=== PATIENT | female | born 1975 ===

== ENCOUNTER → 2022-09-29 08:43 | Outpatient (BNVA) | payer BC, SELFPAY | PROVIDERS: PCP Family Medicine; Visit Provider Physician Assistant ==

== ENCOUNTER 2022-10-23 08:01 | Outpatient (AMB) | payer BC, SELFPAY ==
--- NOTE | 2022-10-23 08:48 | MHC.OFFVISWM ---
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 HPI Details Start time: 9.00am, End time: 9.45am I spent 40 minutes speaking with the patient on the phone plus an additional 5 minutes reviewing and updating records for a total of 45 minutes HPI Comments History of Present Illness Details Previous weight loss efforts: self diets, exercise Wakes up: 4.30am, Sleeps: 9pm Breakfast: brunch on weekends Lunch: usually skips, 1pm if she has one Dinner: 7.30pm (pasta, rice, vegetables, meat) Snacks: one snack on weekends Exercise: walking, has a home [employer] membership Fluids: Coffee: 20oz/day with milk, tea: none, soda: none, juice: none, ETOH: beer x6 bottles or wine x2 glasses x1-2/week PFSH Medical History (Updated 10/23/22 @ 08:52 by Alireza Hyde MD) Hypersomnolence Hyperlipidemia Diverticulitis DJD (degenerative joint disease) Morbid obesity Surgical History (Updated 09/29/22 @ 09:06 by Veronique Arboleda CMA) Hx of tubal ligation Hx of cholecystectomy Social History (Updated 09/29/22 @ 09:06 by Veronique Arboleda CMA) Alcohol intake: current Alcohol intake frequency: a few times a week Patient Tobacco Use Status: Never used Tobacco Assessment & Plan Assessment & Plan (1) Morbid obesity: Code(s): E66.01 - Morbid (severe) obesity due to excess calories Plan: 1. Plan for lap sleeve gastrectomy. If diaphragmatic or ventral hernias are present at time of surgery, these will be repaired laparoscopically as well. Risks and complications were discussed in detail including possible conversion to an open procedure, anastomotic leak, bleeding requiring transfusion, small bowel obstruction, , DVT and pulmonary embolism, cardiac, or pulmonary complications, as long term care phlebotomist complications such as anastomotic ulcer, insufficient weight loss and vitamin deficiencies. I emphasized the importance of close follow-up, adherence to instructions and good communication. 2. Nutritional counseling. Start with 2 BSN Catherine-6 (1 scoop = 22gr protein) protein shakes (HALF scoop EACH in 8oz water each) at 6am-8am and 9am-11am, 2 protein bars (Zone Perfect protein bars, buy at [employer], [employer], [employer], or [employer]) at 12pm-2pm and 3pm-5pm and dinner at 6pm-7pm (10 forks of protein and 10 forks of salad/vegetables). Meal to include lean meat (beef, fish, pork, turkey, chicken), or swedish yogurt, or egg whites, or beans with a salad with olive oil and fruits (berries, pears, apples, kiwi). Avoid salt, breads, potatoes, rice, pasta, desserts. 3. Each shake would be drunk slowly, like coffee in a period of 2 hours. May add your coffee into your shakes, if flavors match. 4. Cut each bar in 4 pieces and eat each piece in 30min to make each bar last 2 hours. 5. I emphasized the importance of measuring accurately the food portion and measure it when serving the food in plate 6. The meal portions include 10 full-size forks of meat and 10 full-size forks of salad. You always eat the meat portion but you can replace up to 5 forks for salad/vegetables with rice, potatoes or pasta, or a fruit if you like. The less you do it the better weight loss will be. 7. One full-size fork is what it can be scooped on the fork without falling aside and not what can be bit with the fork. Use regular forks like those you find in a typical restaurant. 8. Please send me weight measurements as soon as possible and then once a week. Always include your diet and exercise plan. 9. Start Elliptical with an incline of 2.0 and resistance of 4.0. Increase resistance by 1 every 3 min to a max resistance of 10.0, and repeat cycles for the goal calorie of the day. Goal is to burn 2000 calories per week on exercise, which means either 300 calories daily, or 400 calories 5 days per week, or 500 calories 4 days per week, or 650 calories 3 days per week. 10. Although it is unlikely, it is important, if you are not on menopause, of avoiding and for at least 18 months postoperatively and has been discussed at the infosession. 11. Goal is to lose at least 1.5-2lbs per week 12. Goal to lose 10% of your weight before surgery, which is about 2lbs. Ultimate weight goal: 259lbs before surgery 13. Please follow the diet plan exactly without any change. If you don't like something about the plan or you feel hungry you need to communicate with me so I can help you revise the plan. You should not change the plan yourself. (2) Hyperlipidemia: Code(s): E78.5 - Hyperlipidemia, unspecified (3) Hypersomnolence: Code(s): G47.10 - Hypersomnia, unspecified Orders: Orders Lipid Panel Today E66.01 - Morbid (severe) obesity due to excess calories, E78.5 - Hyperlipidemia, unspecified, G47.10 - Hypersomnia, unspecified IRON PROFILE Today E66.01 - Morbid (severe) obesity due to excess calories, E78.5 - Hyperlipidemia, unspecified, G47.10 - Hypersomnia, unspecified Vitamin B12 and Folate Today E66.01 - Morbid (severe) obesity due to excess calories, E78.5 - Hyperlipidemia, unspecified, G47.10 - Hypersomnia, unspecified Zinc Today E66.01 - Morbid (severe) obesity due to excess calories, E78.5 - Hyperlipidemia, unspecified, G47.10 - Hypersomnia, unspecified Vitamin B1 Today E66.01 - Morbid (severe) obesity due to excess calories, E78.5 - Hyperlipidemia, unspecified, G47.10 - Hypersomnia, unspecified Vitamin A Today E66.01 - Morbid (severe) obesity due to excess calories, E78.5 - Hyperlipidemia, unspecified, G47.10 - Hypersomnia, unspecified C Reactive Protein Today E66.01 - Morbid (severe) obesity due to excess calories, E78.5 - Hyperlipidemia, unspecified, G47.10 - Hypersomnia, unspecified TSH reflex Free T4 Today E66.01 - Morbid (severe) obesity due to excess calories, E78.5 - Hyperlipidemia, unspecified, G47.10 - Hypersomnia, unspecified H Pylori Breath Test Today E66.01 - Morbid (severe) obesity due to excess calories, E78.5 - Hyperlipidemia, unspecified, G47.10 - Hypersomnia, unspecified Vitamin D 25-OH Total Today E66.01 - Morbid (severe) obesity due to excess calories, E78.5 - Hyperlipidemia, unspecified, G47.10 - Hypersomnia, unspecified Hemoglobin A1c Today E66.01 - Morbid (severe) obesity due to excess calories, E78.5 - Hyperlipidemia, unspecified, G47.10 - Hypersomnia, unspecified US abdomen comp w elastography Today E66.01 - Morbid (severe) obesity due to excess calories, E78.5 - Hyperlipidemia, unspecified, G47.10 - Hypersomnia, unspecified FL upper GI w air Today E66.01 - Morbid (severe) obesity due to excess calories, E78.5 - Hyperlipidemia, unspecified, G47.10 - Hypersomnia, unspecified Insulin Today E66.01 - Morbid (severe) obesity due to excess calories, E78.5 - Hyperlipidemia, unspecified, G47.10 - Hypersomnia, unspecified Complete Blood Count Auto Diff Today E66.01 - Morbid (severe) obesity due to excess calories, E78.5 - Hyperlipidemia, unspecified, G47.10 - Hypersomnia, unspecified Comprehensive Met. Panel Today E66.01 - Morbid (severe) obesity due to excess calories, E78.5 - Hyperlipidemia, unspecified, G47.10 - Hypersomnia, unspecified Ferritin Today E66.01 - Morbid (severe) obesity due to excess calories, E78.5 - Hyperlipidemia, unspecified, G47.10 - Hypersomnia, unspecified PTHI Today E66.01 - Morbid (severe) obesity due to excess calories, E78.5 - Hyperlipidemia, unspecified, G47.10 - Hypersomnia, unspecified XR chest 2V Today E66.01 - Morbid (severe) obesity due to excess calories, E78.5 - Hyperlipidemia, unspecified, G47.10 - Hypersomnia, unspecified ECG 12 lead EKG Today E66.01 - Morbid (severe) obesity due to excess calories, E78.5 - Hyperlipidemia, unspecified, G47.10 - Hypersomnia, unspecified RT home sleep study Today E66.01 - Morbid (severe) obesity due to excess calories, E78.5 - Hyperlipidemia, unspecified, G47.10 - Hypersomnia, unspecified Referrals Behavioral Health Referral E66.01 - Morbid (severe) obesity due to excess calories, E78.5 - Hyperlipidemia, unspecified, G47.10 - Hypersomnia, unspecified Nutrition/Dietitian Referral E66.01 - Morbid (severe) obesity due to excess calories, E78.5 - Hyperlipidemia, unspecified, G47.10 - Hypersomnia, unspecified Telehealth Telehealth Location of provider rendering services: practice address Location of patient: address on file Patient Identification confirmed using: Name, : Yes Telehealth method: voice only Patient verbally consented to treatment: Yes Patient verbally consented to billing insurance company: Yes Patient informed of any privacy concerns related to visit: Yes Minutes spent on Phone/Video with Pt.: 45 Coding Level of Care Code Tele [facility] Pt Level 4 (39513) Diagnoses Morbid obesity E66.01 Hyperlipidemia E78.5 Hypersomnolence G47.10 Time Spent (min) 45
[2022-10-23 09:36] VITALS: BMI 40.0
== END 2022-10-23 09:37 | disposition home or self-care (01) ==
LOC: HO.HBS 08:01
PROVIDERS: PCP Family Medicine; Visit Provider Surgery
DX: E66.01 Morbid (severe) obesity due to excess calories (principal); Z68.41 Body mass index [BMI] 40.0-44.9, adult; E78.5 Hyperlipidemia, unspecified; G47.10 Hypersomnia, unspecified
CPT/HCPCS: 99443

== ENCOUNTER → 2022-10-23 08:01 | Outpatient (BNVA) | payer BC, SELFPAY | PROVIDERS: PCP Family Medicine; Visit Provider Surgery ==

== ENCOUNTER → 2022-10-26 15:26 | Outpatient (REF) | payer BC, SELFPAY ==
--- NOTE | ~2022-10-26 | XR_ITS ---
EXAMINATION: XR CHEST 2 VIEWS CLINICAL INFORMATION: Morbid obesity. COMPARISON: None. TECHNIQUE: Frontal and lateral views of the chest were obtained. FINDINGS: The heart, great vessels, pulmonary vasculature and mediastinum are normal. The lungs show no focal infiltrate, effusion or pneumothorax. There is no acute osseous abnormality. XR/XR chest 2V IMPRESSION: No active cardiopulmonary disease.
--- NOTE | 2022-10-26 15:32 | ECG_ITS ---
Test Reason : morbid obesity Blood Pressure : / mmHG Vent. Rate : 067 BPM Atrial Rate : 067 BPM P-R Int : 120 ms QRS Dur : 100 ms QT Int : 414 ms P-R-T Axes : 020 -36 035 degrees QTc Int : 437 ms Normal sinus rhythm Left axis deviation Moderate voltage criteria for LVH, may be normal variant ( R in aVL , Marcelino product ) Abnormal ECG No previous ECGs available Referred By: Alireza Hyde Electronically Signed By:HEIDY WALLACE
== END ==
LOC: HO.CARD 15:26
PROVIDERS: PCP Family Medicine; Visit Provider Surgery
DX: E66.01 Morbid (severe) obesity due to excess calories (principal); E78.5 Hyperlipidemia, unspecified; G47.10 Hypersomnia, unspecified
CPT/HCPCS: 71046; 93005

== ENCOUNTER 2022-10-30 06:16 | Outpatient (REF) | payer BC, SELFPAY ==
[2022-10-30 06:37] LABS: MANUAL DIFF FLAG NO
[2022-10-30 08:12] LABS: Basophils Absolute Auto 0.1 X10*3/uL (0.0-0.2); Basophils Percent Auto 0.8 % (0-2); Eosinophils Absolute Auto 0.2 X10*3/uL (0.0-0.4); Eosinophils Percent Auto 2.4 % (0-4); Hemoglobin 12.1 g/dl (12.0-16.0); Imm Gran Abs Auto 0.01 X10*3/uL (0.00-0.03); Imm Gran Pct Auto 0.2 % (0.0-0.4); Lymphocytes Absolute Auto 1.2 X10*3/uL (1.2-4.9); Lymphocytes Percent Auto 18.8 % (20-40); Mean Corpuscular Hemoglobin 23.8 pg (27.0-33.0); Mean Corpuscular Volume 76.8 fL (80.0-98.0); Mean Platelet Volume 9.8 fL (9.4-12.3); Monocytes Absolute Auto 0.5 X10*3/uL (0.1-1.2); Monocytes Percent Auto 7.4 % (2-11); Neutrophils Absolute Auto 4.7 x10*3/uL (2.0-8.3); Neutrophils Percent Auto 70.4 % (45-73); Platelet Count 378 X10*3/uL (160-400); Red Blood Count 5.08 X10*6/uL (4.20-5.50); Red Cell Distribution Width 15.4 % (11.0-16.0); White Blood Count 6.6 X10*3/uL (4.8-10.8)
[2022-10-30 08:20] LABS: Estimated Average Glucose 108 mg/dL; Hemoglobin A1c % 5.4 % (<6.0)
[2022-10-30 08:56] LABS: Alanine Aminotransferase 19 U/L (0-31); Albumin Level 4.2 g/dL (3.5-5.0); Alkaline Phosphatase 68 U/L (39-117); Anion Gap 13 (12-20); Aspartate Amino Transferase 17 U/L (5-31); Bilirubin Total 0.6 mg/dL (0.0-1.0); Blood Urea Nitrogen 20 mg/dL (9-16); C Reactive Protein 1.07 mg/dL (< or = 0.50); Calcium 9.4 mg/dL (8.4-10.2); Carbon Dioxide 23 mmol/L (22-29); Chloride 106 mmol/L (96-108); Cholesterol 233 mg/dL (<200); Estimated Glomerular Filt Rate > 60; Glucose Random 99 mg/dL (60-115); HDL Cholesterol 57 mg/dL (>40); Iron 52 mcg/dL (30-160); LDL Cholesterol Calculated 159 mg/dL (<100); Percent Iron Saturation 13 % (15-50); Potassium 4.3 mmol/L (3.3-5.1); Sodium 138 mmol/L (135-145); Total Iron Binding Capacity 407 mcg/dL (228-428); Total Protein 7.5 g/dL (6.5-8.0); Triglycerides 85 mg/dL (<150); Unsaturated Iron Binding 355 ug/dL
[2022-10-30 09:03] LABS: Ferritin 13 ng/mL (10-250); Insulin 25 uU/mL (2-29); TSH reflex Free T4 0.95 uIU/mL (0.32-4.0); Vitamin D 25-OH Total 28.9 ng/mL (>30)
[2022-10-30 09:07] LABS: Folate 11.7 ng/mL (> or = 4.0); Vitamin B12 517 pg/mL (200-900)
[2022-11-02 13:59] LABS: Calcium (PTHI) 9.6 mg/dL (8.6-10.2); PTHI 81 pg/mL (16-77)
[2022-11-03 14:09] LABS: Zinc 78 mcg/dL (60-130)
[2022-11-04 21:13] LABS: Vitamin A 43 mcg/dL (38-98)
[2022-11-07 15:18] LABS: Vitamin B1 9 nmol/L (8-30)
== END 2022-10-30 06:17 | disposition home or self-care (01) ==
LOC: HO.LAB 06:16
PROVIDERS: PCP Family Medicine; Visit Provider Surgery
DX: E66.01 Morbid (severe) obesity due to excess calories (principal); E78.5 Hyperlipidemia, unspecified; G47.10 Hypersomnia, unspecified
CPT/HCPCS: 36415; 80053; 80061; 82306; 82607; 82728; 82746; 83036; 83525; 83540; 83970; 84425; 84443; 84590; 84630; 85025; 86140

== ENCOUNTER 2022-11-04 13:23 | Outpatient (AMB) | payer BC, SELFPAY ==
--- NOTE | 2022-11-04 12:52 | A.OFFWM_ITS ---
Intake Intake Visit Reasons: VIDEO BH Intake Allergies No Known Allergies [No Known Allergies*] Allergy (Verified 10/23/22 08:49) PFSH Medical History (Updated 11/04/22 @ 13:28 by Debbie Hernandez) Hypersomnolence Hyperlipidemia Diverticulitis DJD (degenerative joint disease) Morbid obesity Surgical History (Updated 09/29/22 @ 09:06 by Veronique Arboleda CMA) Hx of tubal ligation Hx of cholecystectomy Social History (Updated 09/29/22 @ 09:06 by Veronique Arboleda CMA) Alcohol intake: current Alcohol intake frequency: a few times a week Patient Tobacco Use Status: Never used Tobacco Behavioral Health Assessment Weight Management Therapy Therapy Notes Details Patient stated that she is looking to have weight loss surgery to help improve her health and quality of life. She has no history of inpatient psychiatric admissions, history of problems with drugs or alcohol and no eating disorder diagnosis. Pt reported that she has struggles with anxiety struggles (insecurity and self esteem as well) and was seeing a therapist more than 7 years ago. She does not take medication for anxiety but has in the past as needed (Lorazepam). Also stress due to toxic relationship. Presenting Concerns Referral Source provider Reason for referral weight loss surgery evaluation Precipitating Event obesity Living Situation Current Living Situation Own At risk of losing current housing? No Satisfied with current living situation? Yes Comments Pt lives with her two dogs and her fiance. Food/Weight/Diet Expectations of change weight loss and maintenance History/Relationship with weight . She reported being 220lbs when she met her partner 7 years ago. Also quit smoking 4 years ago which caused weight gain. She reported being very thin until age 18 and then reached her heaviest after being out on control implant. She had her daughter at 15 years old. History/Relationship with dieting exercise, eating healthy Social History Family history and relationship Pt has two adult children ages 31 and 26 and two grandchildren. She has been with partner for 7 years. Pt stated that she was born in [place] and raised in this area by her mother and stepfather and two younger brothers. Her mother at age 59 years from drug addiction and HIV. Her biological father came into her life at age 15 and passed a few years ago. 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 none known Education Highest grade completed college Preferred learning style Auditory, Verbal, Written, Learn by doing and Visual Currently enrolled in educational program? No Interested in further educational program? 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 No Meaningful activities walking her dogs Financial Situation Describe current financial situation Comfortable Financial assistance? None Service Service? No Mental Health and Addiction Treatment Current/Past substance abuse? No Current/Past addictive behavior concerns? No Medical and Physical Health Summary Physical exam in the last year? Yes Pain Screening Current pain? No Pain in the last few months? No Medications Is the patient compliant with medications? Yes Does the patient have Calix Guardian in place? Not applicable Does the patient use complimentary health approaches? No Trauma/Abuse History History of trauma? Yes Questionnaires PHQ-9 Over the last 2 weeks, how often have you been bothered by any of the following problems? 1. Little interest or pleasure in doing things: more than half the days 2. Feeling down, depressed, or hopeless: several days 3. Trouble falling or staying asleep, or sleeping too much: several days 4. Feeling tired or having little energy: several days 5. Poor appetite or overeating: several days 6. Feeling bad about yourself - or that you are a failure or have let yourself or your family down: more than half the days 7. Trouble concentrating on things, such as reading the newspaper or watching television: several days 8. Moving or speaking so slowly that other people could have noticed. Or the opposite - being so fidgety or restless that you have been moving around a lot more than usual: not at all 9. Thoughts that you would be better off or of hurting yourself in some way: not at all Total score: 9 Depression Screening Interpretation: Positive Source: Developed by Drs. Siva Hays, Shanna Colindres, Khurram Cole and colleagues, with an educational camilo from [employer]. Binge Eating Scale Group 1 A. I don't feel self-conscious about my wt. or body size when I'm with others. B. I feel concerned about how I look to others, but it normally does not make me fell disappointed with myself C. I do get self-conscious about my appearance and wt. which makes me feel disappointed in myself. D. I feel very self-conscious about my wt. and frequently I feel intense shame and disgust for myself. I try to avoid social contacts because of my self- consciousness. Response Group 1: C Group 2 A. I don't have any difficulty eating slowly in the proper manner. B. Although I seem to gobble down foods, I don't end up feeling stuffed because of eating to much. C. At times, I tend to eat quickly and then, I feel uncomfortably full afterwards. D. I have the habit of bolting down my food, without really chewing it. When this happens I usually feel uncomfortably stuffed because I've eaten to much. Response Group 2: C Group 3 A. I feel capable to control my eating urges when I want to. B. I feel like I have failed to control my eating more than the average person. C. I feel utterly helpless when it comes to feeling in control of my eating urges. D. Because I feel so helpless about controlling my eating I have become very desperate about trying to get control. Response Group 3: A Group 4 A. I don't have the habit of eating when I'm bored. B. I sometimes eat when I'm bored, but often I'm able to get busy and get my mind off food. C. I have a regular habit of eating when I'm bored, but occasionally, I can use some other activity to get my mind off eating. D. I have a strong habit of eating when I'm bored. Nothing seems to help me breath the habit. Response Group 4: C Group 5 A. I'm usually physically hungry when I eat something. B. Occasionally, I eat something on impulse even though I really am not hungry. C. I have the regular habit of eating foods, that I might not really enjoy, to satisfy a hungry feeling even though physically, I don't need the food. D. Although I'm not physically hungry, I get a hungry feeling in my mouth that only seems to be satisfied when I eat a food, like sandwich, that fills my mouth. Sometimes, when I eat the food to satisfy my mouth hunger, I then spit the food out so I won't gain weight. Response Group 5: A Group 6 A. I don't feel any guilt or self-hate after I overeat. B. After I overeat, occasionally I feel guilt or self-hate. C. Almost all the time I experience strong guilt or self-hate after I overeat. Response Group 6: C Group 7 A. I don't lose total control of my eating when dieting even after periods when I overeat. B. Sometimes when I eat a forbidden food on a diet, I feel like I blew it and eat even more. C. Frequently, I have the habit of saying to myself, I've blown it now, why not go all the way, when I overeat on a diet. When that happens I eat more. D. I have a regular habit of starting a strict diets for myself but I break the diets by going on an eating binge. My life seems to be either a feast or famine. Response Group 7: B Group 8 A. I rarely eat so much food that I feel uncomfortably stuffed afterwards. B. Usually about once a month, I each such a quantity of food, I end up feeling very stuffed. C. I have regular periods during the month when I eat large amounts of food, either at mealtime or at snacks. D. I eat so much food that I regularly feel quite uncomfortable after eating and sometimes a bit nauseous. Response Group 8: B Group 9 A. My level of calorie intake does not go up very high or go down very low on a regular basis. B. Sometimes after I overeat, I will try to reduce my caloric intake to almost nothing to compensate for the excess calories I've eaten. C. I have a regular habit of overeating during the night. It seems that my routine is not to be hungry in the morning but overeat in the evening. D. In my adult years, I have had week-long periods where I practically starve myself. This follows periods when I overeat. It seems I live a life of either feast or famine. Response Group 9: D Group 10 A. I usually am able to stop eating when I want to. I know when enough is enough. B. Every so often, I experience a compulsion to eat which I can't seem to control. C. Frequently, I experience strong urges to eat which I seem unable to control, but at other times I can control my eating urges. D. I feel incapable of controlling urges to eat. I have a fear of not being able to stop eating voluntarily. Response Group 10: B Group 11 A. I don't have any problem stopping eating when I feel full. B. I usually can stop eating when I feel full but occasionally overeat leaving me feeling uncomfortably stuffed. C. I have a problem stopping eating once I start and usually I feel uncomfortably stuffed after I eat a meal. D. Because I have a problem not being able to stop eating when I want, I sometimes have to induce vomiting to relieve my stuffed feeling. Response Group 11: B Group 12 A. I seem to eat just as much when I'm with others, Family social gatherings as when I'm by myself. B. Sometimes, when I'm with other persons, I don't eat as much as I want to eat because I'm self-conscious about my eating. C. Frequently, I eat only a small amount of food when others are present, because I'm very embarrassed about my eating. D. I feel so ashamed about overeating that I pick times to overeat when I know no one will see me. I feel like a closet eater. Response Group 12: A Group 13 A. I eat three meals a day with only an occasional between meal snack. B. I eat 3 meals a day, but I also normally snack between meals. C. When I am snacking heavily, I get in the habit of skipping regular meals. D. There are regular periods when I seem to be continually eating, with no planned meals. Response Group 13: C Group 14 A. I don't think much about trying to control unwanted eating urges. B. At least some of the time, I feel my thoughts are pre-occupied with trying to control my eating urges. C. I feel that frequently I spend much time thinking about how much I ate or about trying not to eat anymore. D. It seems to me that most of my waking hours are pre-occupied by thoughts about eating or not eating. I feel like I'm constantly struggling not to eat. Response Group 14: B Group 15 A. I don't think about food a great deal. B. I have strong craving for food but they last only for brief periods of time. C. I have days when I can't seem to think about anything else but food. D. Most of my days seem to be pre-occupied with thoughts about food. I feel like I live to eat. Response Group 15: B Group 16 A. I usually know whether or not I'm physically hungry. I take the right portion of food to satisfy me. B. Occasionally, I feel uncertain about knowing whether or not I'm physically hungry. A these times it's hard to know how much food I should take to satisfy me. C. Even though I might know how many calories I should eat, I don't have any idea what is a normal amount of food for me. Response Group 16: C Binge Eating Score: 21 Score less than 17 Minimal Risk Score between 18-26 Moderate Risk Score between 27-46 High Risk Assessment & Plan Assessment & Plan (1) Complex posttraumatic stress disorder: Code(s): F43.10 - Post-traumatic stress disorder, unspecified (2) Morbid obesity: Code(s): E66.01 - Morbid (severe) obesity due to excess calories Plan Patient was tearful when talking about her history and often struggles with any triggers that remind her. She can cry often and very easily that it embarrasses her. She is doing well in the program and is interested in additional therapeutic support. Patient is cleared for surgery when ready. Telehealth Telehealth Location of provider rendering services: practice address Location of patient: other Patient Identification confirmed using: Name, : Yes Telehealth method: video Patient verbally consented to treatment: Yes Patient verbally consented to billing insurance company: Yes Patient informed of any privacy concerns related to visit: Yes Minutes spent on Phone/Video with Pt.: 40 Coding Level of Care Code Tele Psy Diag Eval (20347) Diagnoses Complex posttraumatic stress disorder F43.10 Morbid obesity E66.01 Time Spent (min) 40
== END 2022-11-04 13:30 | disposition home or self-care (01) ==
LOC: HO.HBST 13:23
PROVIDERS: PCP Family Medicine; Visit Provider Counselor Mental Health
DX: F43.12 Post-traumatic stress disorder, chronic (principal); E66.01 Morbid (severe) obesity due to excess calories; Z68.41 Body mass index [BMI] 40.0-44.9, adult
CPT/HCPCS: 90791

== ENCOUNTER → 2022-11-04 13:23 | Outpatient (BNVA) | payer BC, SELFPAY | PROVIDERS: PCP Family Medicine; Visit Provider Counselor Mental Health ==

== ENCOUNTER → 2022-11-05 08:39 | Outpatient (REF) | payer BC, SELFPAY ==
--- NOTE | 2022-11-05 08:42 | CA_ITS ---
Transthoracic Echocardiogram Patient (Last, First, Middle): Jolynn Coyne, Gender: Female Date of : 1975 Age: 47 Procedure Date: 11/05/2022 Procedure Type: Transthoracic Echocardiogram Location: OP Height: 180.34 cm Weight: 124.74 kg BSA: 2.41 m2 Heart Rate: bpm BP: 126 / 84 mmHg It Security Manager: BIJAL Referring MD: Alireza Hyde MD Symptoms: I51.7 - Cardiomegaly Study Quality: Adequate w contrast ECG Rhythm: Sinus Conclusions: - The left ventricular systolic function is normal. The visually estimated ejection fraction is between 55-60%. - No obvious valvular pathology seen on this study. Findings Procedure Information Contrast agent, definity, is being given per protocol without apparent complications. Left Ventricle Normal left ventricular cavity size. There is normal left ventricular wall thickness. The left ventricular systolic function is normal. The visually estimated ejection fraction is between 55-60%. There is no evidence of regional wall motion abnormalities. Diastolic function is normal for age. Right Ventricle Normal right ventricular cavity size and systolic function. Atria Both atria are normal in size. Aortic Valve The aortic valve structure and function is likely normal. There is no aortic valve stenosis. There is no aortic valve regurgitation. Mitral Valve The mitral valve appears normal. There is trace mitral valve regurgitation. There is no mitral valve stenosis. Pulmonic Valve The pulmonic valve is likely normal. Tricuspid Valve There is no tricuspid valve regurgitation. Tricuspid regurgitation envelope is inadequate for calculation of right ventricular systolic pressure. Great Vessels The asc aorta is normal in size. Venous The inferior vena cava is mildly dilated and collapses greater than 50% with inspiration. Pericardium/Pleural There is no evidence of pericardial effusion. Prior Study Comparison No prior study available for comparison. Recommendations, Care & Conclusions No obvious valvular pathology seen on this study. Measurements 2D Linear Measurements IVSd: 1.07 0.6-0.9/0.6-1.0 cm LVIDd: 5.29 3.9-5.3/4.2-5.9 cm LVIDd Index: 2.20 2.4-3.2/2.2-3.1 cm/m2 LVIDs: 3.28 2.0-3.6 cm LVPWd: 1.05 0.7-1.1 cm LA Diam: 4.40 2.7-3.8/3.0-4.0 cm LAIDs Index: 1.83 1.5-2.3 cm/m2 LV Mass: 269.19 67-162/88-224 g LV Mass Index: 111.70 43-95/49-115 g/m2 LVOT Diam: 2.20 3.0+(-)1.3 cm 2D Systolic Function EF 4C: 54.60 >55% EF 2C: 67.10 >55% EF BiP: 61.80 >55% Mitral Valve MV Pk E: 0.80 MV PK A: 0.60 MV Decel Time: 243.00 E/A: 1.30 E'Lateral: 12.00 E'Medial: 8.59 E/E' Med: 9.30 E/E' Lat: 6.60 PHT: 71.00 MVA PHT: 3.10 Decel Foster: 3.27 Aortic Valve AoV Pk Bill: 1.56 AoV Mn Bill: 1.06 AoV VTI: 0.36 AoV Pk Grad: 10.00 Aov Mn Grad: 5.00 GUERO Cont.VTI: 3.23 LVOT LVOT Pk Bill: 1.41 LVOT Mn Bill: 0.89 LVOT VTI: 0.31 LVOT Pk Grad: 8.00 LVOT Mn Grad: 4.00 LVOT Diam: 2.20 LVOT Area: 3.80 Diastolic Function MV Pk E: 0.80 MV Pk A: 0.60 E/A: 1.30 E'Medial: 8.59 E/E' Med: 9.30 E' Laterial: 12.00 E/E' Lat: 6.60 Right Ventricle TAPSE (mm): 26.30 TVS' Bill: 14.00 Tricuspid Valve RA Press: 8.00 Great Vessels Aorta Sinus of Valsalva: 3.13 2.0-3.[address] Ridge: 2.60 1.7-3.4 cm Ao Asc: 3.30 2.1-3.4 cm Ao Arch: 2.80 Updated in Other Vendor System with Status of Final Biju Louis MD electronically signed on 11/05/2022 3:00:55 PM with status of Final
== END ==
LOC: HO.CARD 08:39
PROVIDERS: PCP Family Medicine; Visit Provider Surgery
DX: I51.7 Cardiomegaly (principal); R94.31 Abnormal electrocardiogram [ECG] [EKG]
CPT/HCPCS: 93306; Q9957

== ENCOUNTER → 2022-11-05 08:42 | Outpatient (BNV) | payer BC, SELFPAY | PROVIDERS: PCP Family Medicine; Visit Provider Internal Medicine | DX: I51.7 Cardiomegaly (principal); R94.31 Abnormal electrocardiogram [ECG] [EKG] | CPT/HCPCS: 93306 ==

== ENCOUNTER → 2022-11-13 07:53 | Outpatient (REF) | payer BC, SELFPAY ==
--- NOTE | 2022-11-13 07:55 | CA_ITS ---
Acquisition Time: 2022-11-13 08:12:50 Total Exercise Time: 00:06:32 Test Indications: ABN EKG Medications: SEE H Protocol: EUGENIO Max HR: 169 BPM 97% of Pred: 173 BPM Max BP: 204/050 mmHG Max Work Load: 7.8 METS Exercise stress test exercise 6 min 32 sec of Eugenio protocol achieving 97% MPHR and 7.8 METs, with mild to moderate SOB, no chest discomfort, without arrhythmias, with nresting BP 128/70 max BP 204/50, with downsloping in aVL and scooping in lead 1. Test reviewed with Dr. Ha ( on vacation and hence signed by me - report was requested by ordering physician) Referred By: Alireza Hyde Overread By: CARMEN PUCKETT
[2022-11-13 15:44] LABS: H Pylori Breath Test Negative (Negative)
== END ==
LOC: HO.CARD 07:53
PROVIDERS: PCP Family Medicine; Visit Provider Surgery
DX: I51.7 Cardiomegaly (principal); R94.31 Abnormal electrocardiogram [ECG] [EKG]; E66.01 Morbid (severe) obesity due to excess calories; E78.5 Hyperlipidemia, unspecified; G47.10 Hypersomnia, unspecified
CPT/HCPCS: 83013; 93017; 99211

== ENCOUNTER → 2022-11-13 07:55 | Outpatient (BNV) | payer BC, SELFPAY | PROVIDERS: PCP Family Medicine; Visit Provider Internal Medicine | DX: R06.02 Shortness of breath (principal) | CPT/HCPCS: 93016; 93018 ==

== ENCOUNTER 2022-11-16 07:58 | Outpatient (AMB) | payer BC, SELFPAY ==
--- NOTE | 2022-11-16 07:59 | MHC.OFFVISWM ---
Intake VS Expanded 11/16/22 08:11 Height 5 ft 11 in Weight 273 lb 7 oz BMI 38.1 Body Fat % 50 Body Fat Mass 136.8 Fat Free Mass 136.8 Visceral Fat Rating 19 Body Water % 34.2 Body Water Mass 93.6 Basal Metabolic Rate/Score 1,946 Intake Visit Reasons: TV Follow Up SWL - 1ST Allergies No Known Allergies [No Known Allergies*] Allergy (Verified 10/23/22 08:49) HPI TV Follow Up SWL - 1ST HPI Details Start time: 7.56am, End time: 8.19am ?I spent 18 minutes speaking with the patient on the phone plus an additional 5 minutes reviewing and updating records for a total of 23 minutes HPI Comments History of Present Illness Details Overall weight loss: 13.3lbs, or 4.63% TBWL Is doing 2 BSN Essie Fix protein shakes (1/2 scoop in water), 2 Zone Perfect protein bars and one meal (10 forks of protein and 10 forks of broccoli) Exercise: walking x4/week for unknown calories PFSH Medical History (Updated 11/16/22 @ 08:12 by Alireza Hyde MD) Hypersomnolence Hyperlipidemia Diverticulitis DJD (degenerative joint disease) Morbid obesity Surgical History (Updated 09/29/22 @ 09:06 by Veronique Arboleda CMA) Hx of tubal ligation Hx of cholecystectomy Social History (Updated 09/29/22 @ 09:06 by Veronique Arboleda CMA) Alcohol intake: current Alcohol intake frequency: a few times a week Patient Tobacco Use Status: Never used Tobacco Assessment & Plan Assessment & Plan (1) Obesity: Code(s): E66.9 - Obesity, unspecified Plan: 1. Continue same nutritional plan of 2 BSN Essie Fix protein shakes (1/2 scoop in water), 2 Zone Perfect protein bars and one meal (10 forks of protein and 10 forks of broccoli). 2. Start Elliptical with an incline of 2.0 and resistance of 4.0. Increase resistance by 1 every 3 min to a max resistance of 10.0, and repeat cycles for 300 calories. Goal is to burn 2000 calories per week on exercise, which means either 300 calories daily, or 400 calories 5 days per week, or 500 calories 4 days per week, or 650 calories 3 days per week. 3. Walking outside should be only in addition to the Elliptical and not in replacement of it 4. Continue to send me weight measurements weekly on Saturdays (2) BMI 38.0-38.9,adult: Code(s): Z68.38 - Body mass index [BMI] 38.0-38.9, adult Telehealth Telehealth Location of provider rendering services: practice address Location of patient: address on file Patient Identification confirmed using: Name, : Yes Telehealth method: voice only Patient verbally consented to treatment: Yes Patient verbally consented to billing insurance company: Yes Patient informed of any privacy concerns related to visit: Yes Minutes spent on Phone/Video with Pt.: 23 Coding Level of Care Code Tele Est Pt Level 3 (73187) Diagnoses Obesity E66.9 BMI 38.0-38.9,adult Z68.38 Time Spent (min) 23
--- OUTSIDE RECORDS SUMMARY | 2022-11-16 08:00 | XMS_ITS | Continuity of Care Document ---
Author Name Unknown Organization [facility] Address [address] [place] [address]- Care Team Providers Care Meat Sales And Storage Manager Name Role Phone Lulu Latif MD [id number] Date(s): 09/02/22 - 10/02/22 [facility] [address] [place] [address]- Attending Physician: Adriano Gomez Admitting Physician: Adriano Gomez Referring Physician: AdmtrAdriano Allergies, Adverse Reactions, Alerts No Known Medication Allergies Problem List Condition Confirmation Course Effective Dates Status Health St atus Informant Female stress incontinence Confirmed Active Obese class II Confirmed Active Vitamin D deficiency Confirmed Active Social History Social History Type Response Smoking Status Former smoker, quit more than 30 days ago entered on: 01/01/22 Sex Patient Care team information Care Team Personnel Name: Lulu Latif MD Position: [facility] Physician - Primary Care Member Role: PCP Address: Address: [address] [place], [place] [address] [place] [address]- Care Team Related Persons Name: MARILY BARNETT Address: home [address] [place] [id number] Name: BELKYS HARRIS Address: home [facility]
--- OUTSIDE RECORDS SUMMARY | 2022-11-16 08:00 | XMS_ITS | Continuity of Care Document ---
Author Name Unknown [facility] Address [address] [place] [address]- Care Team Providers Care Film Casting Operator Name Role Phone Lulu Latif MD Primary Care Physician ([facility])[phone] Encounter [facility] NBR [id number] Date(s): 02/26/22 - 03/28/22 [facility] [address] [place] [address]- Attending Physician: Adriano Gomez Admitting Physician: Adriano Gomez Referring Physician: AdmtrAdriano Allergies, Adverse Reactions, Alerts No Known Medication Allergies Medications NuLYTELY with Flavor Packs oral powder for reconstitution See Instructions, split prep method. drink one half the night before procedure at 5pm. drink secondhalf six hours prior to procedure., # 4,000 mL, 0 Refills, Maintenance, 06/22/22 17:00:00 EDT, [id number], test date, split prep metho... Start Date: 06/22/22 Status: Ordered Problem List Condition Confirmation Course Effective Dates Status Health St atus Informant Female stress incontinence Confirmed Active Obese class II Confirmed Active Vitamin D deficiency Confirmed Active Social History Social History Type Response Smoking Status Former smoker, quit more than 30 days ago entered on: 01/01/22 Sex Patient Care team information Care Team Personnel Name: Lulu Latif MD Position: [facility] Primary Care Physician Member Role: PCP Address: Address: [address] [place], [place] [address] [place] [address]- Care Team Related Persons Name: MARILY BARNETT Address: home [address] [place] [id number] Name: BELKYS HARRIS
--- OUTSIDE RECORDS SUMMARY | 2022-11-16 08:00 | XMS_ITS | Continuity of Care Document ---
Author Name Unknown Organization [facility] Address [address] [place] [address]- Care Team Providers Care Audit Tech Name Role Phone Lulu Latif MD Primary Care Physician ([facility])[phone] Encounter [facility] Date(s): 10/16/22 - 11/15/22 [facility] [address] [place] [address]- Attending Physician: Adriano Gomez Admitting Physician: Adriano Goemz Referring Physician: AdmtrAdriano Allergies, Adverse Reactions, Alerts No Known Medication Allergies Medications Diflucan 150 mg oral tablet 1 tablet = 150 mg, By Mouth, Once, # 1 tablet, 0 Refills, Soft Stop, 10/16/22 11:47:00 EDT, [facility] #[id number], Partial fill upon patient request if the prescription is for a schedule II opioid drug., 180, cm, 10/16/22 11:36:00 EDT, Height, 1... Start Date: 10/16/22 Status: Ordered Problem List Condition Confirmation Course Effective Dates Status Health St atus Informant Female stress incontinence Confirmed Active Severe obesity Confirmed Active Vitamin D deficiency Confirmed Active Social History Social History Type Response Smoking Status Former smoker, quit more than 30 days ago entered on: 01/01/22 Sex Radiology * Event Display: X-Ray Chest, Non- Authored Date: [id number] Patient Care team information Care Team Personnel Name: Lulu Latif MD Position: S Physician - Primary Care Member Role: PCP Address: Address: [address] [place] [address]- Care Team Related Persons Name: MARILY BARNETT Address: home [address] [place] [address] Name: BELKYS HARRIS Address: [facility]
--- OUTSIDE RECORDS SUMMARY | 2022-11-16 08:00 | XMS_ITS | Continuity of Care Document ---
Author Name Unknown Organization [facility] Address [address] [place], [place] [id number]- Care Team Providers Care Grinder Chipper Name Role Phone Lulu Latif MD Primary Care Physician [facility])[phone] [id number] Date(s): 02/19/22 - 03/21/22 [facility] [address] [place] [address]- Allergies, Adverse Reactions, Alerts No Known Medication Allergies Medications NuLYTELY with Flavor Packs oral powder for reconstitution See Instructions, split prep method. drink one half the night before procedure at 5pm. drink secondhalf six hours prior to procedure., # 4,000 mL, 0 Refills, Maintenance, 06/22/22 17:00:00 EDT, [id number], test date, split prep metho... Start Date: [...] Team Personnel Name: Lulu Latif MD Position: [facility] Primary Care Physician Member Role: PCP Address: Address: [address] [place] [address] [place] [address]- Care Team Related Persons Name: MARILY BARNETT Address: home [address] [place] [address] Name: BELKYS HARRIS
--- OUTSIDE RECORDS SUMMARY | 2022-11-16 08:00 | XMS_ITS | Continuity of Care Document ---
Author Name Unknown Organization [facility] Address [address] [place] [address]- Care Team Providers Care Can Filling Room Sweeper Name Role Phone Salomon HITCHCOCK, Lulu Tsang Primary Care Physician Encounter [facility] NBR [id number] Date(s): 08/11/22 - 08/18/22 [facility] [address] [place] [address]- Encounter Diagnosis Frequent headaches(Discharge Diagnosis) - 08/12/22 Attending Physician: Not on Staff, Attending MD Allergies, Adverse Reactions, Alerts No Known Medication Allergies Medications No Known Medications Problem List Condition Confirmation Course Effective Dates Status Health St atus Informant Female stress incontinence Confirmed Active Obese class II Confirmed Active Vitamin D deficiency Confirmed Active Diagnosis Diagnosis Type Effective Dates Health Status Cl inical Service Informant Frequent headaches Discharge Diagnosis 08/12/22 Vital Signs Most recent to oldest [Reference Range]: 1 Height 180 cm (08/11/22 1:57 PM) Weight 128 kg (08/11/22 1:57 PM) Oxygen Saturation [94-100 %] 95 % (08/11/22 1:57 PM) Pulse Rate [55-90 bpm] 66 bpm (08/11/22 1:57 PM) Body Mass Index [18.5-24.99 kg/m2] 39.51 kg/m2 *>HHI* (08/11/22 1:57 PM) Blood Pressure [90-138/55-84 mm Hg] 133/ 83mm Hg (08/11/22 1:57 PM) Temperature [96.8-100.4 DegF] 97.5 DegF (08/11/22 1:57 PM) Blood pressure sites Arm, right (08/11/22 1:57 PM) Temperature Route Temporal (08/11/22 1:57 PM) Weight Obtained Via Standing scale (08/11/22 1:57 PM) Social History Social History Type Response Smoking Status Former smoker, quit more than 30 days ago entered on: 01/01/22 Sex Note * Sri Barros: PERFORM, SIGN, VERIFY Event Display: Patient Education/Instruction Authored Date: [id number] [facility] *[facility] Clinical Summary Name NERY KING Age 46 Years 1975 PCP Lulu Latif [id number] Visit Date 08/11/2022 13:52:00 Additional Instructions: Scheduled Appointments?? Future Appointments ?*BMP??[facility]??Bltn [address],??[place],??[address] ?Phone:??--?Fax:??-- ?Appt. Date:??09/02/2022?10:45 AM ?Scheduled Provider:??Lulu Latif MD Follow-Up Instructions ?? Diagnosis Medications: Please continue your medications until treatment is completed or stopped by your provider. Discuss any questions related to medications with your provider. No Longer Take the Following Medications PEG Electrolyte Solution (NuLYTELY with Flavor Packs oral powder for reconstitution) split prep method. drink one half the night before procedure at 5pm. drink second half six hours prior to procedure.. Refills: 0. Allergy Info:?? No Known Medication Allergies Medications Given This Visit Future Orders ?No future orders Vital Signs Height 180 cm Weight 128 kg BMI 39.51 kg/m2 Blood Pressure 133 mm Hg/83 mm Hg Temperature 97.5 DegF Pulse Rate 66 bpm Respiratory Rate 02 Sat Mode of Delivery 95 %/ You can now view a summary of your hospital visit from the comfort of your home through a free online portal called [employer] [facility]. [employer] [facility] is a website that allows you to securely view your medical information including discharge summary, medications and follow-up visits. ??You can alsosend a secure electronic message to your doctor???s office to request appointments, renew medications or just ask a question. You can enroll at [email or web address] or register during your next office visit. Disclaimer:?? The information provided is of a general nature and is intended to be used in conjunction with the recommendations and advice of your health care practitioner. ??Every effort has been made to ensure that the information provided is accurate and complete at the time it is provided to you however, as your needs change, or, as new ??information becomes available, different or additional instructions may be required. If you have questions, please consult with your primary care provider or pharmacist, as appropriate. ??This information is not intended to serve as substitution for assessment and evaluation by a qualified health care provider. If you do not have a primary care provider, you may find a [facility] provider by calling [facility] [employer] Link at [phone]. For information about the plan of care including goals and instructions for your diagnosis, please see the patient education orders section of this document. Patient Education Materials?? The content of this educational material or handout may have been modified, supplemented, or adapted from its original content and format to support your individualized medical care. Patient Care team information Care Team Personnel Name: Lulu Latif MD Position: [facility] Physician - Primary Care Member Role: PCP Address: Address: [address] [place] [address] [place] [address]- Care Team Related Persons Name: MARLIY BARNETT Address: home [address] [place] [address] Name: BELKYS HARRIS Address: home [facility]
--- OUTSIDE RECORDS SUMMARY | 2022-11-16 08:00 | XMS_ITS | Continuity of Care Document ---
Author Name Unknown [facility] Address [address] [place] [address]- Care Team Providers Care Ice Bag Assembler Name Role Phone Lulu Latif MD Primary Care Physician ([facility])[phone] [facility] Date(s): 10/13/22 - 11/12/22 [facility] [address] [place] [address]- Allergies, Adverse Reactions, Alerts No Known Medication Allergies Medications Diflucan 150 mg oral tablet 1 tablet = 150 mg, By Mouth, Once, # 1 tablet, 0 Refills, Soft Stop, 10/16/22 11:47:00 EDT, [facility][id number], Partial fill upon patient request if the [...] Team Personnel Name: Lulu Latif MD Position: [facility] Physician - Primary Care Member Role: PCP Address: Address: [address] [place], [place] [address] [place] [address]- Care Team Related Persons Name: MARILY BARNETT Address: home [address] [place] [address] Name: BELKYS HARRIS Address: home [facility]
--- OUTSIDE RECORDS SUMMARY | 2022-11-16 08:01 | XMS_ITS | Continuity of Care Document ---
Author Name Unknown Organization [facility] Address [address] [place] [address]- Care Team Providers Care Dyeing Machine Feeder Name Role Phone Lulu Latif MD Primary Care Physician Encounter [facility] Date(s): 10/16/22 - 10/23/22 [facility] [address] [place] [address]- Attending Physician: Lulu Latif MD Allergies, Adverse Reactions, Alerts No Known Medication Allergies Medications Diflucan 150 mg oral tablet 1 tablet = 150 mg, By Mouth, Once, # 1 tablet, 0 Refills, Soft Stop, 10/16/22 11:47:00 EDT, [id number], Partial fill upon patient request if the prescription is for a schedule II opioid drug., 180, cm, 10/16/22 11:36:00 EDT, Height, 1... Start Date: 10/16/22 Status: Ordered Problem List Condition Confirmation Course Effective Dates Status Health St atus Informant Female stress incontinence Confirmed Active Severe obesity Confirmed Active Vitamin D deficiency Confirmed Active Vital Signs Most recent to oldest [Reference Range]: 1 Height 180 cm (10/16/22 11:36 AM) Weight 129.7 kg (10/16/22 11:36 AM) Pulse Rate [55-90 bpm] 78 bpm (10/16/22 11:36 AM) Body Mass Index [18.5-24.99 kg/m2] 40.03 kg/m2 *>HHI* (10/16/22 11:36 AM) Blood Pressure [90-138/55-84 mm Hg] 114/ 64mm Hg (10/16/22 11:36 AM) Temperature [96.8-100.4 DegF] 97.2 DegF (10/16/22 11:36 AM) Liters per Minute 0 L/min (10/16/22 11:36 AM) Mode of Delivery (Oxygen) Room air (10/16/22 11:36 AM) Blood pressure sites Arm, left (10/16/22 11:36 AM) Temperature Route Temporal (10/16/22 11:36 AM) Weight Obtained Via Standing scale (10/16/22 11:36 AM) Social History Social History Type Response Smoking Status Former smoker, quit more than 30 days ago entered on: 01/01/22 Sex Note * Lori Burk: PERFORM, SIGN, VERIFY Event Display: Patient Education/Instruction Authored Date: [id number] [facility] *BMP Quab Adlt Med Bltn Clinical Summary Name NERY KING Age 47 Years 1975 PCP Salomon HITCHCOCK, Lulu Tsang PCP Visit Date 10/16/2022 11:30:00 Additional Instructions: Scheduled Appointments?? Future Appointments ?*BMP??Quab??Adlt??Med??Bltn ?[address],??[place],??[address] ?Phone:??--?Fax:??-- ?Appt. Date:??01/06/2023?9:00 AM ?Scheduled Provider:??Lulu Latif MD Follow-Up Instructions ?? Diagnosis Medications: Please continue your medications until treatment is completed or stopped by your provider. Discuss any questions related to medications with your provider. New Medications [facility][id number], [address] [place], [place] [id number], [phone] Fluconazole (Diflucan 150 mg oral tablet) 1 tab(s) Oral once. Refills: 0. Next Dose: Allergy Info:?? No Known Medication Allergies Medications Given This Visit Future Orders ?Vaginosis Vaginitis Panel (BV, CV/TV)? Order Date:10/16/22?- Complete on or after?10/16/22 ?Vaginal Culture w/ Gram Smear? Order Date:10/16/22?- Complete on or after?10/16/22 Vital Signs Height 180 cm Weight 129.7 kg BMI 40.03 kg/m2 Blood Pressure 114 mm Hg/64 mm Hg Temperature 97.2 DegF Pulse Rate 78 bpm Respiratory Rate 02 Sat Mode of Delivery /Room air You can now view a summary of your hospital visit from the comfort of your home through a free online portal called [employer]. [employer] is a website that allows you to securely view your medical information including discharge summary, medications and follow-up visits. ??You can alsosend a secure electronic message to your doctor???s office to request appointments, renew medications or just ask a question. You can enroll at [email or web address] or register during your next office [...] primary care provider, you may find a [facility] provider by calling [facility] [employer] Link at [phone]. [facility], in keeping with [facility] guidance, no longer requires face masks for staff, patientsor visitors in most situations. Similar to time spent indoors at other locations, there is the chance that you were exposed to respiratory viruses during your time with us (such as flu or COVID-19).? If you develop symptoms concerning for a viral respiratory infection, please seek testing (and treatment if indicated) from your medical provider or home test kit. For information about the plan of care including goals and instructions for your diagnosis, please see the patient education orders section of this document. Patient Education Materials?? The content of this educational material or handout may have been modified, supplemented, or adapted from its original content and format to support your individualized medical care. Patient Care team information Care Team Personnel Name: Salomon HITCHCOCK, Lulu Tsang Position: S Physician - Primary Care Member Role: PCP Address: Address: [address] [place] [address] [place] [address]- Care Team Related Persons Name: MARILY BARNETT Address: [address] [address] Name: BELKYS HARRIS Address: home [facility]
--- OUTSIDE RECORDS SUMMARY | 2022-11-16 08:01 | XMS_ITS | Continuity of Care Document ---
Author Name Unknown Organization [facility] Address [address] [place] [address], [address] [place] [address]- Care Team Providers Care Older Worker Specialist Name Role Phone Lulu Latif MD Primary Care Physician [id number] Date[facility] 04/22/22 - 07/08/22 [facility] Toni Bass's [facility] [address] [facility], [address] [place] [address]- us Attending Physician: Drea Harrell MD Admitting Physician: Drea Harrell MD Referring Physician: Lulu Latif MD Allergies, Adverse Reactions, Alerts No Known Medication Allergies Medications NuLYTELY with Flavor Packs oral powder for reconstitution See Instructions, split prep method. drink one half the night before procedure at 5pm. drink secondhalf six hours prior to procedure., # 4,000 mL, 0 Refills, Maintenance, 06/22/22 17:00:00 EDT, [facility] #[id number], test date, split prep metho... Start Date: [...] Latif MD Position: [facility] Physician - Primary Care Member Role: PCP Address: Address: [address] [place] [address] [place] [address]- Care Team Related Persons Name: MARILY BARNETT Address: home [address] [place] [id number] Name: BELKYS HARRIS
--- OUTSIDE RECORDS SUMMARY | 2022-11-16 08:01 | XMS_ITS | Continuity of Care Document ---
Author Name Unknown Organization [facility] Address [address] [place] [address]- Care Team Providers Care Inspector Rag Sorting Name Role Phone Lulu Latif MD Primary Care Phys[id number] Date[facility] 08/11/22 - 10/02/22 [facility] [address] [place] [address]- Attending Physician: Lulu Latif MD Allergies, Adverse [...] Team Personnel Name: Lulu Latif MD Position: [facility] Physician - Primary Care Member Role: PCP Address: Address: [address] [place] [address] [place] [address]- Care Team Related Persons Name: MARILY BARNETT Address: home [address] [place] [id number] Name: BELKYS HARRIS Address: [facility]
--- OUTSIDE RECORDS SUMMARY | 2022-11-16 08:01 | XMS_ITS | Continuity of Care Document ---
Author Name Unknown Organization [facility] Address [address] [place] [address]- Care Team Providers Care Powder Nipper Name Role Phone Lulu Latif MD Primary Care Physician Encounter [facility] Date(s): 01/01/22 - 01/08/22 [facility] [address] [place] [address]- Attending Physician: Lulu Latif MD Allergies, Adverse Reactions, Alerts No Known Medication Allergies Problem List Condition Confirmation Course Effective Dates Status Health St atus Informant Female stress incontinence Confirmed Active Obese class II Confirmed Active Vitamin D deficiency Confirmed Active Procedures Procedure Date Related Diagnosis Body Site Status Cholecystectomy Completed Vital Signs Most recent to oldest [Reference Range]: 1 Height 179.6 cm (01/01/22 9:13 AM) Weight 125.7 kg (01/01/22 9:13 AM) Pulse Rate [55-90 bpm] 76 bpm (01/01/22 9:13 AM) Body Mass Index [18.5-24.99 kg/m2] 38.97 kg/m2 *>HHI* (01/01/22 9:13 AM) Blood Pressure [90-138/55-84 mm Hg] 122/ 82mm Hg (01/01/22 9:13 AM) Temperature [96.8-100.4 DegF] 97.3 DegF (01/01/22 9:13 AM) Liters per Minute 0 L/min (01/01/22 9:13 AM) Mode of Delivery (Oxygen) Room air (01/01/22 9:13 AM) Blood pressure sites Arm, right (01/01/22 9:13 AM) Temperature Route Temporal (01/01/22 9:13 AM) Weight Obtained Via Standing scale (01/01/22 9:13 AM) Social History Social History Type Response Smoking Status Former smoker, quit more than 30 days ago entered on: 01/01/22 Sex Note * Lori Burk: PERFORM, SIGN, VERIFY Event Display: Patient Education/Instruction Authored Date: [id number] [facility] *FARAZ Qu Adlt Med Bltn Clinical Summary Name NERY KING Age 46 Years 1975 PCP Salomon HITCHCOCK, Lulu Tsang PCP Visit Date 01/01/2022 09:02:00 Additional Instructions: Scheduled Appointments?? Future Appointments ?No Future Appointments Scheduled Follow-Up Instructions ?? Diagnosis Medications: Please continue your medications until treatment is completed or stopped by your provider. Discuss any questions related to medications with your provider. Allergy Info:?? No Known Medication Allergies Medications Given This Visit Future Orders ?Vitamin D 25 Hydroxy Level? Order Date:01/01/22?- Complete on or after?01/01/22 ?MM Digital Mammo Screening? Order Date:01/01/22?- Complete on or after?01/01/22 ?Comprehensive Metabolic Panel? Order Date:01/01/22?- Complete on or after?01/01/22 ?Lipid Panel? Order Date:01/01/22?- Complete on or after?01/01/22 ?CBC? Order Date:01/01/22?- Complete on or after?01/01/22 ?TSH? Order Date:01/01/22?- Complete on or after?01/01/22 ?Hepatitis C Ab? Order Date:01/01/22?- Complete on or after?01/01/22 Vital Signs Height 179.6 cm Weight 125.7 kg BMI 38.97 kg/m2 Blood Pressure 122 mm Hg/82 mm Hg Temperature 97.3 DegF Pulse Rate 76 bpm Respiratory Rate 02 Sat Mode of Delivery /Room air You can now view a summary of your hospital visit from the comfort of your home through a free online portal called [employer]. [employer] is a website that allows you to securely view your medical information including discharge summary, medications and follow-up visits. ??You can alsosend a secure electronic message to your doctor???s office to request appointments, renew medications or just ask a question. You can enroll at [email or web address] or register during your next office visit. [...] primary care provider, you may find a [facility] provider by calling [facility] [employer] Link at [phone]. For information about the plan of care [...] Personnel Name: Lulu Latif MD Position: S Primary Care Physician Member Role: PCP Address: Address: [address] [place] [address] [place] [address]- Care Team Related Persons Name: MARILY BARNETT Address: home [address] [place] [id number] Name: BELKYS HARRIS
--- OUTSIDE RECORDS SUMMARY | 2022-11-16 08:01 | XMS_ITS | Continuity of Care Document ---
Author Name Unknown Organization [facility] Donny n[facility] Address [address] [place] [address], [address] [address]- Care Team Providers Care Meeting Planner Name Role Phone Salomon HITCHCOCK, Lulu Tsang Primary [facility] Phys[id number] Date(s): 06/08/22 - 07/08/22 [employer] Toni Kim[facility] [address] [facility], [address] [place] [address]- Attending Physician: Adriano Gomez Admitting Physician: Adriano Gomez Referring Physician: AdmtrAdriano Allergies, Adverse Reactions, Alerts No Known Medication Allergies Medications NuLYTELY with Flavor Packs oral powder for reconstitution See Instructions, split prep method. drink one half the night before procedure at 5pm. drink secondhalf six hours prior to procedure., # 4,000 mL, 0 Refills, Maintenance, 06/22/22 17:00:00 EDT, [id number], test date, split prep metho... Start Date: [...] Primary Care Member Role: PCP Address: Address: [address] [place] [address] [place] [address]- Care Team Related Persons Name: MRAILY BARNETT Address: home [address] [place] [address] Name: BELKYS HARRIS
--- OUTSIDE RECORDS SUMMARY | 2022-11-16 08:01 | XMS_ITS | Continuity of Care Document ---
Author Name Unknown Organization [facility] Toni Hines [facility] Address [address] [facility], [place], [place] [address]- Care Team Providers Care Foot Caster Name Role Phone Lulu Latif MD [id number] Date(s): 06/08/22 - 08/26/22 [facility] Toni Bass's [facility] [address] [facility], [address] [place] [address]- Attending Physician: Drea Harrell MD Admitting Physician: [...] Primary Care Member Role: PCP Address: Address: [address] [place] [address] [place] [address]- Care Team Related Persons Name: MARILY BARNETT Address: home [address] [place] [address] Name: BELKYS HARRIS Address: home [facility]
--- OUTSIDE RECORDS SUMMARY | 2022-11-16 08:01 | XMS_ITS | Continuity of Care Document ---
Author Name Unknown Organization [facility] Address [address] [place] [address]- Care Team Providers Care Electric Motor Repair Supervisor Name Role Phone Lulu Latif MD Primary Care Physician [phone] [id number] Date(s): 02/26/22 - 03/05/[address] [facility] [address] [place] [address]- Attending Physician: Lulu Latif MD Allergies, Adverse Reactions, Alerts No Known Medication Allergies Medications NuLYTELY with Flavor Packs oral powder for reconstitution See Instructions, split prep method. drink one half the night before procedure at 5pm. drink secondhalf six hours prior to procedure., # 4,000 mL, 0 Refills, Maintenance, 06/22/22 17:00:00 EDT, [id number], test date, split prep metho... Start Date: 06/22/22 Status: Ordered Problem List Condition Confirmation Course Effective Dates Status Health St atus Informant Female stress incontinence Confirmed Active Obese class II Confirmed Active Vitamin D deficiency Confirmed Active Vital Signs Most recent to oldest [Reference Range]: 1 Height 179.6 cm (02/26/22 8:45 AM) Oxygen Saturation [94-100 %] 99 % (02/26/22 8:45 AM) Pulse Rate [55-90 bpm] 83 bpm (02/26/22 8:45 AM) Blood Pressure [90-138/55-84 mm Hg] 126/ 74mm Hg (02/26/22 8:45 AM) Temperature [96.8-100.4 DegF] 97.4 DegF (02/26/22 8:45 AM) Liters per Minute 0 L/min (02/26/22 8:45 AM) Mode of Delivery (Oxygen) Room air (02/26/22 8:45 AM) Blood pressure sites Arm, left (02/26/22 8:45 AM) Temperature Route Temporal (02/26/22 8:45 AM) Social History Social History Type Response Smoking Status Former smoker, quit more than 30 days ago entered on: 01/01/22 Sex Note * Lori Burk: PERFORM, SIGN, VERIFY Event Display: Patient Education/Instruction Authored Date: [id number] [facility] *BMP Quab Adlt Med Bltn Clinical Summary Name NERY KING Age 46 Years 1975 PCP Salomon HITCHCOCK, Lulu Tsang PCP Visit Date 02/26/2022 08:39:00 Additional Instructions: Scheduled Appointments?? Future Appointments ?*[facility] ?[address]??[place],??[place],??[address] ?Phone:??--?Fax:??-- ?Appt. Date:??04/22/2022?10:00 AM ?Scheduled Provider:??Ptety Mary CNM [facility] ?[address]??[place],??[place],??[address] ?Phone:??[phone]?Fax:??-- ?Appt. Date:??06/23/2022?3:30 PM ?Scheduled Provider:??[id number] Follow-Up Instructions ?? With: Address: When: Lulu Latif , only if needed Diagnosis Pain in right knee Medications: Please continue your medications until treatment is completed or stopped by your provider. Discuss any questions related to medications with your provider. Medications to Continue with No Changes These medications were not printed or sent to your pharmacy PEG Electrolyte Solution (NuLYTELY with Flavor Packs oral powder for reconstitution) split prep method. drink one half the night before procedure at 5pm. drink second half six hours prior to procedure.. Refills: 0. Next Dose: Allergy Info:?? No Known Medication Allergies Medications Given This Visit Future Orders ?No future orders Vital Signs Height 179.6 cm Weight BMI Blood Pressure 126 mm Hg/74 mm Hg Temperature 97.4 DegF Pulse Rate 83 bpm Respiratory Rate 02 Sat Mode of Delivery 99 %/Room air You can now view a summary of your hospital visit from the comfort of your home through a free online portal called [employer]. [employer] is a website that allows you to securely view your medical information including discharge summary, medications and follow-up visits. ??You can alsosend a secure electronic message to your doctor???s office to request appointments, renew medications or just ask a question. You can enroll at [email or web address] or register during your next office visit. [...] primary care provider, you may find a [facility] provider by calling [facility] [employer] at [phone]. For information about the plan of care [...] Team Personnel Name: Lulu Latif MD Position: [facility] Primary Care Physician Member Role: PCP Address: Address: [address] [place] [address] [place] [address]- Care Team Related Persons Name: MARILY BARNETT Address: [address] [address] Name: BELKYS HARRIS
--- OUTSIDE RECORDS SUMMARY | 2022-11-16 08:01 | XMS_ITS | Continuity of Care Document ---
Author Name Unknown Organization [facility] ter Address [address] [place] [id number]- Care Team Providers Care Javascript Web Developer Name Role Phone Salomon HITCHCOCK, Lulu Tsang Primary Care Physician Encounter [facility] [place] ACCT R [id number] Date(s): 08/07/22 - 08/07/[address] [address]- Encounter Diagnosis Headache(Final) - 08/07/22 Discharge Disposition: A-D/C Home Attending Physician: Rosalina Sutton MD Admitting Physician: Rosalina Sutton MD Referring Physician: Not on Staff, Referring MD Allergies, Adverse Reactions, Alerts No Known Medication Allergies Medications NuLYTELY with Flavor Packs oral powder for reconstitution See Instructions, split prep method. drink one half the night before procedure at 5pm. drink secondhalf six hours prior to procedure., # 4,000 mL, 0 Refills, Maintenance, 06/22/22 17:00:00 EDT, [id number], test date, split prep metho... Start Date: 06/22/22 Status: Ordered Problem List Condition Confirmation Course Effective Dates Status [facility] atus Informant Female stress incontinence Confirmed Active Severe obesity Confirmed Active Vitamin D deficiency Confirmed Active Results Radiology Reports * Exam Date Time Procedure Performing Provider Status 08/07/22 12:24 PM Chest 2 Views Frontal and Lat Lexx Pulido (Verified) Notes: (Chest 2 Views Frontal and Lat) Reason For Exam: TIA, C/Q CHF;Other: RESULT: Chest 2 Views Frontal and Lat Chest 2 Views Frontal and Lat Hx of Present Illness: EDMONDSON; Reason: TIA, CHF; COMPARISON: None. FINDINGS: LINES AND TUBES: None. LUNGS AND PLEURA: Clear lungs. Normal pulmonary vascularity. No pleural effusion. No pneumothorax. HEART, MEDIASTINUM AND WALKER: Heart is normal in size. Normal mediastinal and hilar contour. BONES AND SOFT TISSUES: No acute abnormality. IMPRESSION: No acute abnormality. WSN: [id number] Ordering Physician: Rosalina Sutton Dictated By: Darrell Wolf MD Dictated Date/Time: 08/07/22 1:03 pm Reviewed By: Darrell Wolf MD Signed By: Darrell Wolf MD Signed Date/Time: 08/07/22 1:03 pm Transcribed By: KANNAN Transcribed Date/Time: 08/07/22 1:00 pm * Exam Date Time Procedure Performing Provider Status 08/07/22 12:[address] Angio Neck Sri Dean; Auth ( Verified) Notes: (CT Angio Neck) Reason For Exam: Aneurysm, neck vessel(s);Other: RESULT: CT Angio Neck CT Angio Head, CT Angio Neck Hx of Present Illness: EDMONDSON; Reason: Other:; Transient ischemic attack (TIA); Clinical Question(s): Other:; Hematoma Aneurysm / Other: TECHNIQUE: CT angiogram of the head and neck was performed after bolus administration of intravenous contrast. 100 mL of Omnipaque 300 was administered intravenously. Coronal and sagittal MIP reformatted images were obtained. Additional 3-D images were created on a separate workstation under concurrent supervision by the attending radiologist. All stenoses are measured using NASCET criteria. Weight-based protocol using automatic tube modulation was used to optimize exposure parameters. RADIATION DOSE PARAMETERS: CTDIvol Body: 14.67 mGy, DLP Body: 685 mGy*cm. CTDIvol Head: 45.70 mGy, DLP Head: 773 mGy*cm. COMPARISON: Noncontrast CT head performed concurrently. FINDINGS: CTA OF THE NECK: Arch: There is a two vessel aortic arch, with common origin of the brachiocephalic artery and left common carotid artery. The origins of the supra aortic vessels are patent. Right carotid system: The common carotid and cervical internal carotid arteries are patent. No stenosis (0%) by NASCET criteria. Left carotid system: The common carotid and cervical internal carotid arteries are patent. No stenosis (0%) by NASCET criteria. Right vertebral: Patent. Left vertebral: Patent. Other: Soft tissues and bones: No evidence of lymphadenopathy or mass. The thyroid is unremarkable. Visualized lung apices are clear. No acute bony abnormality. CTA OF THE HEAD: Anterior circulation: Bilateral intracranial ICAs and their BRAULIO and MCA branches are patent. Focal left ICA calcification. Posterior circulation: Bilateral intracranial vertebral arteries, the basilar artery, and bilateralsuperior cerebellar and posterior cerebral artery branches are patent. Veins: Major dural venous sinuses are patent. Other: Soft tissues and bones: No midline shift or effacement of the basal cisterns. No space-occupying hemorrhage. No territorial loss of rosas-white matter differentiation. Orbits are unremarkable. No acute bony abnormality. IMPRESSION: 1. No acute intracranial large vessel occlusion. 2. Unremarkable CTA of the neck. A preliminary report was issued to the RIS via [employer] 08/07/2022 at 1:07 PM. WSN: [id number] Ordering Physician: Rosalina Sutton Dictated By: Eliseo Merida MD Dictated Date/Time: 08/07/22 5:13 pm Reviewed By: Eliseo Merida MD Signed By: Eliseo Merida MD Signed Date/Time: 08/07/22 5:13 pm Transcribed By: KANNAN Transcribed Date/Time: 08/07/22 1:07 pm * Exam Date Time Procedure Performing Provider Status 08/07/22 12:[address] Angio Head Sri Dean; Auth ( Verified) Notes: (CT Angio Head) Reason For Exam: Transient ischemic attack (TIA);Other: RESULT: CT Angio Head CT Angio Head, CT Angio Neck Hx of Present Illness: EDMONDSON; Reason: Other:; Transient ischemic attack (TIA); Clinical Question(s): Other:; Hematoma Aneurysm / Other: TECHNIQUE: CT angiogram of the head and neck was performed after bolus administration of intravenous contrast. 100 mL of Omnipaque 300 was administered intravenously. Coronal and sagittal MIP reformatted images were obtained. Additional 3-D images were created on a separate workstation under concurrent supervision by the attending radiologist. All stenoses are measured using NASCET criteria. Weight-based protocol using automatic tube modulation was used to optimize exposure parameters. RADIATION DOSE PARAMETERS: CTDIvol Body: 14.67 mGy, DLP Body: 685 mGy*cm. CTDIvol Head: 45.70 mGy, DLP Head: 773 mGy*cm. COMPARISON: Noncontrast CT head performed concurrently. FINDINGS: CTA OF THE NECK: Arch: There is a two vessel aortic arch, with common origin of the brachiocephalic artery and left common carotid artery. The origins of the supra aortic vessels are patent. Right carotid system: The common carotid and cervical internal carotid arteries are patent. No stenosis (0%) by NASCET criteria. Left carotid system: The common carotid and cervical internal carotid arteries are patent. No stenosis (0%) by NASCET criteria. Right vertebral: Patent. Left vertebral: Patent. Other: Soft tissues and bones: No evidence of lymphadenopathy or mass. The thyroid is unremarkable. Visualized lung apices are clear. No acute bony abnormality. CTA OF THE HEAD: Anterior circulation: Bilateral intracranial ICAs and their BRAULIO and MCA branches are patent. Focal left ICA calcification. Posterior circulation: Bilateral intracranial vertebral arteries, the basilar artery, and bilateralsuperior cerebellar and posterior cerebral artery branches are patent. Veins: Major dural venous sinuses are patent. Other: Soft tissues and bones: No midline shift or effacement of the basal cisterns. No space-occupying hemorrhage. No territorial loss of rosas-white matter differentiation. Orbits are unremarkable. No acute bony abnormality. IMPRESSION: 1. No acute intracranial large vessel occlusion. 2. Unremarkable CTA of the neck. A preliminary report was issued to the [facility]IS via [employer] 08/07/2022 at 1:07 PM. WSN: [id number] Ordering Physician: Rosalina Sutton Dictated By: Eliseo Merida MD Dictated Date/Time: 08/07/22 5:13 pm Reviewed By: Eliseo Merida MD Signed By: Eliseo Merida MD Signed Date/Time: 08/07/22 5:13 pm Transcribed By: KANNAN Transcribed Date/Time: 08/07/22 1:07 pm * Exam Date Time Procedure Performing Provider Status 08/07/22 12:[address] Head/Brain W/O Contrast Jermaine , N icole; Auth (Verified) Notes: (CT Head/Brain W/O Contrast) Reason For Exam: Transient ischemic attack (TIA);Other: RESULT: CT Head/Brain W/O Contrast CT Head/Brain W/O Contrast CLINICAL INDICATION: Hx of Present Illness: EDMONDSON; Reason: Other:; Transient ischemic attack (TIA); Clinical Question(s): Other:; Hematoma Infarction. PRIOR EXAMS: None. TECHNIQUE: Head CT was performed without intravenous contrast, using axial technique and reconstructed in axial and coronal plane. Iterative reconstruction techniques are used to optimize dose and image quality. CTDIvol Head: 45.70 mGy, DLP Head: 773 mGy*cm. FINDINGS: BRAIN: There is no infarct. There is no intracerebral hemorrhage. There is no mass. VENTRICLES, SULCI, AND CISTERNS: The ventricles and sulci are symmetrical and normal. WHITE MATTER: No white matter abnormality. EXTRA AXIAL SPACES: There is no abnormal epidural, subdural, or subarachnoid blood or fluid. SKULL: There is no skull fracture.. PARANASAL SINUSES: Clear. TEMPORAL BONES: The mastoid air cells are clear, as are the middle ear cavities. IMPRESSION: 1. No acute intracranial abnormality. 2. No skull fracture. WSN: [id number] Ordering Physician: Rosalina Sutton Dictated By: Ousmane Crockett MD Dictated Date/Time: 08/07/22 1:00 pm Reviewed By: Ousmane Crockett MD Signed By: Ousmane Crockett MD Signed Date/Time: 08/07/22 1:00 pm Transcribed By: KANNAN Transcribed Date/Time: 08/07/22 12:58 pm Vital Signs Most recent to oldest [Reference Range]: 1 2 3 Height 180 cm (08/07/22 3:19 PM) 180 cm (08/07/22 1:09 PM) 180 cm (08/07/22 8:04 AM) Oxygen Saturation [94-100 %] 100 % (08/07/22 3:19 PM) 100 % (08/07/22 1:09 PM) 98 % (08/07/22 10:19 AM) Pulse Rate [55-90 bpm] 62 bpm (08/07/22 3:19 PM) 58 bpm (08/07/22 1:09 PM) 57 bpm (08/07/22 10:19 AM) Blood Pressure [90-138/55-84 mm Hg] 138/86mm Hg (08/07/22 3:19 PM) 137/87mm Hg (08/07/22 1:09 PM) 126/86mm Hg (08/07/22 10:19 AM) Respiratory Rate [16-30 br/min] 16 br/min (08/07/22 3:19 PM) 16 br/min (08/07/22 1:09 PM) Temperature [96.8-100.4 DegF] 98.6 DegF (08/07/22 3:19 PM) 97.7 DegF (08/07/22 10:19 AM) 98.4 DegF (08/07/22 7:46 AM) Mode of Delivery (Oxygen) Room air (08/07/22 3:19 PM) Room air (08/07/22 1:09 PM) Room air (08/07/22 10:19 AM) Blood pressure sites Arm, right (08/07/22 3:19 PM) Arm, right (08/07/22 1:09 PM) Arm, right (08/07/22 10:19 AM) Temperature Route Oral (08/07/22 3:19 PM) Oral (08/07/22 10:19 AM) Oral (08/07/22 7:46 AM) Dry Weight 129 kg (08/07/22 3:19 PM) 129 kg (08/07/22 1:09 PM) 129 kg (08/07/22 8:04 AM) Weight Obtained Via Patient/family state d (08/07/22 7:46 AM) Dry Weight Obtained Via Patient/family s tated (08/07/22 7:46 AM) Social History Social History Type Response Smoking Status Former smoker, quit more than 30 days ago entered on: 01/01/22 Sex Note * Billie Steele NP: PERFORM Event Display: Patient Education Leaflets Authored Date: [id number] Headache, Unspecified ?? [id number] Headache, Unspecified A number of things can cause headaches. The cause of your headache isn???t clear. But it doesn???t seem to be a sign of any serious illness. Headache affects almost everyone at some time. It's the most common reason people miss days from work or school. A physical and nervous system exam can help rule out any serious causes of headache. Sometimes you may need more testing. This could include blood work or imaging tests of the head, such as a CAT scan or MRI. You could have a tension headache or a migraine headache. Stress can cause a tension headache. This can happen if you tense the muscles of your shoulders, neck, and scalp without knowing it. If this stress lasts long enough, you may develop a tension headache. It's not clear why migraines occur, but certain things called triggers can raise the risk of havinga migraine attack. Migraine triggers may include emotional stress or depression, or by hormone changes during the menstrual cycle. Other triggers include control pills and other medicines, alcohol or caffeine, foods with tyramine, such as aged cheese or wine, eyestrain, weather changes, missed meals, and lack of sleep or oversleeping. Other causes of headache include: ??? Viral illness with high fever ??? Head injury with concussion ??? Sinus, ear, or throat infection ??? Dental pain and jaw joint (TMJ) pain More serious but less common causes of headache include stroke, brain hemorrhage, brain tumor, meningitis, and encephalitis. Home care Follow these tips when taking care of yourself at home: ??? Don???t drive yourself home if you weregiven pain medicine for your headache. Instead, have someone else drive you home. Try to sleep whenyou get home. You should feel much better when you wake up. ??? Apply heat to the back of your neckto ease a neck muscle spasm. Take care of a migraine headache by putting an ice pack on your forehead or at the base of your skull. ??? If you have nausea or vomiting, eat a light diet until your headache eases. ??? If you have a migraine headache, use sunglasses when in the daylight or around bright indoor lighting until your symptoms get better. Bright glaring light can make this type of headache worse. ?? Follow-up care Follow up with your healthcare provider, or as advised. Talk with your provider if you have frequent headaches. They can help figure out a treatment plan. By knowing the earliest signs of headache, and starting treatment right away, you may be able to stop the pain yourself. ?? When to get medical advice Call your healthcare provider right away??if any of the following occur: ??? Your head pain suddenly gets worse after sexual intercourse or strenuous activity ??? Your head pain doesn???t get better within 24 hours ??? You have new symptoms ??? You aren???t able to keep liquids down (repeated vomiting) ??? Fever of 100.4??F (38??C) or higher, or as directed by your healthcare provider ??? Stiff neck ??? Extreme drowsiness, confusion, or fainting ??? Dizziness or dizziness with spinning sensation (vertigo) ??? Weakness in an arm or leg or one side of your face ??? You have trouble talking or seeing ?? Last Reviewed Date: 2022 ?? [id number] [employer]. All rights reserved. This information is not intended as a substitute for professional medical care. Always follow your healthcare professional's instructions. ?? Patient Care team information Care Team Personnel Name: Lulu Latif MD Position: [facility] Physician - Primary Care Member Role: PCP Address: Address: [address] [place] [address] [place] [address]- [place] Name: Herman HITCHCOCK, Rosalina Bell Position: [facility] ED Medicine MD Member Role: Admitting Physician Address: Address: [address] [place] [address]- [place] Name: Jasmin Iyer RN Position: [facility] ED RN W/OE and Tasks Member Role: Patient Care Provider Name: Devendra Babcock Position: [facility] ED TA [facility] Member Role: Bookkeeping Clerk Name: Billie Steele NP Position: [facility] Associate Professional Member Role: ED Physician Sales Representative [employer] Address: Address: [address] [place] [address] [place] [address]- Care Team Related Persons Name: MARILY BARNETT Address: home [address] [place] [id number] Name: BELKYS HARRIS Address: [facility]
--- OUTSIDE RECORDS SUMMARY | 2022-11-16 08:01 | XMS_ITS | Continuity of Care Document ---
Author Name Unknown Organization [facility] ter Address [address] [place] [address]- Care Team Providers Care Returned Telephone Equipment Appraiser Name Role Phone Lulu Latif MD Primary Care Physician [phone] Encounter [facility] [place] ACCT R [id number] Date(s): 01/02/22 - 06/13/[address] [address]- [place] Attending Physician: Jimmy HITCHCOCK, Ariela Admitting Physician: Ariela Marquez MD Allergies, Adverse Reactions, Alerts No Known Medication Allergies Medications NuLYTELY with Flavor Packs oral powder for reconstitution See Instructions, split prep method. drink one half the night before procedure at 5pm. drink secondhalf six hours prior to procedure., # 4,000 mL, 0 Refills, Maintenance, 06/22/22 17:00:00 EDT, [facility] #[id number], test date, split prep metho... Start Date: [...] Latif MD Position: [facility] Primary Care Physician Member Role: PCP Address: Address: [address] [place] [address] [place] [address]- Care Team Related Persons Name: MARILY BARNETT Address: home [address] [place] [address] Name: BELKYS HARRIS
--- OUTSIDE RECORDS SUMMARY | 2022-11-16 08:01 | XMS_ITS | Continuity of Care Document ---
Author Name Unknown Organization [facility] Address [address], [address] [address]- Care Team Providers Care Herbarium Curator Name Role Phone Lulu Latif MD Primary Care Physician [phone] Encounter [facility] [place] Date(s): 07/27/22 - 08/26/22 [facility] [address], [address] [place] [address]- Attending Physician: AdmAdriano lieberman Admitting Physician: AdmtrAdriano Referring Physician: Admtr, Ar8 Allergies, Adverse Reactions, Alerts No Known Medication [...] Primary Care Member Role: PCP Address: Address: [address] [place] [address] [place], [place] [address] Care Team Related Persons Name: MARILY BARNETT Address: home [address] [place] [address] Name: BELKYS HARRIS Address: home [facility]
[2022-11-16 08:11] VITALS: BMI 38.1
== END 2022-11-16 08:19 | disposition home or self-care (01) ==
LOC: HO.HBS 07:58
PROVIDERS: PCP Family Medicine; Visit Provider Surgery
DX: E66.9 Obesity, unspecified (principal); Z68.38 Body mass index [BMI] 38.0-38.9, adult
CPT/HCPCS: 99443

== ENCOUNTER → 2022-11-16 07:58 | Outpatient (BNVA) | payer BC, SELFPAY | PROVIDERS: PCP Family Medicine; Visit Provider Surgery ==

== ENCOUNTER → 2022-11-17 14:58 | Outpatient (BNVA) | payer BC, SELFPAY | PROVIDERS: PCP Family Medicine; Visit Provider Dietitian, Registered | DX: E66.9 Obesity, unspecified (principal); Z71.3 Dietary counseling and surveillance | CPT/HCPCS: 97802 ==

== ENCOUNTER → 2022-11-24 12:53 | Outpatient (REF) | payer BC, SELFPAY | LOC: HO.SL 12:53 | PROVIDERS: PCP Family Medicine; Visit Provider Surgery | DX: E66.01 Morbid (severe) obesity due to excess calories (principal); E78.5 Hyperlipidemia, unspecified; G47.10 Hypersomnia, unspecified | CPT/HCPCS: 95806 ==

== ENCOUNTER → 2022-11-24 13:14 | Outpatient (BNV) | payer BC, SELFPAY | PROVIDERS: PCP Family Medicine; Visit Provider Internal Medicine | DX: G47.33 Obstructive sleep apnea (adult) (pediatric) (principal) | CPT/HCPCS: 95806 ==

== ENCOUNTER 2022-12-01 09:46 | Outpatient (AMB) | payer BC, SELFPAY ==
--- NOTE | 2022-12-01 14:57 | MHC.WMTHER ---
Intake Intake Visit Reasons: VIDEO BH F/U Allergies No Known Allergies [No Known Allergies*] Allergy (Verified 10/23/22 08:49) [facility] Medical History (Updated 12/01/22 @ 15:41 by Debbie Hernandez) Hypersomnolence Hyperlipidemia Diverticulitis DJD (degenerative joint disease) Morbid obesity Surgical History (Updated 09/29/22 @ 09:06 by Veronique Arboleda STEAM PRESSER) Hx of tubal ligation Hx of cholecystectomy Social History (Updated 09/29/22 @ 09:06 by Veronique Arboleda CMA) Alcohol intake: current Alcohol intake frequency: a few times a week Patient Tobacco Use Status: Never used Tobacco Behavioral Health Assessment Weight Management Therapy Therapy Notes Details Pt reported doing well. She discussed the four interviews she had and was proud of herself for not crying during any of them. She stated that she does not think about her past. Often has feelings of being less than or not good enough because she does not have a college degree like most in her position. Patient stated that she is looking to have weight loss surgery to help improve her health and quality of life. She has no history of inpatient psychiatric admissions, history of problems with drugs or alcohol and no eating disorder diagnosis. Pt reported that she has struggles with anxiety struggles (insecurity and self esteem as well) and was seeing a therapist more than 7 years ago. She does not take medication for anxiety but has in the past as needed (Lorazepam). Also stress due to toxic relationship. Presenting Concerns Referral Source provider Reason for referral weight loss surgery evaluation Precipitating Event obesity Living Situation Current Living Situation Own At risk of losing current housing? No Satisfied with current living situation? Yes Comments Pt lives with her two dogs and her fiance. Food/Weight/Diet Expectations of change weight loss and maintenance History/Relationship with weight . She reported being 220lbs when she met her partner 7 years ago. Also quit smoking 4 years ago which caused weight gain. She reported being very thin until age 18 and then reached her heaviest after being out on control implant. She had her daughter at 15 years old. History/Relationship with dieting exercise, eating healthy Social History Family history and relationship Pt has two adult children ages 31 and 26 and two grandchildren. She has been with partner for 7 years. Pt stated that she was born in [place] and raised in this area by her mother and stepfather and two younger brothers. Her mother at age 59 years from drug addiction and HIV. Her biological father came into her life at age 15 and passed a few years ago. Parental/Familial general house worker obligations none currently Developmental history and status none Cultural/Ethnic information Legal Involvement and History Current or historical involvement with the legal system? none known Education Highest grade completed college Preferred learning style Auditory, Verbal, Written, Learn by doing and Visual Currently enrolled in educational program? No Interested in further educational program? 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 No Meaningful activities walking her dogs Financial Situation Describe current financial situation Comfortable Financial assistance? None Service Service? No Mental Health and Addiction Treatment Current/Past substance abuse? No Current/Past addictive behavior concerns? No Medical and Physical Health Summary Physical exam in the last year? Yes Pain Screening Current pain? No Pain in the last few months? No Medications Is the patient compliant with medications? Yes Does the patient have Calix Guardian in place? Not applicable Does the patient use complimentary health approaches? No Trauma/Abuse History History of trauma? Yes Assessment & Plan Assessment & Plan (1) Complex posttraumatic stress disorder: Comment: R/O Code(s): F43.10 - Post-traumatic stress disorder, unspecified (2) Morbid obesity: Code(s): E66.01 - Morbid (severe) obesity due to excess calories Plan Patient was tearful when talking about her history and often struggles with any triggers that remind her. She can cry often and very easily that it embarrasses her. She is doing well in the program and is interested in additional therapeutic support. Patient is cleared for surgery when ready. Today patient was stable, distracted a bit and did not seem open to therapeutic interventions. Telehealth Telehealth Location of provider rendering services: other Location of patient: other (car, alone, [place] ) Patient Identification confirmed using: Name, : Yes Telehealth method: video Patient verbally consented to treatment: Yes Patient verbally consented to billing insurance company: Yes Patient informed of any privacy concerns related to visit: Yes Minutes spent on Phone/Video with Pt.: 30 Coding Level of Care Code Tele Psytx 30 mins (89765) Diagnoses Complex posttraumatic stress disorder F43.10 Morbid obesity E66.01 Time Spent (min) 30
== END 2022-12-01 14:56 | disposition home or self-care (01) ==
LOC: HO.HBST 09:46
PROVIDERS: PCP Family Medicine; Visit Provider Counselor Mental Health
DX: F43.12 Post-traumatic stress disorder, chronic (principal); E66.09 Other obesity due to excess calories; Z68.38 Body mass index [BMI] 38.0-38.9, adult
CPT/HCPCS: 90832

== ENCOUNTER → 2022-12-01 09:46 | Outpatient (BNVA) | payer BC, SELFPAY | PROVIDERS: PCP Family Medicine; Visit Provider Counselor Mental Health ==

== ENCOUNTER 2022-12-03 08:44 | Outpatient (REF) | payer BC, SELFPAY ==
--- NOTE | ~2022-12-03 | US_ITS ---
EXAMINATION: US COMPLETE ABDOMEN WITH LIVER ELASTOGRAPHY CLINICAL INFORMATION: Morbid obesity. COMPARISON: None available. TECHNIQUE: Real-time imaging of the abdominal viscera. Noninvasive ultrasound liver fibrosis assessment is performed using Caden ElastPQ point quantification shear wave elastography (2D-SWE) with a C5-2 MHz transducer. Multiple elastography samples are obtained. FINDINGS: PANCREAS: Limited. The visualized pancreatic head and body are normal in appearance. The remainder of the pancreas is obscured from visualization by the overlying bowel gas. ABDOMINAL AORTA: The proximal, middle, and distal aortic segments are normal in caliber. INFERIOR VENA CAVA: Visualized portions are normal. LIVER: The liver demonstrates normal size, contour and mildly increased echogenicity. No focal lesion or intrahepatic biliary duct dilatation. The right lobe measures 15.2 cm in length. The left lobe measures 9.1 cm in length. Portal flow is towards the liver (hepatopetal). Shear wave liver elastography median stiffness is 1.66 m/s (reference: normal median stiffness is 1.3 m/s or less). IQR/median stiffness to assess sampling precision is 0.22 (reference: good quality data set is IQR/median stiffness of 0.15 or less). GALLBLADDER: Surgically absent. COMMON BILE DUCT: Normal in caliber measuring 0.5 cm in diameter. RIGHT KIDNEY: Normal. No hydronephrosis. No renal calculi or focal parenchymal lesions. The kidney measures 10.7 cm in maximum dimension. LEFT KIDNEY: Normal. No hydronephrosis. No renal calculi or focal parenchymal lesions. The kidney measures 11.8 cm in maximum dimension. SPLEEN: Normal. The spleen measures 11.1 cm in maximum dimension. FREE FLUID: None. US/US abdomen comp w elastography IMPRESSION: 1. There is mild generalized increase in hepatic echotexture, consistent with fatty infiltration or hepatocellular disease. Please correlate clinically. No focal hepatic mass or intrahepatic biliary dilatation is seen. 2. Liver elastography: Although measurements appear to rule out compensated advanced chronic liver disease, there is statistical variability of the sampling which decreases accuracy. 3. The gallbladder is surgically absent. 4. Technically limited ultrasound examination of the pancreas. REFERENCE: Society of Radiologists in Ultrasound Liver Stiffness Thresholds (2020): LIVER STIFFNESS THRESHOLDS: *Liver Stiffness equal or less than 1.3 m/s: High probability of being normal. *Liver Stiffness less than 1.7 m/s: In the absence of other known clinical signs, rules out compensated advanced chronic liver disease. *Liver Stiffness 1.7-2.1 m/s: Suggestive of compensated advanced chronic liver disease but need further test for confirmation. *Liver Stiffness over 2.1 m/s: Rules in compensated advanced chronic liver disease. *Liver Stiffness over 2.4 m/s: Suggestive of clinically significant portal hypertension. QUALITY OF DATA SET: *IQR/Median value equal or less than 0.15 implies a quality data set. *IQR/Median value over 0.15 implies a poor quality data set. SIGNIFICANT CHANGE FROM PRIOR EXAM: Significant change if liver stiffness measurement is 10% or greater from prior exam. OTHER CONSIDERATIONS: The stage of liver fibrosis may be overestimated in the setting of acute hepatitis, liver inflammation, elevated liver function tests, hepatic vascular congestion, obstructive cholestasis, non-fasting state, and infiltrative diseases such as amyloidosis and lymphoma. In some patients with NAFLD, the liver stiffness thresholds for compensated advanced chronic liver disease may be lower. In causes other than viral hepatitis and NAFLD, liver stiffness thresholds are not well established.
== END 2022-12-03 08:45 | disposition home or self-care (01) ==
LOC: HO.US 08:44
PROVIDERS: PCP Family Medicine; Visit Provider Surgery
DX: E66.01 Morbid (severe) obesity due to excess calories (principal); E78.5 Hyperlipidemia, unspecified; G47.10 Hypersomnia, unspecified
CPT/HCPCS: 76705; 76981

== ENCOUNTER 2022-12-25 08:25 | Outpatient (AMB) | payer BC, SELFPAY ==
--- NOTE | 2022-12-25 16:02 | A.OFFVIS_ITS ---
Intake VS Expanded 12/25/22 16:11 Height 5 ft 11 in Weight 265 lb 8 oz BMI 37.0 Body Fat % 48.3 Body Fat Mass 128.3 Fat Free Mass 137.3 Visceral Fat Rating 18 Body Water % 35.4 Body Water Mass 94 Basal Metabolic Rate/Score 1,912 Intake Visit Reasons: TV Follow Up SWL Allergies No Known Allergies [No Known Allergies*] Allergy (Verified 10/23/22 08:49) HPI TV Follow Up SWL HPI Details Start time: 4pm, End time: 4.20pm ?I spent 15 minutes speaking with the patient on the phone plus an additional 5 minutes reviewing and updating records for a total of 20 minutes HPI Comments History of Present Illness Details Overall weight loss: 21.2lbs, or 7.39% TBWL Is doing 2 Synthax 6 protein shakes (1/2 scoop in water each) and 2 Zone Perfect protein bars and one meal (10 forks of meat and 10 forks of vegetables or salad) Exercise: Gym doing elliptical or treadmill x2-3/wk PFSH Medical History (Updated 12/25/22 @ 16:15 by Alireza Hyde MD) Hypersomnolence Hyperlipidemia Diverticulitis DJD (degenerative joint disease) Morbid obesity Surgical History (Updated 09/29/22 @ 09:06 by Veronique Arboleda CMA) Hx of tubal ligation Hx of cholecystectomy Social History (Updated 09/29/22 @ 09:06 by Veronique Arboleda CMA) Alcohol intake: current Alcohol intake frequency: a few times a week Patient Tobacco Use Status: Never used Tobacco Assessment & Plan Assessment & Plan (1) Obesity: Code(s): E66.9 - Obesity, unspecified Plan: 1. Plan for lap sleeve gastrectomy including upper GI endoscopy. All tests has been completed and reviewed and the patient is cleared for the surgery. ?If diaphragmatic or ventral hernias are present at time of surgery, these will be repaired laparoscopically as well. Risks and complications were discussed in detail including possible conversion to an open procedure, anastomotic leak, bleeding requiring transfusion, small bowel obstruction, , DVT and pulmonary embolism, cardiac, or pulmonary complications, as extermination supervisor complications such as anastomotic ulcer, insufficient weight loss and vitamin deficiencies. I emphasized the importance of close follow-up, adherence to instructions and good communication. So far she has proven to be an excellent communicator and very compliant with all our directions accomplishing a great weight loss. I believe that she is an excellent candidate and she is ready. 2. Continue same nutritional plan of 2 Synthax 6 protein shakes (1/2 scoop in water each) and 2 Zone Perfect protein bars and one meal (10 forks of meat and 10 forks of vegetables or salad) 3. Exercise: Start home elliptical daily for 300 calories. Goal is to burn 2000 calories per week. 4. Continue to send weight measurements weekly on (2) BMI 37.0-37.9, adult: Code(s): Z68.37 - Body mass index [BMI] 37.0-37.9, adult Telehealth Telehealth Location of provider rendering services: practice address Location of patient: address on file Patient Identification confirmed using: Name, : Yes Telehealth method: voice only Patient verbally consented to treatment: Yes Patient verbally consented to billing insurance company: Yes Patient informed of any privacy concerns related to visit: Yes Minutes spent on Phone/Video with Pt.: 20 Coding Level of Care Code Tele Est Pt Level 3 (23817) Diagnoses Obesity E66.9 BMI 37.0-37.9, adult Z68.37 Time Spent (min) 20
[2022-12-25 16:11] VITALS: BMI 37.0
== END 2022-12-25 16:20 | disposition home or self-care (01) ==
LOC: HO.HBS 08:26
PROVIDERS: PCP Family Medicine; Visit Provider Surgery
DX: E66.9 Obesity, unspecified (principal); Z68.37 Body mass index [BMI] 37.0-37.9, adult
CPT/HCPCS: 99442

== ENCOUNTER → 2022-12-25 08:25 | Outpatient (BNVA) | payer BC, SELFPAY | PROVIDERS: PCP Family Medicine; Visit Provider Surgery ==

== ENCOUNTER 2023-01-01 07:49 | Outpatient (REF) | payer BC, SELFPAY ==
--- NOTE | ~2023-01-01 | FL_ITS ---
EXAMINATION: XR FLUOROSCOPY UPPER GI WITH AIR CLINICAL INFORMATION: Preop evaluation prior to bariatric surgery COMPARISON: None TECHNIQUE: Fluoroscopic air contrast upper GI examination was performed utilizing standard techniques with thin and thick barium and effervescent granules. Numerous spot images were obtained. FINDINGS: Dual and single contrast images of the esophagus demonstrate normal caliber, contour, and mucosal pattern. A Schatzki's ring is present. No masses, or ulcerations are identified. Esophageal peristalsis was normal. A small type I hiatal hernia is present. Gastroesophageal reflux is seen up to the level of the distal esophagus. Dual contrast and single contrast images of the stomach demonstrated normal contour and mucosal pattern without evidence of mass, ulceration, or other abnormality. Contrast freely passed into the gastric antrum and duodenal bulb without delay. Single and air-contrast images of the duodenal bulb demonstrate no abnormality. The duodenal sweep has a normal appearance, course, and mucosal fold appearance. The imaged proximal jejunum has a normal fold pattern and caliber. FLUOROSCOPY TIME: 3 minutes 3 seconds Number of Spot Images: 10 Number of Cine: 8 DOSE AREA PRODUCT: 2937 uGy-m2 (microgray-meter squared) FL/FL upper GI w air IMPRESSION: 1. Small type I hiatal hernia with associated Schatzki's ring 2. Mild gastroesophageal reflux This procedure was performed by Teo Cain PA-C, and supervised by Dr. Wong
== END 2023-01-01 07:50 | disposition home or self-care (01) ==
LOC: HO.XRAY 07:49
PROVIDERS: Visit Provider Surgery
DX: E66.01 Morbid (severe) obesity due to excess calories (principal); E78.5 Hyperlipidemia, unspecified
CPT/HCPCS: 74246

== ENCOUNTER → 2023-01-01 07:50 | Outpatient (BNV) | payer BC, SELFPAY | PROVIDERS: Visit Provider Radiology Diagnostic Radiology | DX: Z01.818 Encounter for other preprocedural examination (principal); E66.01 Morbid (severe) obesity due to excess calories | CPT/HCPCS: 74246 ==

== ENCOUNTER 2023-01-05 13:55 | Outpatient (AMB) | payer BC, SELFPAY ==
[2023-01-05 14:06] VITALS: BP 130/80; PULSE 50; BMI 37.2
--- NOTE | 2023-01-05 14:06 | A.OFFVIS_ITS ---
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 She is a pleasant 47-year-old female who recently underwent a stress test for preoperative workup for bariatric surgery. This is to improve her risk factors including low risk for future cardiovascular events. Patient underwent echocardiogram which showed essentially normal structure of the heart. She also under stress test which had moderate workload showed abnormal EKG changes suggestive ischemia. She has symptoms of shortness of breath but no chest discomfort. She usually does not get any symptoms with exer tion. She does exercise on a regular basis. She does have hyperlipidemia and family history for premature coronary artery disease. She denies any worsening shortness of breath, orthopnea, PND. PFSH Medical History Hypersomnolence Hyperlipidemia Diverticulitis DJD (degenerative joint disease) Morbid obesity Surgical History Hx of tubal ligation Hx of cholecystectomy Family History Father CAD (coronary artery disease) Alcohol intake: current Alcohol intake frequency: a few times a week Patient Tobacco Use Status: Never used Tobacco Review of Systems Const Denies chills, Denies daytime sleepiness, Denies fatigue, Denies fever(s), Denies frequent falls, Denies poor appetite, Denies snoring, Denies stops breathing during sleep, Denies weakness, Denies weight gain and Denies weight loss Eyes Denies loss of vision ENT Denies dizziness and Denies hearing loss Card Denies chest pain, Denies claudication, Denies leg edema, Denies lightheadedness, Denies palpitations, Denies dyspnea, Denies dyspnea on exertion and Denies orthopnea Resp Denies cough, Denies excessive phlegm production, Denies dyspnea, Denies dyspnea on exertion, Denies snoring and Denies wheezing GI Denies abdominal pain, Denies hematochezia, Denies change in bowel habits, Denies nausea and Denies vomiting Denies urinary frequency and Denies dysuria Musc Denies arthralgias, Denies muscle weakness, Denies numbness and Denies other (frequent falls) Skin/Breast Denies nail changes and Denies rash Neuro Denies Abnormal speech present, Denies dizziness, Denies frequent falls, Denies loss of vision, Denies memory loss, Denies numbness and Denies weakness Psych Denies depression and Denies memory loss Endo Denies fatigue and Denies palpitations Braulio/Lymph Reports easy bruising and Reports other (anemia) Aller/Immun Denies wheezing Physical Exam Vital Signs: Last Vital Signs Pulse 50 01/05/23 14:06 BP 130/80 01/05/23 14:06 BMI result Body Mass Index 37.2 Const General: cooperative, comfortable, no acute distress, alert, awake, Physically active and well groomed Nutritional Appearance: obese Orientation/consciousness: patient oriented x3 Limitations: no limitations HEENT Head: Yes normocephalic and Yes atraumatic Neck Neck: Yes trachea midline, Yes supple and Yes no JVD Resp Effort & Inspection: normal respiratory effort Auscultation: clear to auscultation bilaterally Cardio Jugular venous distension: no JVD Palpation: normal PMI Rate: regular rate Rhythm: regular rhythm Heart sounds: S1 normal heart sound present, S2 normal heart sound present, no click, no gallops, no murmurs and no rubs GI Auscultation: normal bowel sounds Skin General skin exam: no rashes or lesions noted Neuro General: patient oriented x3 and no focal motor deficits Speech: No Abnormal speech present Extrem General: Yes no clubbing, cyanosis or edema Psych Appearance: grossly normal Office Procedures EKG Details: EKG shows normal sinus rhythm with voltage criteria for LVH with possible QS pattern in lead V1 V2 which could be due to lead placement [id number], Complete Assessment & Plan Assessment & Plan (1) Preoperative cardiovascular examination: Code(s): Z01.810 - Encounter for preprocedural cardiovascular examination Plan: Preoperative cardiovascular risk stratification in this middle-aged woman with risk factors of obesity and hyperlipidemia. Patient underwent a stress test which had moderate workload was suggestive of ischemia. Discussed with her about findings of stress test and possibility of false-positive results with higher tendency in female gender. This was discussed with her. Will further like to risk stratify with stress echocardiogram prior to going for elective bariatric surgery. This was discussed with her. This will be scheduled in near future. She understands and agrees. If this is within acceptable limits with no evidence of ischemia by negative wall motion at peak workload, should be optimized to undergo surgery with low risk for perioperative cardiovascular morbidity mortality. (2) Hyperlipidemia: Code(s): E78.5 - Hyperlipidemia, unspecified Plan: Patient with hyperlipidemia with family history for premature coronary artery disease and risk factor of obesity. Suggest further evaluation for coronary atherosclerosis with coronary calcium score. Further treatment based on the finding of coronary calcium score. This was discussed with her. She understands agrees. Follow up in the clinic if need be. Thank you for allowing me to partake in the care Coding Level of Care Code New Pt Level 4 (19664) Diagnoses Preoperative cardiovascular examination Z01.810 Hyperlipidemia E78.5 CPT Codes EKG - CPT: 27202-[id number], Complete ([id number])
== END 2023-01-05 14:28 | disposition home or self-care (01) ==
PROVIDERS: PCP Family Medicine; Visit Provider Internal Medicine Cardiovascular Disease
DX: Z01.810 Encounter for preprocedural cardiovascular examination (principal); E78.5 Hyperlipidemia, unspecified
CPT/HCPCS: 93010; 99204

== ENCOUNTER → 2023-01-05 13:55 | Outpatient (BNVA) | payer BC, SELFPAY | PROVIDERS: PCP Family Medicine; Visit Provider Internal Medicine Cardiovascular Disease | DX: Z01.810 Encounter for preprocedural cardiovascular examination (principal); E78.5 Hyperlipidemia, unspecified | CPT/HCPCS: 93005 ==

== ENCOUNTER → 2023-02-19 10:47 | Outpatient (REF) | payer BC, SELFPAY | LOC: HO.CARD 10:47 | PROVIDERS: PCP Family Medicine; Visit Provider Internal Medicine Cardiovascular Disease | DX: Z01.810 Encounter for preprocedural cardiovascular examination (principal) | CPT/HCPCS: 93350; Q9957 ==

== ENCOUNTER → 2023-02-19 10:49 | Outpatient (BNV) | payer BC, SELFPAY | PROVIDERS: PCP Family Medicine; Visit Provider Nurse Practitioner | DX: R06.02 Shortness of breath (principal) | CPT/HCPCS: 93016; 93018; 93350; 93352 ==

== ENCOUNTER 2023-02-26 08:24 | Outpatient (AMB) | payer SELFPAY ==
--- NOTE | 2023-02-26 10:07 | MHC.OFFVISWM ---
Intake VS Expanded 02/26/23 10:22 Height 5 ft 11 in Weight 263 lb 1 oz BMI 36.7 Intake Visit Reasons: TV Pre Op LSG 03/04/23 Allergies No Known Allergies [No Known Allergies*] Allergy (Verified 02/26/23 10:07) Medication List - Last Reconciled 02/26/23 by Alireza Hyde MD atorvastatin 40 mg PO DAILY cholecalciferol (vitamin D3) 125 mcg PO DAILY ondansetron 4 mg PO Q12H pantoprazole 40 mg PO DAILY polyethylene glycol 3350 (Miralax) 17 grams PO DAILY sucralfate 10 mL PO BID HPI TV Pre Op LSG 03/04/23 HPI Details Start time: 9.58am, End time: 10.28am ?I spent 25 minutes speaking with the patient on the phone plus an additional 5 minutes reviewing and updating records for a total of 30 minutes HPI Comments History of Present Illness Details Overall weight loss: 23.9lbs, or 8.33% TBWL Is doing 2 Essie 6 protein shakes (1/2 scoop in water), 2 Zone Perfect protein bars and one meal (10 forks of protein and 10 forks of salad or vegetables) Exercise: is doing either the treadmill or the elliptical x3/week PFSH Medical History Hypersomnolence Hyperlipidemia Diverticulitis DJD (degenerative joint disease) Morbid obesity Surgical History Hx of tubal ligation Hx of cholecystectomy Family History Father CAD (coronary artery disease) Social History Alcohol intake: current Alcohol intake frequency: a few times a week Patient Tobacco Use Status: Never used Tobacco Assessment & Plan Assessment & Plan (1) Obesity: Code(s): E66.9 - Obesity, unspecified Qualifiers: Obesity type: due to excess calories Obesity classification: adult class 2 (BMI 35 - 39.9) Serious obesity comorbidity presence: with serious comorbidity Body mass index: BMI 36.0-36.9 Qualified Code(s): E66.01 - Morbid (severe) obesity due to excess calories; Z68.36 - Body mass index [BMI] 36.0-36.9, adult Plan: 1. Plan for lap sleeve gastrectomy including upper GI endoscopy. All tests has been completed and reviewed and the patient is cleared for the surgery. ?If diaphragmatic or ventral hernias are present at time of surgery, these will be repaired laparoscopically as well. 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 I emphasized the importance of close follow-up, adherence to instructions and good communication. So far she has proven to be an excellent communicator and very compliant with all our directions accomplishing a great weight loss. I believe that she is an excellent candidate and she is ready. 2. Preop prescriptions were provided and explained the purpose of each one. Need to be purchased preop. Start Pantoprazole now as you get it from the pharmacy, 1 pill per day. Sucralfate and Zofran are for after surgery as needed. 3. Bowel prep: please do 7 packets ?of Miralax mixing each one with a an 8oz glass of water, crystal light, gatorade zero, or propel ?on 03/02/23 and the same amount on 03/03/23. The Miralax you begin with one packet at a time in 8oz water or crystal light, gatorade zero, or propel ?as early in the day as you can and you do them back to back until you finish them. Continue the protein shakes during? the bowel prep. 4. Needs to purchase 1oz medicine cups . 5. Needs to purchase Children's liquid Tylenol for postop pain control. 6. Avoid aspirin, motrin, Advil, Aleve, Ibuprofen, Naproxyn. Tylenol is OK. 7. She needs to purchase the Celebrate 4:1 protein shakes from the hospital's gift [facility]. 8. Will do basic preop blood work-up any day between today 02/26/23 and tomorrow 02/27/23 fasting for 12 hours and is scheduled to see the Anesthesiologist prior to the day of surgery. 9. Importance of adherence to postop folllow-up and recommendations was underscored and she understands that. 10. Stop food and bars as of today 02/26/23 and continue with 2 protein shakes (HALF scoop EACH in 8oz water) at 6am-8am and 9am-11am, and three more protein shakes with ONE scoop EACH in 8oz of water at 12pm-2pm, 3pm-5pm and 6pm-8pm 11. No soups, broths or V8 12. The patient's?medical?history has been reviewed and they are considered low risk for post op DVT and therefore DVT prophylaxis is not considered necessary. Travel after surgery was reviewed. The patient has not disclosed any travel plans during the first 30 days after surgery and they have been advised that within the first 30 days after surgery any bus, plane, train or car travel over 2 hours in duration is contraindicated due to the possibility of developing blood clots from immobility. Any travel, needs to include periods of ambulation of 10 minutes in duration every 2 hours.? Patient was instructed to discuss any plans for travel during this period with their bariatric surgeon.? 13. Please take at the day of surgery the following medications: NONE 14. Stop any control pills and don't use them for one month after surgery 15. Absolutely no smoking or vaping, or marijuana until the surgery and for at least the first 4 weeks. Only nicotine patches are allowed. 16. Send me weight measurements on Wednesday and then on 03/04/23 the day of surgery before you go to the hospital. 17. Avoid any steroids by mouth for any reason. Let me know if someone prescribes them to you 18. These instructions supersede anything else you read in the handbook, anything you watched in videos or classes or you were told by any other provider. If there is any conflict, you follow the above instructions and nothing else. Medications: New pantoprazole 40 mg PO DAILY 90 tabs 0RF K21.9 - Gastro-esophageal reflux disease without esophagitis sucralfate 10 mL PO BID 600 mL 2RF K21.9 - Gastro-esophageal reflux disease without esophagitis polyethylene glycol 3350 (Miralax) Mix each packet with 8oz of water, Crystal light, or Gatorade zero, or Propel and do 7 packets on 03/02/23 and another 7 packets on 03/03/23 17 grams PO DAILY 14 ea 0RF Z01.818 - Encounter for other preprocedural examination ondansetron Only take one every 12 hours as needed if you have nausea 4 mg PO Q12H 20 tabs 0RF nausea and vomiting R11.0 - Nausea Telehealth Telehealth Location of provider rendering services: practice address Location of patient: address on file Patient Identification confirmed using: Name, : Yes Telehealth method: voice only Patient verbally consented to treatment: Yes Patient verbally consented to billing insurance company: Yes Patient informed of any privacy concerns related to visit: Yes Minutes spent on Phone/Video with Pt.: 30 Coding Level of Care Code Tele Est Pt Level 4 (49650) Diagnoses Class 2 severe obesity due to excess calories with serious comorbidity and body mass index (BMI) of 36.0 to 36.9 in adult E66.01; Z68.36 Obesity type: due to excess calories Obesity classification: adult class 2 (BMI 35 - 39.9) Serious obesity comorbidity presence: with serious comorbidity Body mass index: BMI 36.0-36.9 Time Spent (min) 30
[2023-02-26 10:22] VITALS: BMI 36.7
== END 2023-02-26 10:29 | disposition home or self-care (01) ==
LOC: HO.HBS 08:24
PROVIDERS: PCP Family Medicine; Visit Provider Surgery
DX: E66.01 Morbid (severe) obesity due to excess calories (principal); Z68.36 Body mass index [BMI] 36.0-36.9, adult
CPT/HCPCS: 99024

== ENCOUNTER → 2023-02-26 08:24 | Outpatient (BNVA) | payer BC, SELFPAY | PROVIDERS: PCP Family Medicine; Visit Provider Surgery | DX: E66.01 Morbid (severe) obesity due to excess calories (principal); Z68.36 Body mass index [BMI] 36.0-36.9, adult | CPT/HCPCS: 99212 ==

== ENCOUNTER 2023-03-04 07:54 | Inpatient (IN) | payer SELFPAY ==
[2023-02-26 08:38] LABS: MANUAL DIFF FLAG NO
[2023-02-26 08:49] LABS: Basophils Absolute Auto 0.1 X10*3/uL (0.0-0.2); Basophils Percent Auto 0.8 % (0-2); Eosinophils Absolute Auto 0.2 X10*3/uL (0.0-0.4); Eosinophils Percent Auto 2.1 % (0-4); Hematocrit 41.3 % (37.0-47.0); Hemoglobin 12.8 g/dl (12.0-16.0); Imm Gran Abs Auto 0.03 X10*3/uL (0.00-0.03); Imm Gran Pct Auto 0.4 % (0.0-0.4); Lymphocytes Absolute Auto 1.3 X10*3/uL (1.2-4.9); Lymphocytes Percent Auto 16.5 % (20-40); Mean Corpuscular Hemoglobin 23.5 pg (27.0-33.0); Mean Corpuscular Volume 75.9 fL (80.0-98.0); Mean Platelet Volume 9.5 fL (9.4-12.3); Monocytes Absolute Auto 0.5 X10*3/uL (0.1-1.2); Neutrophils Absolute Auto 5.5 x10*3/uL (2.0-8.3); Neutrophils Percent Auto 73.2 % (45-73); Platelet Count 325 X10*3/uL (160-400); Red Blood Count 5.44 X10*6/uL (4.20-5.50); Red Cell Distribution Width 16.4 % (11.0-16.0); White Blood Count 7.6 X10*3/uL (4.8-10.8)
[2023-02-26 08:58] LABS: Partial Thromboplastin Time 36.1 SEC (26.0-36.4)
[2023-02-26 09:33] LABS: Estimated Average Glucose 108 mg/dL; Hemoglobin A1c % 5.4 % (<6.0)
[2023-02-26 09:39] LABS: Alanine Aminotransferase 16 U/L (0-31); Albumin Level 4.3 g/dL (3.5-5.0); Alkaline Phosphatase 81 U/L (39-117); Anion Gap 10 (12-20); Aspartate Amino Transferase 16 U/L (5-31); Bilirubin Total 0.9 mg/dL (0.0-1.0); Blood Urea Nitrogen 12 mg/dL (9-16); C Reactive Protein 1.48 mg/dL (< or = 0.50); Calcium 9.7 mg/dL (8.4-10.2); Carbon Dioxide 27 mmol/L (22-29); Chloride 105 mmol/L (96-108); Cholesterol 140 mg/dL (<200); Estimated Glomerular Filt Rate > 60; Glucose Random 90 mg/dL (60-115); HDL Cholesterol 56 mg/dL (>40); Iron 85 mcg/dL (30-160); LDL Cholesterol Calculated 67 mg/dL (<100); Percent Iron Saturation 21 % (15-50); Potassium 4.2 mmol/L (3.3-5.1); Sodium 138 mmol/L (135-145); Total Iron Binding Capacity 396 mcg/dL (228-428); Total Protein 7.8 g/dL (6.5-8.0); Triglycerides 85 mg/dL (<150); Unsaturated Iron Binding 311 ug/dL
[2023-02-26 09:58] LABS: Ferritin 18 ng/mL (10-250); TSH reflex Free T4 0.69 uIU/mL (0.32-4.0); Vitamin D 25-OH Total 30.6 ng/mL (>30)
[2023-02-26 10:46] LABS: Vitamin B12 618 pg/mL (200-900)
--- NOTE | 2023-02-27 00:19 | P.HPSUR_ITS ---
Pre-Procedural Eval Section A Date of Service: 02/27/23 The patient is an INPATIENT: Yes The History & Physical has been completed within 30 days and I have reviewed it.: Yes Section B Chief Complaint: Obesity, unspecified Relevant Family History (Specify if Yes): No Relevant Social History: None Present Medications: None Medical History: No relevant PMH History of Previous Operations: No relevant previous surgery Allergies: Allergies Allergy/AdvReac Type Severity Reaction Status Date / Time No Known Allergies Allergy Verified 02/26/23 10:07 [No Known Allergies*] Review of Systems Sugical H&P ROS: Negative: Constitution, Cardiovascular, Respiratory, Neurological, Psychiatric, Hem-Onc, Allergic/Immunologic, Gastrointestinal, Genitourinary, Musculoskeletal, Integumentary, Endocrine and Eyes/Ears/ Nose/Throat Exam Surgical H&P Exam: Normal: HEENT, Normal: Heart, Normal: Lungs, Normal: Extremities, Normal: Abdomen, Normal: Skin and Normal: Neurological Plan Diagnosis/Plan: Unchanged I have reviewed the history and physical and performed a pertinent physical examination on my patient. No changes have occurred unless specified. Time Spent With Patient Time: Total time managing care of this patient today ____ minutes.
[2023-03-01 16:59] LABS: Zinc 84 mcg/dL (60-130)
[2023-03-02 11:37] VITALS: BMI 36.7
--- NOTE | 2023-03-02 13:48 | P.CONAN_ITS ---
Documented by User: Beata Brown NP 03/02/23 13:55 HPI - Anesthesia Eval Consult details Narrative: 47yo F for Gastrectomy Sleeve-EGD possible diapgragmatic hernia, possible ventral hernia, possible open Cardiac cleared (abn stress test likely false postive and stress echo showed no signs of ischemia) PMFSH Active Problems Active Problems: All Active Problems (Updated 02/26/23 @ 10:24 by Alireza Hyde MD) Pre-op evaluation (Acute) Preoperative cardiovascular examination (Acute) BMI 37.0-37.9, adult (Acute) Abnormal stress test (Acute) BMI 38.0-38.9,adult (Acute) Obesity (Acute) Complex posttraumatic stress disorder (Acute) Abnormal EKG (Acute) LVH (left ventricular hypertrophy) (Acute) Vitamin D deficiency (Acute) Hypersomnolence (Acute) Hyperlipidemia (Acute) DJD (degenerative joint disease) (Acute) Morbid obesity (Acute) Past Medical History Medical History (Updated 03/02/23 @ 16:00 by Taamnna Tucker RN) HANNAH (obstructive sleep apnea) Hypersomnolence Hyperlipidemia Diverticulitis DJD (degenerative joint disease) Morbid obesity Family History Family History Father CAD (coronary artery disease) Surgical History Surgical History Hx of tubal ligation Hx of cholecystectomy Social History Social History (Updated 03/02/23 @ 15:57 by Tamanna Tucker RN) Household Members: Significant Other Are you a primary health care marketing manager to a significant other at home: No Do you presently have visiting nurse or other home services: No Alcohol intake: current Alcohol intake frequency: a few times a week Patient Tobacco Use Status: Former Tobacco user Quit Date: 2018 Tobacco use type: Cigarette Use of substances other than those prescribed or required for medical reasons: No Have you been hit, kicked, punched, or otherwise hurt by someone within the past year? If so, by whom?: No Are you DNR?: No Advance Directives: No Advance Directives Information Provided: Yes Advance Directives on File: No Recently lost weight without trying: No Nutrition Risks: No Nutritional Risk Patient : No FDLMP: 02/09/2023 : No Poor oral hygiene: No Meds Allergies Allergy/AdvReac Type Severity Reaction Status Date / Time No Known Allergies Allergy Verified 03/04/23 08:27 [No Known Allergies*] Home Medications Medication Instructions Recorded Confirmed Last Taken Type magnesium 200 mg tablet 400 mg PO DAILY 03/02/23 03/04/23 03/03/23 History Exam Height,Weight and Vital Signs: Height 5 ft 11 in Weight 119.295 kg Pertinent Lab Results Pertinent Lab Results: Laboratory Tests 02/26/23 02/26/23 02/26/23 08:26 08:36 Unknown WBC 7.6 RBC 5.44 Hgb 12.8 Hct 41.3 MCV 75.9 L MCH 23.5 L MCHC 31.0 RDW 16.4 H Plt Count 325 MPV 9.5 Immature Gran % (Auto) 0.4 Neut % (Auto) 73.2 H Lymph % (Auto) 16.5 L Walton % (Auto) 7.0 Eos % (Auto) 2.1 Baso % (Auto) 0.8 Lymph # (Auto) 1.3 Walton # (Auto) 0.5 Eos # (Auto) 0.2 Baso # (Auto) 0.1 Abs Immat Gran (auto) 0.03 Absolute Neuts (auto) 5.5 Absolute Nucleated RBC 0.000 Nucleated RBC % (auto) 0.0 PT 12.0 INR 1.0 APTT 36.1 Sodium 138 Potassium 4.2 Chloride 105 Carbon Dioxide 27 Anion Gap 10 L BUN 12 Creatinine 0.74 Estim Creat Clear Calc TNP Estimated GFR > 60 Random Glucose 90 Estimat Average Glucose 108 Hemoglobin A1c % 5.4 Calcium 9.7 Iron 85 TIBC 396 % Saturation 21 Unsat Iron Binding 311 Ferritin 18 Total Bilirubin 0.9 AST 16 ALT 16 Alkaline Phosphatase 81 C-Reactive Protein 1.48 H Total Protein 7.8 Albumin 4.3 Triglycerides 85 Cholesterol 140 LDL Cholesterol, Calc 67 HDL Cholesterol 56 Vitamin B12 618 25-OH Vitamin D Total 30.6 L TSH 0.69 Zinc 84 Blood Type O Positive Antibody Screen NEGATIVE Narrative Narrative: EKG 12/2022 normal sinus rhythm with voltage criteria for LVH with possible QS pattern in lead V1 V2 which could be due to lead placement Stress ECHO 02/2023 Protocol: EDIS Max HR: 166 BPM 95% of Pred: 173 BPM Max BP: 164/070 mmHG Max Work Load: 10.2 METS Exercise stress test exercise 9 min 8 sec of Edis protocol achieving 95% MPHR, with mild SOB, no chest discomfort, without arrhythmias, with normotensive response to exercise, with downsloping in aVL and scooping in lead 1. Echo images obtained by tech at rest and immedately post peak exercise. Definity contrast used. Test reviewed with Dr. [place]. EKG reviewed and had significant artifact during exercise but no obvious ischemic changes. Stress images at rest and post stress reviewed. Normal LVEF without RWMA at rest. Post stress LVEF appropriately augmented with no regional wall motion abnormalities. Diastolic stress test parameters: Impaired relaxation at rest with medial E/E` 9.7. TR velocity 2.2 cm/sec. Post stress- Pseudonormal pattern, medial E/E` 10.3, TR velocity 2.2 m/sec. Conclusion: No exercise induced ischemia. No evidence of diastolic dysfunction. ECHO 10/2022 Conclusions: - The left ventricular systolic function is normal. The visually estimated ejection fraction is between 55-60%. - No obvious valvular pathology seen on this study. Assessment and Plan Assessment Anesthesia Assessment: Chart Reviewed Documented by User: Ronal Calderon MD 03/04/23 09:52 [facility] Past Medical History Medical History (Updated 03/02/23 @ 16:00 by Tamanna Tucker, JOSE) HANNAH (obstructive sleep apnea) Hypersomnolence Hyperlipidemia Diverticulitis DJD (degenerative joint disease) Morbid obesity Patient : No Family History Family History Father CAD (coronary artery disease) Family history of problems with anesthesia: No Surgical History Surgical History Hx of tubal ligation Hx of cholecystectomy History of Problems with Anesthesia: No Social History Social History (Updated 03/02/23 @ 15:57 by Tamanna Tucker, RN) Household Members: Significant Other Are you a primary health care marketing manager to a significant other at home: No Do you presently have visiting nurse or other home services: No Alcohol intake: current Alcohol intake frequency: a few times a week Patient Tobacco Use Status: Former Tobacco user Quit Date: 2018 Tobacco use type: Cigarette Use of substances other than those prescribed or required for medical reasons: No Have you been hit, kicked, punched, or otherwise hurt by someone within the past year? If so, by whom?: No Are you DNR?: No Advance Directives: No Advance Directives Information Provided: Yes Advance Directives on File: No Recently lost weight without trying: No Nutrition Risks: No Nutritional Risk Patient : No FDLMP: 02/09/2023 : No Poor oral hygiene: No Meds Allergies Allergy/AdvReac Type Severity Reaction Status Date / Time No Known Allergies Allergy Verified 03/04/23 08:27 [No Known Allergies*] Home Medications Medication Instructions Recorded Confirmed Last Taken Type magnesium 200 mg tablet 400 mg PO DAILY 03/02/23 03/04/23 03/03/23 History Exam Airway Mallampati Class: II TM Dist: >3cm Neck ROM: Full Loose/Missing/Broken Teeth: No Heart: ok Lungs: ok Assessment and Plan Final Anesthetic Review Family History of Problems with Anesthesia: No History of Problems with Anesthesia: No NPO: Yes ASA Class: III Final Preanesthetic Review: No Changes in Pt Med Stat, Meds/Allgs Chart Reviewed, Consent Obtained/Reviewed and Anes Risks/Benef Reviewed Patient Risk: Intermediate Procedure Risk: Intermediate Anesthetic Plan Anesthetic Plan: GA and Agree w/ Assess. and Plan Disposition: Standard PACU
[2023-03-02 15:58] VITALS: BMI 36.3
[2023-03-03 19:04] LABS: Vitamin A 37 mcg/dL (38-98)
[2023-03-04] VITALS (10 sets, daily range): BP systolic 119–142; BP diastolic 51–93; PULSE 52–89; RESP 14–18; TEMP 36–37.1; O2SAT 96–100; BMI 35.5; BMI 35.4
--- OUTSIDE RECORDS SUMMARY | 2023-03-04 08:00 | XMS_ITS | Continuity of Care Document ---
Author Name Unknown Organization [facility] [place] [address] [place] [address]- Care Team Providers Care Journeyman Painter Name Role Phone Lulu Latif MD Primary Care Physician [phone] Encounter 01/21/23 - 01/28/23 [facility] [address], [facility] [address] [place] [address]- Attending Physician: Lopez Ha MD Admitting Physician: Lopez Ha MD Referring Physician: Lopez Ha MD Allergies, Adverse Reactions, Alerts No Known Medication Allergies Medications Diflucan 150 mg oral tablet 1 tablet = 150 mg, By Mouth, Once, # 1 tablet, 0 Refills, Soft Stop, 10/16/22 11:47:00 EDT, [id number], Partial fill upon patient request if the [...] Exam Date Time Procedure Performing Provider Status 01/21/23 9:[address] Heart W/O Dye Kirk Eval Librado , Er ic; Auth (Verified) Notes: (CT Heart W/O Dye Kirk Eval) Reason For Exam: ABDNORMAL STRESS TEST RESULT: CT Heart W/O Dye Kirk Eval CT Heart W/O Dye Kirk Eval INDICATION: ABNORMAL STRESS TEST; Female of age 47 years, race COMPARISON: None TECHNIQUE: Coronary artery Calcium Scoring. After a localizing yarn inspector image was obtained, an ECG-gated noncontrast exam was obtained of the heart in late diastole. The region of interest was limited to the heart in order to optimize image quality. Weight-based protocol using automatic tube modulation was used to optimize exposure parameters. A [employer] 64 scanner was used, with Agatston scoring performed using [employer]) web-based software. CTDIvol Body: 11.87 mGy, DLP Body: 178 mGy*cm. FINDINGS: Coronary Calcium Scoring Summary: Left Main: score 0. LAD: score 0. Circumflex: score 13.7. Right: score 99.2. TOTAL: score 113 Non-coronary Findings: No significant findings. Residual thymic tissue in the anterior mediastinum not unusual. IMPRESSION: The Agatston coronary calcium score is 113. The Multi-Ethnic Study of Atherosclerosis (ESPOSITO) trial on-line calculator can be used to determine the probability of having coronary calcification and thecalcium score percentile for subjects based on age, gender and race/ethnicity who are free of clinical cardiovascular disease and treated diabetes: http://www.esposito-nhlbi.org/Calcium/input.aspx Within this cohort, the probability of having coronary calcification is 7% %. The observed calcium score is at the 99 percentile. An actionable message (Yellow) has been communicated via the DriveHQ system on 01/21/2023 4:39 PM, Message ID [id number]. I have personally reviewed the images and I agree with this report. WSN: [id number] Ordering Physician: Lopez Ha Dictated By: Cooper Beckett MD Dictated Date/Time: 01/21/23 4:39 pm Reviewed By: Duke Sanchez MD Signed By: Duke Sanchez MD Signed Date/Time: 01/21/23 4:44 pm Transcribed By: KANNAN Transcribed Date/Time: 01/21/23 4:28 pm Social History Social History Type Response Smoking Status Former smoker, quit more than 30 days ago entered on: 01/01/22 Sex Patient Care team information Care Team Personnel Name: Lulu Latif MD Position: S Physician - Primary Care Member Role: PCP Address: Address: [address] [place] [address] [place] [address]- Care Team Related Persons Name: MARILY BARNETT Address: [address] [address] Name: BELKYS HARRIS Address: home [facility]
--- OUTSIDE RECORDS SUMMARY | 2023-03-04 08:01 | XMS_ITS | Continuity of Care Document ---
Author Name Unknown [facility] Address [address] [place] [address]- Care Team Providers Care K 9 Handler/ Deputy Name Role Phone Lulu Latif MD Primary Care Physician [id number] Date[facility]s): 10/08/22 - [facility]05[facility] [address] [place] [address]- Attending Physician: Lulu Latif MD Allergies, Adverse Reactions, Alerts No Known Medication Allergies Medications Diflucan 150 mg oral tablet 1 tablet = 150 mg, By Mouth, Once, # 1 tablet, 0 Refills, Soft Stop, 10/16/22 11:47:00 EDT, [id number], Partial fill upon patient request if the [...] Care Member Role: PCP Address: Address: [address] [place] [address] [place] [address]- Care Team Related Persons Name: MARILY BARNETT Address: home [address] [place] [address] Name: BELKYS HARRIS Address: home [facility]
[2023-03-04] MEDS: Lactated Ringers 1,000 ML 100 ML IVCONT ×2 (08:28→15:20)
[2023-03-04] MEDS: Lactated Ringers 1,000 ML 999 ML IV (08:28)
[2023-03-04] MEDS: Aprepitant 32 MG/4.4 ML VIAL IVPUSH (08:29)
--- NOTE | 2023-03-04 09:40 | PHA.MEDREC ---
Pharmacy Consult ? Medication Reconciliation Pharmacy has completed the medication reconciliation. Reviewed med rec done by nursing
--- NOTE | 2023-03-04 10:22 | P.BOP_ITS ---
Brief Operative Note Date of Service: 03/04/23 Pre-op diagnosis: Severe Obesity with comorbidities (see below) Post-op diagnosis: same (& extensive abdominal adhesions) Procedure: INITIAL PATIENT BMI ON PRESENTATION AT OUR OFFICE: 40 kg/m2 LAST BMI BEFORE SURGERY: 36.8 kg/m2 COMORBIDITIES: sleep apnea, DJD, hyperlipidemia, GERD, liver steatosis, liver fibrosis, history of diverticulitis ?The patient presented to the Weight Management Program with significant obesity that was negatively impacting the patient's comorbidities as listed above.? The program is a phased program with a special focus on preoperative medical weight management to promote substantial weight loss and prepare the patients for the second phase of the program: bariatric surgery. The patient participated in an intensive weekly lifestyle ?intervention and exercise program during which the patient ?has lost between the initial office visit and the last preoperative visit 23.9lbs, or 8.33% of initial actual body weight. It was deemed appropriate for the patient to now have bariatric surgery. In light of the current Covid-19 pandemic and the well documented strong association of obesity and increased risk of worse outcomes if infected with Covid-19 (REFERENCES: https://pubmed.ncbi.nlm.nih.gov/51631087/ ,? https://pubmed.ncbi.nlm.nih.gov/64557567/ ), any delay in undergoing bariatric surgery may lead to the patient's worsening health condition and increased?risk of more severe Covid-19 disease if infected. In addition a recent?study from [facility] published in [facility] Surgery on 02/10/2021 ([email or web address]) found that, among patients with obesity, substantial weight loss achieved with surgery was associated with improved outcomes of COVID-19 infection. The findings suggest that obesity can be a modifiable risk factor for the severity of COVID-19 infection. In addition, the patient met the BMI-criteria for bariatric surgery based on the BMI on initial presentation. The patient should not be penalized for achieving such weight loss because ?it is not sustainable long-term without surgical intervention and it was achieved in preparation for bariatric surgery ?under my direction and based on my published research ([email or web address]).pdf and? https://www.soard.org/article/[email or web address](98)94207-X/pdf ) ?that a 10% preoperative weight loss improves long-term weight loss after surgery and reduces perioperative complications.? Insurance carriers such as [facility] have endorsed my recommendations ?and have included in their policies criteria to include a 10% preoperative weight loss requirement. PROCEDURE: Esophago-gastroscopy, laparoscopic lysis of adhesions, laparoscopic sleeve gastrectomy and laparoscopic gastropexy INDICATIONS: This is a 51 year-old female who was electively scheduled for laparoscopic, possibly open sleeve gastrectomy. The risks and complications of the procedure were discussed with the patient in advance, particularly the possibility of ; pulmonary embolism; staple line leak; bleeding; GERD; cardiac, pulmonary, or renal complications; as well as long-term problems such as insufficient weight loss, vitamin deficiency, strictures, or ulcers. The patient understood all the risks, and was in agreement to proceed with surgery. DESCRIPTION OF PROCEDURE: After informed consent was obtained from the patient, the patient was given preoperative antibiotics, and was transferred to the operating room. After successful induction of general anesthesia, pneumatic compression devices were placed on both lower extremities. An upper endoscopy was performed next. The oropharynx and esophagus appeared to be within normal limits. There was no diaphragmatic hernia present consistent with the findings of the preoperative upper GI. The stomach was entered. Then after all fluid and air were suctioned and the stomach was fully decompressed, the scope was withdrawn and secured in the mid esophagus. The patient was then prepped and draped in the usual sterile manner, and abdominal access was established at the left upper quadrant with the Veress needle due to the Gustavo incision from previous open cholecystectomy. The abdomen was insufflated with CO2 to a pressure of 15 mmHg. An extra 5 mm Versis tep port was placed to the left and superior from the umbilicus. The camera was inserted and there was no injury where the needle was inserted. The Veress needle was remoed and it was replaced with a 5 mm Versi Step port. Under direct visualization, an additional port was placed at the left mid-flank area. These trocars were used initially to lyse the abdominal adhesions. There were adhesions in the abdomen from previous open cholecystectomy involving the omentum, the stomach and the anterior abdominal wall. Those were lysed completely with the ultrasonic device.This took an additional 45 minutes to complete and the use of an additional extra 2 55mm trocars. When the adheisons were lysed, using Troy technique, a 12 mm blunt port was inserted to the right of the midline. Two 5 mm Versi-step ports were placed, one to the left upper quadrant, and a 5 mm Versi-Step port to the right upper quadrant. 1% lidocaine plain was used to infiltrate all port sites as well as all fascia defects. Following that, the patient was placed in a steep reverse Trendelenburg position. An additional 5 mm port was placed to the right flank for the Mediflex retractor that was used to retract the left lobe of the liver. The gastro-esophageal fat pad was opened with the ultrasonic device (Thunderbeat, Olympus) and the anterior esophagus and hiatus were exposed. The angle of His was opened with the ultrasonic device the fundus of the stomach from any diaphragmatic and splenic attachments. I then opened the gastrocolic ligament between the transverse colon and the greater curvature of the stomach with the ultrasonic device to enter the lesser sac and facilitate the ligation of the short gastric vessels. I started at a mid-point along the greater curvature and using the Thunderbeat, all short gastric vessels were divided all the way to the angle of His until the left beto was completely dissected at its entirety. I then divided the gastro-colic ligament distally to a distance of about 3-4 cm proximal to the pylorus. The stomach was then divided transversely with three Endo DARI-45 purple and three DARI-60 articulating purple loads using the SIGNIA stapler and loads. Every effort was made that the gastric sleeve had a tubular shape and an even caliber throughout. Once the sleeve resection was completed, the staple line of the gastric sleeve was reinforced with Hemoclips. The resected stomach was retrieved without difficulty from the Troy port. A gastropexy was then performed in order to prevent postoperative GERD and partial gastric volvulus. Several interrupted 2.0 Surgidac sutures were placed between the sleeve's staple line and the previously divided greater omentum and gastro-colic ligament using the Endo-Stitch device. ?An upper endoscopy was performed. There was no narrowing at the GE junction. The scope was easily advanced all the way to the pylorus which was clearly visualized. There was no narrowing anywhere and the sleeve's caliber was even throughout. The sleeve's staple line was inspected and there was no evidence of ischemia, bleeding or dehiscence. At that point the gastroscope was withdrawn from the patient?s mouth while we were decompressing the bowel and the stomach f rom any remaining air. I looked into the lesser sac to see how the sleeve was situating and it was situating well. There was no bleeding from the staple line, spleen, or short gastric vessels. The Mediflex retractor was removed, and the undersurface of the liver was inspected and there was no bleeding. The patient was placed in supine position. I closed the fascial defect of the 12 mm port site with a figure of eight #1 Polysorb suture. Then 30cc Ropivacaine plain with 10 mg of Dexamethasone were used to infiltrate the fascial closure as well as all skin incisions. At this point, the abdomen was deflated, all ports were removed under direct vision, and no bleeding was noted from any of the port sites. The skin incisions were irrigated with saline and were closed with 4-0 absorbable monofilament sutures. Steri-Strips and OpSites were used to cover all incisions. The patient was extubated and was transferred in stable condition to the recovery room for further care. I was present and performed all gomez parts of the procedure. Waldron was the assistant professor of physics. There were no residents to assist with this case. Stu Hyde MD, PhD, FACS Surgeon: Alireza Hyde MD Anesthesia: GETA, local and other (TAP block) Was an Insulation Hoseman used for this Procedure?: No Insulation Hoseman: Devendra Waldron Estimated blood loss (mL): 10 IV fluids (mL): 2,500 Urine output (mL): 0 (No Rose to record output) Pathology: other (Stomach) Condition: stable Disposition: PACU
--- NOTE | 2023-03-04 10:29 | P.PNGS_ITS ---
Subjective Subjective Date of Service: 03/05/23 Interval history: Feels well. Mild incisional pain. She is tolerating phase 1 bariatric diet Physical Exam 2 Vital Signs: Vital Signs: Last Vital Signs Temp 97.0 F 03/04/23 08:24 Pulse 57 03/04/23 08:24 Resp 16 03/04/23 08:24 BP 121/93 H 03/04/23 08:24 Pulse Ox 98 03/04/23 08:24 O2 Del Method Room Air 03/04/23 08:24 BMI result Body Mass Index 35.5 GI: Inspection: Yes normal to inspection, Yes incision (clean, dry and intact) and Yes obesity Palpation (GI): Soft to palpation Extrem: Right lower extremity: normal to inspection (no calf tenderness) L eft lower extremity: normal to inspection (no calf tenderness) Objective Data Active Medications Fentanyl (Fentanyl Citrate/Pf 100 Mcg/2 Ml Vial) 50 mcg IVPUSH Q5M PRN; Protocol PRN Reason: Pain, Severe (Pain Scale 7-10) Hydromorphone HCl (Hydromorphone Hcl 0.5 Mg/0.5 Ml Syringe) 0.5 mg IVPUSH Q5M PRN; Protocol PRN Reason: Pain, Severe (Pain Scale 7-10) Lactated Ringer's (Lr) 1,000 mls @ 100 mls/hr IVCONT .Q10H WEST Last Admin: 03/04/23 08:28 Dose: 100 mls/hr Documented By: FER Ondansetron HCl (Ondansetron Hcl 4 Mg/2 Ml Vial) 4 mg IVPUSH ONCE PRN PRN Reason: Nausea and Vomiting Labs 03/05/23 06:07 03/05/23 06:07 Labs: Laboratory Results - last 24 hr 02/26/23 08:36 Vitamin A 37 L Procedures Date of Service Date of Service: 03/05/23 Progress Note: A&P Assessment and plan (1) Obesity: Status: Acute Assessment and Plan: s/p laparoscopic sleeve gastrectomy, lysis of adhesions and gastropexy Doing well Will check am labs and if OK the patient will be discharged home (2) BMI 36.0-36.9,adult: Status: Acute (3) DJD (degenerative joint disease): Status: Acute (4) Hyperlipidemia: Status: Acute (5) S/P laparoscopy with lysis of adhesions: Status: Acute (6) S/P laparoscopic sleeve gastrectomy: Status: Acute (7) Intra-abdominal adhesions: Status: Acute Time Spent With Patient Time: Total time managing care of this patient today ____ minutes. Quality Stroke Does the patient have a stroke diagnosis?: No VTE Prior VTE?: No VTE Risk Level:: Surgical - moderate VTE Device Contraindication: N/A - Device Ordered VTE Drug Contraindication: Treatment Not Indicated
--- NOTE | 2023-03-04 12:54 | PM.DS ---
DS: Providers Provider Date of Service: 03/05/23 Date of admission: 03/04/23 07:54 Primary care physician: Lulu Latif MD DS: Diagnosis Discharge Diagnosis (1) Obesity: Status: Acute (2) BMI 36.0-36.9,adult: Status: Acute (3) DJD (degenerative joint disease): Status: Acute (4) Hyperlipidemia: Status: Acute DS: Summary Hospital Course Hospital Course: ADMITTING DIAGNOSIS: obesity, LVH, PTSD, HLD ? DISCHARGE DIAGNOSIS: same, s/p laparoscopic sleeve gastrectomy and lysis of adhesions ? PAST SURGICAL HISTORY: cholecystectomy, tubal ligation ? PROCEDURE: upper endoscopy, laparoscopic sleeve gastrectomy and lysis of adhasions ? DISCHARGE SUMMARY: ? History of Present Illness: ? The patient is a?47 year-old woman with a BMI of?40 kg/m2 and associated co-morbidities as described above. The patient had extensive work-up,lost?24.8 lbs preoperatively and was electively scheduled for laparoscopic, possible open sleeve gastrectomy and gastropexy. Risks and complications of the surgery were discussed with the patient in advance, particularly the possibility of , pulmonary embolism, anastomotic leak, bleeding, bowel injury, GERD, cardiac, renal or pulmonary complications. The patient understood all the risks and was in agreement with the surgical plan. ? Hospital Course: ? The patient underwent an uneventful laparoscopic sleeve gastrectomy with gastropexy and lysis of adhesions on the day of admission. Postoperatively, the patient was transferred to the surgical floor. The patient received IV Acetaminophen and IV dilaudid for pain control. Patient was started on bariatric phase 1 diet POD #0. On postoperative day one, the patient was feeling well without nausea, vomiting, fevers, or tachycardia. The patient had some mild incisional pain and the abdomen was soft. ? On the morning of postoperative day one, the patient was continued on 1 ounce of water or ice every half hour. During the day, the patient did fairly well, having some incisional pain, but able to ambulate adequately and to tolerate liquids well. ? Since the patient is doing well, we decided that the patient was ready to be discharged. The patient was given instructions to follow-up with me next week and to call my office for any fever over 101, persistent abdominal pain, nausea, vomiting, GERD, symptoms of DVT such as calf tenderness, or leg swelling, or pulmonary embolism such as chest pain or shortness of breath. The patient was also instructed to drink 40-60 ounces of liquids per day using the 1-ounce cups. The patient had been given prescriptions for Tylenol for pain, Zofran prn for nausea, and pantoprazole and carafate previously. The patient was encouraged to ambulate and use the incentive spirometer. The patient was allowed to shower, but no baths, and encouraged to stay active at home. All of these instructions were given to the patient personally. All questions were answered and the patient understood all instructions, the instructions were also given to the patient in print. Time Attestation Discharge coordination time: Less than 30 minutes Quality: Safe Use of Opioids Does Pt have an Active Cancer Diagnosis on the Problem List?: No Quality: Stroke Does the patient have a stroke diagnosis?: No Physical Exam Vital Signs: Vital Signs: Last Vital Signs Temp 97.0 F 03/04/23 08:24 Pulse 57 03/04/23 08:24 Resp 16 03/04/23 08:24 BP 121/93 H 03/04/23 08:24 Pulse Ox 98 03/04/23 08:24 O2 Del Method Room Air 03/04/23 08:24 BMI result Body Mass Index 35.5 DS: Data Data Completed and Pending Pending studies at discharge: Pending at discharge 03/04/23 12:15 Surgical [PTH] Routine 03/04/23 12:31 Surgical [PTH] Routine Labs on day of discharge: Laboratory Results - last 24 hr 02/26/23 08:36 Vitamin A 37 L Discharge Plan Discharge Anticipated Discharge Date/Time: 03/05/23 10:00 Patient Disposition: Home, Self-Care Discharge Diagnosis: s/p laparoscopic sleeve gastrectomy and lysis of adhesions Referrals: Lulu Latif MD [Primary Care Provider] - 1 Week Discharge Medications: Continued atorvastatin 40 mg tablet 40 mg PO DAILY Qty: 90 3RF pantoprazole 40 mg tablet,delayed release (DR/EC) 40 mg PO DAILY Qty: 90 0RF sucralfate 100 mg/mL suspension 10 ml PO BID Qty: 600 2RF ondansetron 4 mg tablet,disintegrating 4 mg PO Q12H Qty: 20 0RF Rx Instructions: Only take one every 12 hours as needed if you have nausea Discontinued cholecalciferol (vitamin D3) 125 mcg (5,000 unit) capsule 125 mcg PO DAILY Qty: 30 2RF magnesium 200 mg Tablet 400 mg PO DAILY polyethylene glycol 3350 [Miralax] 17 gram powder in packet 17 g PO DAILY Qty: 14 0RF Rx Instructions: Mix each packet with 8oz of water, Crystal light, or Gatorade zero, or Propel and do 7 packets on 03/02/23 and another 7 packets on 03/03/23 Discharge Orders: Discharge Order (Routine); Ordered 03/05/23 Ordered By: Alireza Hyde Activity on Discharge: No heavy lifting Stand Alone Forms: Patient Portal Discharge page Care Plan Goals: weight loss Health Concerns: obesity Plan of Treatment: No tub baths, sex or returning to work until discussed at first post op appointment. No exercise, alcohol, tobacco or illegal drug use. Continue to use incentive spirometer hourly while awake. Walk in home for 5- 10 minutes every 2 hours during the first week. Follow all instructions in the bariatric handbook and call with any questions.Discharge Instructions 1. Please call your doctor or come back to the emergency room should any new symptoms arise. 2. You will receive a courtesy call from [facility] 24-48 hours after discharge. 3. Activity: abstain from alcohol, practice limited stair climbing, no bending, no driving, no exercise, no illicit substances, no lifting, no sex, no tub bath, no work. 4. Diet: continue as discussed with Dr. yHde. 5. Dressing Change/Wound Care: Your incision is covered by clear bandages and guaze underneath. If the area is tender, you may apply an ice pack for short intervals (no more than 20 minutes on, followed by at least 20 minutes off). Do not apply heat. Do not use creams, lotions, or topical antibiotics unless instructed to do so by your surgeon. These can cause infection or allergic reaction. 6. Call your doctor if: - Your temperature exceeds 101.5 F - You experience excessive pain or swelling - You have an unexpected reaction to medication - You have excessive bleeding - You experience continued vomiting/nausea - Your incision begins to separate - Your incision shows signs of infection such as increased redness, swelling, excessive pain, heat, or drainage (light blood or clear fluid is normal) 7. General instructions: No lifting greater than 5 lbs for 1 week and not more than 20lbs the next 3?weeks. No driving until seen at the office in 5-7 days after surgery. If you do not move your bowels in the next 2 days, please tell?Dr. Hyde. Please walk around your home every hour or two to prevent blood clots from forming in your legs. You do not need to wake from sleeping to walk. Please sleep in a bed or couch to prevent kinking at the hips and knees. Please take your incentive spirometer (your lung signwriter) home with you and use it for the next few days to prevent pneumonia. You may shower, no hot tubs, baths or swimming pools.?Please follow the post op diet instructions you are?given by Dr Hyde? and text me daily at 5-6pm for an update.?If you have any issues or concerns or questions please communicate this to him via text.? The Celebrate shakes have all of the bariatric vitamins you need if you consume these shakes. If you are drinking other protein shakes, you will need to purchase the Celebrate multivitamins and calcium that are available in the hospital gift shop on the first floor of the [facility].??Do not take anything without first discussing with Dr Hyde. Please make sure you are consuming at least 40 ounces of fluids per day starting the?day AFTER your discharge from the hospital. Always drink 1-2 ml per minute using the 5ml?syringe. If you drink faster you may experience?bloating,?gas pain, burping, nausea or heartburn. In that case please slow down your pace and use the syringe to?understand better the?proper?pace and volume of drinking. Do not hesitate to contact the office with any questions at . The patient's medical history has been reviewed and they are considered low risk for post op DVT and therefore DVT prophylaxis is not considered necessary. Travel after surgery was reviewed. The patient has not disclosed any travel plans during the first 30 days after surgery and they have been advised that within the first 30 days after surgery any bus, plane, train or car travel over 2 hours in duration is contraindicated due to the possibility of developing blood clots from immobility. Any travel, needs to include periods of ambulation of 10 minutes in duration every 2 hours.? The patient was instructed to discuss any plans for travel during this period with their bariatric surgeon. Assessment: stable s/p laparoscopic sleeve gastrectomy and lysis of adhesions
[2023-03-04 14:00] LABS: Hematocrit 38.1 % (37.0-47.0)
[2023-03-04 14:22] LABS: Anion Gap 15 (12-20); Blood Urea Nitrogen 12 mg/dL (9-16); Carbon Dioxide 23 mmol/L (22-29); Chloride 104 mmol/L (96-108); Creatinine Clr Calc Pharmacy 104.6; Estimated Glomerular Filt Rate > 60; Glucose Random 88 mg/dL (60-115); Potassium 4.5 mmol/L (3.3-5.1); Sodium 137 mmol/L (135-145)
[2023-03-04 14:48] LABS: Vitamin B1 7 nmol/L (8-30)
[2023-03-04] MEDS: 0.9 % Sodium Chloride Flush 3 ML SYRINGE IVFLUSH ×2 (15:20→21:01)
[2023-03-04] MEDS: ceFAZolin Sodium/Dextrose,Iso 2 GM/50 ML PIGGYBACK IV (16:53)
[2023-03-04] MEDS: Acetaminophen 1,000 MG/100 ML PIGGYBACK 16.7 MG IV ×2 (17:59→22:40)
[2023-03-04] MEDS: Famotidine/PF 20 MG/2 ML VIAL IVPUSH (21:01)
[2023-03-05] MEDS: Lactated Ringers 1,000 ML 100 ML IVCONT (01:20)
[2023-03-05 03:55] VITALS: BP 112/59; PULSE 78; RESP 17; TEMP 37; O2SAT 100
[2023-03-05] MEDS: Acetaminophen 1,000 MG/100 ML PIGGYBACK 16.7 MG IV (04:55)
[2023-03-05 06:14] LABS: MANUAL DIFF FLAG NO
[2023-03-05 06:22] LABS: Basophils Percent Auto 0.2 % (0-2); Eosinophils Percent Auto 0.3 % (0-4); Hematocrit 38.3 % (37.0-47.0); Hemoglobin 12.1 g/dl (12.0-16.0); Imm Gran Abs Auto 0.05 X10*3/uL (0.00-0.03); Imm Gran Pct Auto 0.5 % (0.0-0.4); Lymphocytes Absolute Auto 0.7 X10*3/uL (1.2-4.9); Lymphocytes Percent Auto 7.2 % (20-40); Mean Corpuscular HGB Conc 31.6 g/dl (31.0-35.0); Mean Corpuscular Hemoglobin 24.2 pg (27.0-33.0); Mean Corpuscular Volume 76.8 fL (80.0-98.0); Mean Platelet Volume 10.2 fL (9.4-12.3); Monocytes Absolute Auto 0.3 X10*3/uL (0.1-1.2); Monocytes Percent Auto 3.4 % (2-11); Neutrophils Absolute Auto 8.5 x10*3/uL (2.0-8.3); Neutrophils Percent Auto 88.4 % (45-73); Platelet Count 287 X10*3/uL (160-400); Red Blood Count 4.99 X10*6/uL (4.20-5.50); Red Cell Distribution Width 16.1 % (11.0-16.0); White Blood Count 9.7 X10*3/uL (4.8-10.8)
[2023-03-05 06:38] LABS: Anion Gap 15 (12-20); Blood Urea Nitrogen 9 mg/dL (9-16); Calcium 9.4 mg/dL (8.4-10.2); Carbon Dioxide 22 mmol/L (22-29); Chloride 104 mmol/L (96-108); Estimated Glomerular Filt Rate > 60; Glucose Random 109 mg/dL (60-115); Potassium 4.4 mmol/L (3.3-5.1); Sodium 137 mmol/L (135-145)
[2023-03-05 06:43] VITALS: BP 120/71; PULSE 54; RESP 17; TEMP 36.6; O2SAT 99
[2023-03-05] MEDS: Famotidine/PF 20 MG/2 ML VIAL IVPUSH (08:06)
--- NOTE | 2023-03-05 08:18 | PC.NURSE ---
soiled dressings changed on lap sites
--- NOTE | 2023-03-05 14:01 | HO.POSTANES ---
Post Anesthesia Evaluation Post Anesthesia Evaluation Date of Service: 03/05/23 Vital Signs: Vital Signs Temp Pulse Resp BP Pulse Ox O2 Del Method 03/05/23 06:43 98 F 54 17 120/71 99 Room Air 03/05/23 03:55 98.6 F 78 17 112/59 L 100 Room Air Anesthesia: General Endotracheal-GETA Mental Status: Awake Pain Control: Satisfactory Nausea/Vomiting: None Hydration: Adequate Anesthesia-Related Issues: No Anes. Related Issues
== END 2023-03-05 09:42 | disposition home or self-care (01) | DRG 621 ==
LOC: HO.SSSA 12:58 → HO.S3 13:20
PROVIDERS: Physician Assistant Surgical; Admitting Provider Surgery; PCP Family Medicine; Visit Provider Surgery
PROC: 0DB64Z3 Excision of Stomach, Percutaneous Endoscopic Approach, Vertical (ICD-10-PCS; CPT 43845; principal; 2023-03-04 10:10)
DX: E66.01 Morbid (severe) obesity due to excess calories (principal); G47.33 Obstructive sleep apnea (adult) (pediatric); E78.5 Hyperlipidemia, unspecified; K66.0 Peritoneal adhesions (postprocedural) (postinfection); F43.10 Post-traumatic stress disorder, unspecified; Z68.41 Body mass index [BMI] 40.0-44.9, adult; M19.90 Unspecified osteoarthritis, unspecified site; K21.9 Gastro-esophageal reflux disease without esophagitis; K74.00 Hepatic fibrosis, unspecified; K76.0 Fatty (change of) liver, not elsewhere classified; Z87.891 Personal history of nicotine dependence; Z79.899 Other long term (current) drug therapy
CPT/HCPCS: 36415; 80048; 80053; 80061; 82306; 82607; 82728; 83036; 83540; 84425; 84443; 84590; 84630; 85014; 85018; 85025; 85610; 85730; 86140; 86850; 86900; 86901; 88305; 88307; 88342; 99024; A4649; C9088; C9145; J0131; J0690; J1100; J1170; J1596; J2250; J2371; J2405; J2704; J2795; J3010; J7120

== ENCOUNTER → 2023-03-04 07:54 | Outpatient (BNV) | payer SELFPAY | PROVIDERS: Admitting Provider Surgery; PCP Family Medicine; Visit Provider Surgery | DX: E66.9 Obesity, unspecified (principal); Z68.36 Body mass index [BMI] 36.0-36.9, adult; K66.0 Peritoneal adhesions (postprocedural) (postinfection) | CPT/HCPCS: 43659; 43775; 99024 ==

== ENCOUNTER 2023-03-09 10:28 | Outpatient (AMB) | payer BC, SELFPAY ==
--- NOTE | 2023-03-09 11:03 | MHC.OFFVISWM ---
Intake VS Expanded 03/09/23 11:11 BP 133/62 Blood Pressure Location Rt brachial Blood Pressure Position Sitting Pulse 58 Pulse Source Pulse Oximeter Temp 96.9 F Temperature Source Tympanic Pulse Oximetry 58 L Oxygen Delivery Method Room Air Height 5 ft 11 in Weight 251 lb 3.2 oz BMI 35.0 Body Fat % 45.0 Body Fat Mass 98.4 Fat Free Mass 113.0 Visceral Fat Rating 11.0 Body Water % 39.2 Body Water Mass 98.4 Muscle Mass/Score 131.0 Basal Metabolic Rate/Score 1,940 Intake Visit Reasons: (OV) PO LSG 03/04/23 Allergies No Known Allergies [No Known Allergies*] Allergy (Verified 03/04/23 08:27) HPI HPI Comments History of Present Illness Details Patient is a pleasant 47-year-old female who returns the office today in follow-up. She is 5 days post sleeve gastrectomy performed on 03/04/2023. She is tolerating 3 celebrate 4 in 1 shakes with 1 scoop in 8 oz of water each and approximately 70 oz of fluid total per day. She is moved her bowels and denies any significant pain. [facility] Medical History (Updated 03/06/23 @ 00:03 by Emmett Frazier) Pre-op evaluation Preoperative cardiovascular examination BMI 37.0-37.9, adult BMI 38.0-38.9,adult HANNAH (obstructive sleep apnea) Hypersomnolence Hyperlipidemia Diverticulitis DJD (degenerative joint disease) Morbid obesity Surgical History (Updated 03/09/23 @ 11:27 by Ariella Gillette CMA) Hx of laparoscopic partial gastrectomy Hx of tubal ligation Hx of cholecystectomy Family History Father CAD (coronary artery disease) Social History (Updated 03/02/23 @ 15:57 by Tamanna Tucker RN) Household Members: Family Housing: House Are you a primary certified social workers in health care to a significant other at home: No Do you presently have visiting nurse or other home services: No 75 years or older and lives alone: No Alcohol intake: current Alcohol intake frequency: a few times a week Patient Tobacco Use Status: Former Tobacco user Quit Date: 2018 Tobacco use type: Cigarette Physical Exam Vital Signs: Last Vital Signs Temp 96.9 F 03/09/23 11:11 Pulse 58 03/09/23 11:11 BP 133/62 03/09/23 11:11 Pulse Ox 58 L 03/09/23 11:11 Oxygen Delivery Method Room Air 03/09/23 11:11 BMI result Body Mass Index 35.0 GI Inspection: Yes incision (Clean, dry, intact.) Assessment & Plan Assessment & Plan (1) S/P laparoscopic sleeve gastrectomy: Code(s): Z98.84 - Bariatric surgery status Plan: POD 5 s/p LSG on 03/04/[address] Hyde Weight loss prior to surgery was 24.8 pounds or []8.6 % TBWL. Original weight on 10/23/2022 was 287 pounds and op weight was 262.2 pounds. Be sure to text Dr Hyde exactly 1 week after surgery your weight from your home scale so he can adjust your meal plan. Continue meal plan until f/u w Nydia in 2 weeks May shower, no submersion in bath for another week Continue abdominal binder with activity and exercise for the next 2 weeks. Exercise prior to surgery was treadmill and elliptical and may resume No abdominal exercises for 6 weeks post operatively Will be emailed link to post op video for review Reminded of the pace of drinking, 2 mL per minute, 1 oz/15 min. Coding Level of Care Code Global (72023) Diagnoses S/P laparoscopic sleeve gastrectomy Z98.84
[2023-03-09 11:11] VITALS: BP 133/62; PULSE 58; TEMP 36.1; O2SAT 58; BMI 35.0
== END 2023-03-09 13:28 | disposition home or self-care (01) ==
PROVIDERS: PCP Family Medicine; Visit Provider Physician Assistant Surgical
DX: Z98.84 Bariatric surgery status (principal)
CPT/HCPCS: 99024

== ENCOUNTER → 2023-03-09 10:28 | Outpatient (BNVA) | payer BC, SELFPAY | PROVIDERS: PCP Family Medicine; Visit Provider Physician Assistant Surgical ==

== ENCOUNTER 2023-03-29 16:10 | Outpatient (AMB) | payer BC, SELFPAY ==
--- NOTE | 2023-03-29 16:11 | MHC.AMNUTRGE ---
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 Isn't drinking her shakes because is so turned off . Now feeling weak and tired because she isn't getting enough protein. Previously told to have 3 celebrate 4 in 1 shakes with 1 scoop in 8 oz of water each - but admits to not having these. states she is experimenting on her own. She has some products she wants to use - Vitals collagen and Unjury unflavored. She is very open to recommendations, doesn't want to eat food, wants to get enough protien from clear liquid protein sources. Advised pt not to use collagen as main source of protein as it is not a complete protien source. Taking a and tolerating fine. she tried taking bariatric MVI but did not tolerate. Reports unable to exercise as she doesn't feel well enough to do so Quit smoking cigarettes 5 years ago and feels that if she can do that, she will be able to reach her weight loss goals too. Dietary counseling reduction Diagnosis Nutrition problem #1 overweight/obesity As related to (etiology) #1 excess energy intake and physical inactivity As evidenced by (sign/symptom) #1 high BMI Monitoring/Goals Nutrition problem monitoring total energy intake, level of knowledge/skill, total PRO intake, total CHO intake and weight Outcome progress progressing Learning/Education Readiness to learn good Stages of change action Educational materials provided Yes Most Recent Diabetes Results: Cholesterol 140 mg/dL (<200) 02/26/23 HDL Cholesterol 56 mg/dL (>40) 02/26/23 Triglycerides 85 mg/dL (<150) 02/26/23 Creatinine 0.81 mg/dL (0.5-1.4) 03/05/23 Blood Urea Nitrogen 9 mg/dL (9-16) 03/05/23 Sodium 137 mmol/L (135-145) 03/05/23 Potassium 4.4 mmol/L (3.3-5.1) 03/05/23 Chloride 104 mmol/L (96-108) 03/05/23 Carbon Dioxide 22 mmol/L (22-29) 03/05/23 Calcium 9.4 mg/dL (8.4-10.2) 03/05/23 AST 16 U/L (5-31) 02/26/23 ALT 16 U/L (0-31) 02/26/23 Total Protein 7.8 g/dL (6.5-8.0) 02/26/23 Albumin 4.3 g/dL (3.5-5.0) 02/26/23 [facility] Medical History (Updated 03/06/23 @ 00:03 by Emmett Frazier) Pre-op evaluation Preoperative cardiovascular examination BMI 37.0-37.9, adult BMI 38.0-38.9,adult HANNAH (obstructive sleep apnea) Hypersomnolence Hyperlipidemia Diverticulitis DJD (degenerative joint disease) Morbid obesity Surgical History (Updated 03/09/23 @ 11:27 by Ariella Gillette CMA) Hx of laparoscopic partial gastrectomy Hx of tubal ligation Hx of cholecystectomy Family History Father CAD (coronary artery disease) Social History (Updated 03/02/23 @ 15:57 by Tamanna Tucker RN) Household Members: Family Housing: House Are you a primary health care marketing specialist to a significant other at home: No Do you presently have visiting nurse or other home services: No 75 years or older and lives alone: No Alcohol intake: current Alcohol intake frequency: a few times a week Patient Tobacco Use Status: Former Tobacco user Quit Date: 2018 Tobacco use type: Cigarette Assessment & Plan Assessment & Plan (1) Obesity (BMI 30-39.9): Code(s): E66.9 - Obesity, unspecified Plan Currently not meeting protein needs. Provided some additional options for clear protein sources . Per pt preference, will start with 3 scoops unjury powder in water , 2 scoops of vital collagen, and 1 bangladeshi yogurt . Continue for now, will switch to bariatric MVI when further out. Nutrition f/u 04/08 at 11:30 Telehealth Telehealth Location of provider rendering services: practice address Location of patient: address on file Patient Identification confirmed using: Name, : Yes Telehealth method: voice only Patient verbally consented to treatment: Yes Patient verbally consented to billing insurance company: Yes Patient informed of any privacy concerns related to visit: Yes Minutes spent on Phone/Video with Pt.: 30 Coding Level of Care Code Nutr Indiv Subseq (87141) Diagnoses Obesity (BMI 30-39.9) E66.9 Time Spent (min) 30
[2023-03-29 16:35] VITALS: BMI 32.9
== END 2023-03-29 16:40 | disposition home or self-care (01) ==
LOC: HO.HBS 16:10
PROVIDERS: PCP Family Medicine; Visit Provider Dietitian, Registered
DX: E66.9 Obesity, unspecified (principal)

== ENCOUNTER → 2023-03-29 16:10 | Outpatient (BNVA) | payer BC, SELFPAY | PROVIDERS: PCP Family Medicine; Visit Provider Dietitian, Registered | DX: E66.9 Obesity, unspecified (principal); Z68.32 Body mass index [BMI] 32.0-32.9, adult; Z71.3 Dietary counseling and surveillance | CPT/HCPCS: 97803 ==

== ENCOUNTER 2023-04-08 12:00 | Outpatient (AMB) | payer BC, SELFPAY ==
--- NOTE | 2023-04-08 11:36 | A.OFFVIS_ITS ---
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 she states she is really happy with this and feels it is working for her. She likes the flexibility of being able to mix her protine shake variety depending on the day protein bar or irish yogurt pt states having a recent conversation via message with surgeon. Pt reports now feeling confused about nutrition and isn't sure what to do. Hydration : adequate Last appointment pt reported: I'm at the point now when drinking shakes me want to throw up . wasn't drinking her shakes Previously told to have 3 celebrate 4 in 1 shakes with 1 scoop in 8 oz of water each - but admits to not having these. states she is experimenting on her own. Taking a and tolerating fine. she tried taking bariatric MVI but did not tolerate. Quit smoking cigarettes 5 years ago and feels that if she can do that, she will be able to reach her weight loss goals too. Dietary counseling reduction Diagnosis Nutrition problem #1 overweight/obesity As related to (etiology) #1 excess energy intake and physical inactivity As evidenced by (sign/symptom) #1 high BMI Monitoring/Goals Nutrition problem monitoring total energy intake, level of knowledge/skill, total PRO intake, total CHO intake and weight Outcome progress progressing Learning/Education Readiness to learn good Stages of change action Educational materials provided Yes Most Recent Diabetes Results: Cholesterol 140 mg/dL (<200) 02/26/23 HDL Cholesterol 56 mg/dL (>40) 02/26/23 Triglycerides 85 mg/dL (<150) 02/26/23 Creatinine 0.81 mg/dL (0.5-1.4) 03/05/23 Blood Urea Nitrogen 9 mg/dL (9-16) 03/05/23 Sodium 137 mmol/L (135-145) 03/05/23 Potassium 4.4 mmol/L (3.3-5.1) 03/05/23 Chloride 104 mmol/L (96-108) 03/05/23 Carbon Dioxide 22 mmol/L (22-29) 03/05/23 Calcium 9.4 mg/dL (8.4-10.2) 03/05/23 AST 16 U/L (5-31) 02/26/23 ALT 16 U/L (0-31) 02/26/23 Total Protein 7.8 g/dL (6.5-8.0) 02/26/23 Albumin 4.3 g/dL (3.5-5.0) 02/26/23 [facility] Medical History (Updated 03/06/23 @ 00:03 by Emmett Frazier) Pre-op evaluation Preoperative cardiovascular examination BMI 37.0-37.9, adult BMI 38.0-38.9,adult HANNAH (obstructive sleep apnea) Hypersomnolence Hyperlipidemia Diverticulitis DJD (degenerative joint disease) Morbid obesity Surgical History (Updated 03/09/23 @ 11:27 by Ariella Gillette CMA) Hx of laparoscopic partial gastrectomy Hx of tubal ligation Hx of cholecystectomy Family History Father CAD (coronary artery disease) Social History (Updated 03/02/23 @ 15:57 by Tamanna Tucker RN) Household Members: Family Housing: House Are you a primary daycare director to a significant other at home: No Do you presently have visiting nurse or other home services: No 75 years or older and lives alone: No Alcohol intake: current Alcohol intake frequency: a few times a week Patient Tobacco Use Status: Former Tobacco user Quit Date: 2018 Tobacco use type: Cigarette Assessment & Plan Assessment & Plan (1) S/P laparoscopic sleeve gastrectomy: Code(s): Z98.84 - Bariatric surgery status Plan Dr. Hyde would like to f/u with this patient moving forward. Telehealth Telehealth Location of provider rendering services: practice address Location of patient: address on file Patient Identification confirmed using: Name, : Yes Telehealth method: voice only Patient verbally consented to treatment: Yes Patient verbally consented to billing insurance company: Yes Patient informed of any privacy concerns related to visit: Yes Minutes spent on Phone/Video with Pt.: 30 Coding Level of Care Code Nutr Indiv Subseq ([id number]) Diagnoses S/P laparoscopic sleeve gastrectomy Z98.84 Time Spent (min) 30
[2023-04-08 13:51] VITALS: BMI 32.4
== END 2023-04-08 13:42 | disposition home or self-care (01) ==
LOC: HO.HBS 12:01
PROVIDERS: PCP Family Medicine; Visit Provider Dietitian, Registered
DX: Z98.84 Bariatric surgery status (principal)

== ENCOUNTER → 2023-04-08 12:00 | Outpatient (BNVA) | payer BC, SELFPAY | PROVIDERS: PCP Family Medicine; Visit Provider Dietitian, Registered | DX: E66.9 Obesity, unspecified (principal); Z68.32 Body mass index [BMI] 32.0-32.9, adult; Z98.84 Bariatric surgery status; Z71.3 Dietary counseling and surveillance | CPT/HCPCS: 97803 ==

== ENCOUNTER 2023-08-06 09:26 | Outpatient (REF) | payer BC, SELFPAY ==
[2023-08-06 10:33] LABS: MANUAL DIFF FLAG NO
[2023-08-06 10:58] LABS: Basophils Absolute Auto 0.1 X10*3/uL (0.0-0.2); Eosinophils Absolute Auto 0.1 X10*3/uL (0.0-0.4); Eosinophils Percent Auto 2.1 % (0-4); Hematocrit 37.3 % (37.0-47.0); Imm Gran Abs Auto 0.02 X10*3/uL (0.00-0.03); Imm Gran Pct Auto 0.3 % (0.0-0.4); Lymphocytes Absolute Auto 1.6 X10*3/uL (1.2-4.9); Lymphocytes Percent Auto 25.7 % (20-40); Mean Corpuscular HGB Conc 32.2 g/dl (31.0-35.0); Mean Corpuscular Hemoglobin 25.8 pg (27.0-33.0); Mean Platelet Volume 10.5 fL (9.4-12.3); Monocytes Absolute Auto 0.5 X10*3/uL (0.1-1.2); Monocytes Percent Auto 8.3 % (2-11); Neutrophils Absolute Auto 3.8 x10*3/uL (2.0-8.3); Neutrophils Percent Auto 62.6 % (45-73); Platelet Count 281 X10*3/uL (160-400); Red Blood Count 4.66 X10*6/uL (4.20-5.50); Red Cell Distribution Width 14.2 % (11.0-16.0); White Blood Count 6.1 X10*3/uL (4.8-10.8)
[2023-08-06 11:09] LABS: Estimated Average Glucose 100 mg/dL; Hemoglobin A1c % 5.1 % (<6.0)
[2023-08-06 12:01] LABS: Anion Gap 12 (12-20); Blood Urea Nitrogen 15 mg/dL (9-16); Carbon Dioxide 24 mmol/L (22-29); Chloride 108 mmol/L (96-108); Cholesterol 184 mg/dL (<200); Estimated Glomerular Filt Rate > 60; Glucose Random 82 mg/dL (60-115); HDL Cholesterol 68 mg/dL (>40); Iron 47 mcg/dL (30-160); LDL Cholesterol Calculated 108 mg/dL (<100); Percent Iron Saturation 14 % (15-50); Potassium 4.5 mmol/L (3.3-5.1); Sodium 139 mmol/L (135-145); Total Iron Binding Capacity 343 mcg/dL (228-428); Triglycerides 44 mg/dL (<150); Unsaturated Iron Binding 296 ug/dL
[2023-08-06 12:19] LABS: Folate 12.7 ng/mL (> or = 4.0); Vitamin B12 314 pg/mL (200-900)
[2023-08-06 12:28] LABS: Ferritin 9 ng/mL (10-250); Insulin 2 uU/mL (2-29); TSH reflex Free T4 0.51 uIU/mL (0.32-4.0); Vitamin D 25-OH Total 40.9 ng/mL (>30)
[2023-08-10 03:40] LABS: Zinc 61 mcg/dL (60-130)
[2023-08-11 21:49] LABS: Vitamin A 27 mcg/dL (38-98)
[2023-08-13 16:09] LABS: Vitamin B1 8 nmol/L (8-30)
== END 2023-08-06 09:27 | disposition home or self-care (01) ==
LOC: HO.LAB 09:26
PROVIDERS: PCP Family Medicine; Visit Provider Physician Assistant Surgical
DX: Z13.1 Encounter for screening for diabetes mellitus (principal); E55.9 Vitamin D deficiency, unspecified; E78.5 Hyperlipidemia, unspecified; Z98.84 Bariatric surgery status
CPT/HCPCS: 36415; 80048; 80061; 82306; 82607; 82728; 82746; 83036; 83525; 83540; 84425; 84443; 84590; 84630; 85025; 86140

== ENCOUNTER 2023-08-06 09:26 | Outpatient (AMB) | payer BC, SELFPAY ==
--- NOTE | 2023-08-06 09:32 | MHC.OFFVISWM ---
VS Expanded 08/06/23 09:38 BP 127/67 Blood Pressure Location Rt brachial Blood Pressure Position Sitting Pulse 56 Pulse Source Pulse Oximeter Temp 97.5 F Temperature Source Temporal Artery Scan Pulse Oximetry 98 Oxygen Delivery Method Room Air Height 5 ft 11 in Weight 202 lb 12 oz BMI 28.3 Body Fat % 32.4 Body Fat Mass 65.6 Fat Free Mass 137.0 Visceral Fat Rating 7.0 Body Water % 48.1 Body Water Mass 97.4 Muscle Mass/Score 130.0 Basal Metabolic Rate/Score 1,845 Intake Visit Reasons: (OV) PO LSG 03/04/23 Allergies No Known Allergies [No Known Allergies*] Allergy (Verified 08/06/23 09:38) HPI Comments Details: This?a?47?yo female who is s/p LSG without hiatal hernia repair on?03/04/2023. Presents for 5 months post op visit. Weight today is 202.8 pounds, with a BMI of 28.3. There has been a 84.2 pound weight loss,(initial weight 287 pounds) since starting the program on 10/23/2022 reflecting a 41.5 % total body weight loss and a weight loss of 59.4 pounds since surgery (operative weight 262.2 pounds) reflecting a 22.6 % TBWL since surgery. No complaints of nausea, emesis, abdominal pain or reflux. Reports infrequent but normal bowel movements every 1-2 days and uses stool softeners regularly. Taking pre yogi mvi States she feels awesome and she is happy where she is. Ultimate goal is about 185 pounds Present meal plan includes: fairlife rtd (42 gm x 2 per week, 30 gm x 5) 5 forks protein, 5 forks veg 5 forks protein and 5 forks veg niuean yogurt Drinking 32 oz water ? Exercise routine includes: walking outside, 4 days /week swim 3 days per week, 30 min elliptical, rowing machine and walking pad at home [facility] Medical History (Updated 03/06/23 @ 00:03 by Emmett Frazier) Pre-op evaluation Preoperative cardiovascular examination BMI 37.0-37.9, adult BMI 38.0-38.9,adult HANNAH (obstructive sleep apnea) Hypersomnolence Hyperlipidemia Diverticulitis DJD (degenerative joint disease) Morbid obesity Surgical History Hx of laparoscopic partial gastrectomy Hx of tubal ligation Hx of cholecystectomy Family History Father CAD (coronary artery disease) Social History Household Members: Family Housing: House Are you a primary residential care facility manager to a significant other at home: No Do you presently have visiting nurse or other home services: No 75 years or older and lives alone: No Alcohol intake: current Alcohol intake frequency: a few times a week Patient Tobacco Use Status: Former Tobacco user Tobacco use type: Cigarette Physical Exam Vital Signs: Last Vital Signs Temp 97.5 F 08/06/23 09:38 Pulse 56 08/06/23 09:38 BP 127/67 08/06/23 09:38 Pulse Ox 98 08/06/23 09:38 Oxygen Delivery Method Room Air 08/06/23 09:38 BMI result Body Mass Index 28.3 Assessment & Plan Assessment & Plan (1) S/P laparoscopic sleeve gastrectomy: Code(s): Z98.84 - Bariatric surgery status Category: Surgical Plan: Check six-month labs between now and her next appointment. Patient wishes to continue her meal plan although we will change slightly 30 g fair life ready to drink shake Two meals with 5 forks of protein and 5 of vegetables Encouraged to increase her exercise and be consistent with counting calories. She has multiple pieces of equipment at home. Goal is to burn 2000 calories per week. Orders: Orders Vitamin B12 and Folate Today E55.9 - Vitamin D deficiency, unspecified, E78.5 - Hyperlipidemia, unspecified, Z98.84 - Bariatric surgery status Vitamin B1 Today E55.9 - Vitamin D deficiency, unspecified, E78.5 - Hyperlipidemia, unspecified, Z98.84 - Bariatric surgery status Vitamin A Today E55.9 - Vitamin D deficiency, unspecified, E78.5 - Hyperlipidemia, unspecified, Z98.84 - Bariatric surgery status Ferritin Today E55.9 - Vitamin D deficiency, unspecified, E78.5 - Hyperlipidemia, unspecified, Z98.84 - Bariatric surgery status Basic Metabolic Panel Today E55.9 - Vitamin D deficiency, unspecified, E78.5 - Hyperlipidemia, unspecified, Z98.84 - Bariatric surgery status Insulin Today E55.9 - Vitamin D deficiency, unspecified, E78.5 - Hyperlipidemia, unspecified, Z98.84 - Bariatric surgery status Hemoglobin A1c Today E55.9 - Vitamin D deficiency, unspecified, E78.5 - Hyperlipidemia, unspecified, Z98.84 - Bariatric surgery status Complete Blood Count Auto Diff Today E55.9 - Vitamin D deficiency, unspecified, E78.5 - Hyperlipidemia, unspecified, Z98.84 - Bariatric surgery status Lipid Panel Today E55.9 - Vitamin D deficiency, unspecified, E78.5 - Hyperlipidemia, unspecified, Z98.84 - Bariatric surgery status IRON PROFILE Today E55.9 - Vitamin D deficiency, unspecified, E78.5 - Hyperlipidemia, unspecified, Z98.84 - Bariatric surgery status Zinc Today E55.9 - Vitamin D deficiency, unspecified, E78.5 - Hyperlipidemia, unspecified, Z98.84 - Bariatric surgery status C Reactive Protein Today E55.9 - Vitamin D deficiency, unspecified, E78.5 - Hyperlipidemia, unspecified, Z98.84 - Bariatric surgery status TSH reflex Free T4 Today E55.9 - Vitamin D deficiency, unspecified, E78.5 - Hyperlipidemia, unspecified, Z98.84 - Bariatric surgery status Vitamin D 25-OH Total Today E55.9 - Vitamin D deficiency, unspecified, E78.5 - Hyperlipidemia, unspecified, Z98.84 - Bariatric surgery status Medications: New sennosides (Senna Lax) 17.2 mg (2 x 8.6 mg) PO BEDTIME PRN 90 tabs 0RF constipation
[2023-08-06 09:38] VITALS: BP 127/67; PULSE 56; TEMP 36.4; O2SAT 98; BMI 28.3
== END 2023-08-06 11:52 | disposition home or self-care (01) ==
PROVIDERS: PCP Family Medicine; Visit Provider Physician Assistant Surgical
DX: E66.3 Overweight (principal); Z68.28 Body mass index [BMI] 28.0-28.9, adult; Z90.3 Acquired absence of stomach [part of]; Z98.84 Bariatric surgery status
CPT/HCPCS: 99214

== ENCOUNTER 2023-09-10 10:17 | Outpatient (AMB) | payer BC, SELFPAY ==
[2023-09-10 08:37] VITALS: BMI 26.7
--- NOTE | 2023-09-10 08:37 | A.OFFVIS_ITS ---
VS Expanded 09/10/23 08:37 Height 5 ft 11 in Weight 191 lb 6.4 oz BMI 26.7 Body Fat % 32.3 Body Fat Mass 61.8 Fat Free Mass 129.6 Visceral Fat Rating 9 Body Water % 46.5 Body Water Mass 89 Muscle Mass/Score 122 Basal Metabolic Rate/Score 1,640 Intake Visit Reasons: (tV) PO LSG 03/04/23 Sports Announcer Required: No Allergies No Known Allergies [No Known Allergies*] Allergy (Verified 08/06/23 09:38) HPI Comments Details: This?a?47?yo female who is s/p LSG without hiatal hernia repair on?03/04/2023. Presents for 6 months post op visit. Weight today is 191.4 pounds, with a BMI of 26.7. There has been a 95.6 pound weight loss,(initial weight 287 pounds) since starting the program on 10/23/2022 reflecting a 33.3 % total body weight loss and a weight loss of 70.6 pounds since surgery (operative weight 262.2 pounds) reflecting a 26.9 % TBWL since surgery. No complaints of nausea, emesis, abdominal pain or reflux. Reports infrequent but normal bowel movements every 1- 2 days and uses stool softeners regularly. Taking pre yogi mvi States she feels awesome and she is happy where she is. Ultimate goal is about 185 pounds Present meal plan includes: fairlife rtd (30 gm) or wake up wrap or egg w low carb tortilla 5 forks protein, 5 forks veg 5 forks protein and 5 forks veg Drinking 32 oz water ? Exercise routine includes: walking outside, 4 days /week swim 3 days per week, 30 min elliptical, rowing machine and walking pad at home Any post op complications: none HANNAH: never DM: never HTN: never Hyperlipidemia: improved GERD:?0-5 scale ??0 = no symptoms ??1 = symptoms noticeable but not bothersome 2 =symptoms bothersome but not daily ? 3 = symptoms bothersome and daily 4 = symptoms affect daily activities 5 = symptoms are incapacitating, unable to do daily activities ? How bad is the heartburn: 0 ? Heartburn while lying down: 0 ? Heartburn when standing up: 0 ? Heartburn after meals: 0 ? Does heartburn change your diet: 0 ? Does heartburn wake you up from sleep: 0 ? Do you have difficulty swallowin ? Do you have pain with swallowin ? If you take medicine for your reflux, does this affect your daily life: 0 Satisfaction with present condition - satisfied or not satisfied: satisfied [facility] Medical History (Updated 09/10/23 @ 10:17 by GLORY Persaud) Pre-op evaluation Preoperative cardiovascular examination BMI 37.0-37.9, adult BMI 38.0-38.9,adult HANNAH (obstructive sleep apnea) Hypersomnolence Hyperlipidemia Diverticulitis DJD (degenerative joint disease) Morbid obesity Surgical History Hx of laparoscopic partial gastrectomy Hx of tubal ligation Hx of cholecystectomy Family History Father CAD (coronary artery disease) Social History Household Members: Family Housing: House Are you a primary healthcare administrative assistant to a significant other at home: No Do you presently have visiting nurse or other home services: No 75 years or older and lives alone: No Alcohol intake: current Alcohol intake frequency: a few times a week Patient Tobacco Use Status: Former Tobacco user Tobacco use type: Cigarette Telehealth Telehealth Telehealth Platform: Telephone Location of provider rendering services: practice address Location of patient: other Patient Identification confirmed using: Name, : Yes Telehealth method: voice only Patient verbally consented to treatment: Yes Patient verbally consented to billing insurance company: Yes Patient informed of any privacy concerns related to visit: Yes Minutes spent on Phone/Video with Pt.: 20 Assessment & Plan Assessment & Plan (1) Overweight (BMI 25.0-29.9): Code(s): E66.3 - Overweight Category: Medical Plan: Overall, patient is doing well and has made excellent progress. Recommend following meal plan consistently, avoiding adding deli meats to her eggs in the morning if she were to eat eggs. Encouraged to increase fluid to 64 oz daily. Additionally, encouraged to track calories and exercise on a daily basis with a goal of burning approximately 2000 calories per week. Her labs from last month all look fairly good except for low iron and low vitamin-A which have been supplemented. Additionally, her cholesterol has improved and will decrease her atorvastatin. Follow-up in the office in 4-6 weeks.
== END 2023-09-10 10:20 | disposition home or self-care (01) ==
LOC: HO.HBS 10:17
PROVIDERS: PCP Family Medicine; Visit Provider Physician Assistant Surgical
DX: E66.3 Overweight (principal); Z68.26 Body mass index [BMI] 26.0-26.9, adult
CPT/HCPCS: 99213

== ENCOUNTER → 2023-09-10 10:17 | Outpatient (BNVA) | payer BC, SELFPAY | PROVIDERS: PCP Family Medicine; Visit Provider Physician Assistant Surgical | DX: Z98.84 Bariatric surgery status (principal); E78.5 Hyperlipidemia, unspecified; E55.9 Vitamin D deficiency, unspecified ==

== ENCOUNTER 2023-11-15 14:30 | Outpatient (AMB) | payer BC, SELFPAY ==
--- NOTE | 2023-11-15 10:23 | A.OFFVIS_ITS ---
VS Expanded 11/15/23 10:24 Height 5 ft 11 in Weight 186 lb BMI 25.9 Body Fat % 31.1 Body Fat Mass 57.8 Fat Free Mass 128 Intake Visit Reasons: (TV) PO LSG 03/04/23 Allergies No Known Allergies [No Known Allergies*] Allergy (Verified 08/06/23 09:38) HPI Comments Details: This?a?48?yo female who is s/p LSG without hiatal hernia repair on?03/04/2023. Presents for 8 months post op visit. Weight today is 186 pounds, with a BMI of 25.9. There has been a 101 pound weight loss,(initial weight 287 pounds) since starting the program on 10/23/2022 reflecting a 35.1 % total body weight loss and a weight loss of 76.2 pounds since surgery (operative weight 262.2 pounds) reflecting a 29 % TBWL since surgery. No complaints of nausea, emesis, abdominal pain or reflux. Reports infrequent but normal bowel movements every 1- 2 days and uses stool softeners regularly. Taking pre mvi States she feels awesome and she is happy where she is. Ultimate goal is about 185 pounds. She is satisfied with her current weight. Present meal plan includes: egg whites or low card tortilla wrap w egg and cheese or serbian yogurt chipotle kids meal Drinking 40-50 oz water Exercise routine includes: Nothing formal, reports being very active in her life [facility] Medical History (Updated 09/10/23 @ 10:17 by GLORY Persaud) Pre-op evaluation Preoperative cardiovascular examination BMI 37.0-37.9, adult BMI 38.0-38.9,adult HANNAH (obstructive sleep apnea) Hypersomnolence Hyperlipidemia Diverticulitis DJD (degenerative joint disease) Morbid obesity Surgical History Hx of laparoscopic partial gastrectomy Hx of tubal ligation Hx of cholecystectomy Family History Father CAD (coronary artery disease) Social History Household Members: Family Housing: House Are you a primary critical care physician to a significant other at home: No Do you presently have visiting nurse or other home services: No 75 years or older and lives alone: No Alcohol intake: current Alcohol intake frequency: a few times a week Patient Tobacco Use Status: Former Tobacco user Tobacco use type: Cigarette Telehealth Telehealth Telehealth Platform: Telephone Location of provider rendering services: practice address Location of patient: address on file Patient Identification confirmed using: Name, : Yes Telehealth method: voice only Patient verbally consented to treatment: Yes Patient verbally consented to billing insurance company: Yes Patient informed of any privacy concerns related to visit: Yes Minutes spent on Phone/Video with Pt.: 12 Assessment & Plan Assessment & Plan (1) S/P laparoscopic sleeve gastrectomy: Code(s): Z98.84 - Bariatric surgery status Category: Surgical Plan: Patient wishes to continue her current meal plan. Discussed the importance of remaining on a structured meal plan as well as incorporating a structured exercise plan. She states that she is very active in her life and lifestyle, she has lost a significant amount of weight and is aware of her pattern behavior. She wants to continue what she is doing for her meal plan. Discussed incorporating a more structured exercise routine. We will have her return to the office in approximately 2 months with the understanding that she will call sooner. She was also encouraged to text her weight weekly and if any questions or concerns.
[2023-11-15 10:24] VITALS: BMI 25.9
== END 2023-11-15 14:48 | disposition home or self-care (01) ==
LOC: HO.HBS 14:42
PROVIDERS: PCP Family Medicine; Visit Provider Physician Assistant Surgical
DX: E66.3 Overweight (principal); Z68.25 Body mass index [BMI] 25.0-25.9, adult; Z90.3 Acquired absence of stomach [part of]; Z98.84 Bariatric surgery status
CPT/HCPCS: 98967

== ENCOUNTER → 2023-11-15 14:30 | Outpatient (BNVA) | payer BC, SELFPAY | PROVIDERS: PCP Family Medicine; Visit Provider Physician Assistant Surgical ==

== ENCOUNTER 2024-01-10 09:30 | Outpatient (AMB) | payer BC, SELFPAY ==
--- NOTE | 2024-01-10 07:48 | A.OFFVIS_ITS ---
VS Expanded 01/10/24 07:49 Height 5 ft 11 in Weight 182 lb 4 oz BMI 25.4 Body Fat % 30.4 Body Fat Mass 55.4 Fat Free Mass 127 Visceral Fat Rating 8 Body Water % 47.8 Body Water Mass 87.1 Muscle Mass/Score 119.2 Basal Metabolic Rate/Score 1,614 Intake Visit Reasons: (TV) PO LSG 03/04/23 Pharmacy Services Representative Required: No Allergies No Known Allergies [No Known Allergies*] Allergy (Verified 08/06/23 09:38) Medication List - Last Reconciled 01/10/24 by GLORY Persaud atorvastatin 20 mg (1/2 x 40 mg) PO DAILY iron,carbonyl-vitamin C 65 mg iron- 125 mg (Vitron-C) 1 tab PO DAILY 90 days sennosides (Senna Lax) 17.2 mg (2 x 8.6 mg) PO BEDTIME PRN vitamin A palmitate 3,000 mcg PO DAILY 90 days HPI Comments Details: This?a?48?yo female who is s/p LSG without hiatal hernia repair on?03/04/2023. Presents for 10 months post op visit. Weight today is 182.4 pounds, with a BMI of 25.9. There has been a 101 pound weight loss,(initial weight 287 pounds) since starting the program on 10/23/2022 reflecting a 35.1 % total body weight loss and a weight loss of 76.2 pounds since surgery (operative weight 262.2 pounds) reflecting a 29 % TBWL since surgery. No complaints of nausea, emesis, abdominal pain or reflux. Reports infrequent but normal bowel movements every 1- 2 days and uses stool softeners regularly. Taking pre mvi States she feels awesome and she is happy where she is. She is satisfied with her current weight. Was on vacation last week, continues to avoid exercise even though has equipment at home. Reports that she is a create her habit and just has not incorporated exercise into her routine. Present meal plan includes: egg whites or low card tortilla wrap w egg and cheese or pitcairn islander yogurt chipotle kids meal Drinking 40-50 oz water Exercise routine includes: Nothing formal, reports being very active in her life elliptical at home. [facility] Medical History (Updated 09/10/23 @ 10:17 by GLORY Persaud) Pre-op evaluation Preoperative cardiovascular examination BMI 37.0-37.9, adult BMI 38.0-38.9,adult HANNAH (obstructive sleep apnea) Hypersomnolence Hyperlipidemia Diverticulitis DJD (degenerative joint disease) Morbid obesity Surgical History Hx of laparoscopic partial gastrectomy Hx of tubal ligation Hx of cholecystectomy Family History Father CAD (coronary artery disease) Social History Household Members: Family Housing: House Are you a primary dog daycare provider to a significant other at home: No Do you presently have visiting nurse or other home services: No 75 years or older and lives alone: No Alcohol intake: current Alcohol intake frequency: a few times a week Patient Tobacco Use Status: Former Tobacco user Tobacco use type: Cigarette Physical Exam Vital Signs: BMI result Body Mass Index 25.4 Telehealth Telehealth Telehealth Platform: Telephone Location of provider rendering services: practice address Location of patient: address on file Patient Identification confirmed using: Name, : Yes Telehealth method: voice only Patient verbally consented to treatment: Yes Patient verbally consented to billing insurance company: Yes Patient informed of any privacy concerns related to visit: Yes Minutes spent on Phone/Video with Pt.: 12 Assessment & Plan Assessment & Plan (1) S/P laparoscopic sleeve gastrectomy: Code(s): Z98.84 - Bariatric surgery status Category: Surgical Plan: Overall, patient is doing fairly well. She was advised that she can not sustain on her current meal plan but she states that she has a Mahad her of habit and wishes to continue. Discussed the importance of adding exercise into her routine. She has a follow-up appointment for her 1 year postop. Encouraged to continue to send weight is weekly and text with any questions or concerns.
[2024-01-10 07:49] VITALS: BMI 25.4
== END 2024-01-10 13:49 | disposition home or self-care (01) ==
LOC: HO.HBS 09:44
PROVIDERS: PCP Family Medicine; Visit Provider Physician Assistant Surgical
DX: E66.3 Overweight (principal); Z68.25 Body mass index [BMI] 25.0-25.9, adult; Z90.3 Acquired absence of stomach [part of]; Z98.84 Bariatric surgery status
CPT/HCPCS: 98967

== ENCOUNTER 2024-03-06 08:27 | Outpatient (AMB) | payer BC, SELFPAY ==
--- NOTE | 2024-03-06 08:31 | A.OFFVIS_ITS ---
VS Expanded 03/06/24 08:41 BP 123/61 Blood Pressure Location Rt brachial Blood Pressure Position Sitting Pulse 57 Pulse Source Pulse Oximeter Temp 97.0 F Temperature Source Temporal Artery Scan Pulse Oximetry 99 Oxygen Delivery Method Room Air Height 5 ft 11 in Weight 178 lb 9.6 oz BMI 24.9 Body Fat % 30.9 Body Fat Mass 55.2 Fat Free Mass 123.4 Visceral Fat Rating 6.0 Body Water % 49.3 Body Water Mass 88.0 Muscle Mass/Score 117.2 Basal Metabolic Rate/Score 1,654 Intake Visit Reasons: (OV) PO LSG 03/04/23 Allergies No Known Allergies [No Known Allergies*] Allergy (Verified 03/06/24 08:35) HPI Comments Details: This?a?48?yo female who is s/p LSG without hiatal hernia repair on?03/04/2023. Presents for 1 year post op visit. Weight today is 178.6 pounds, with a BMI of 24.9. There has been a 108.4 pound weight loss,(initial weight 287 pounds) since starting the program on 10/23/2022 reflecting a 37.7 % total body weight loss and a weight loss of 83.6 pounds since surgery (operative weight 262.2 pounds) reflecting a 31.8 % TBWL since surgery. No complaints of nausea, emesis, abdominal pain or reflux. Reports infrequent but normal bowel movements every 1-2 days and uses stool softeners regularly. Taking pre yogi mvi States she feels awesome and she is happy where she is. She is satisfied with her current weight. She denies any issues with excess skin. Present meal plan includes: coffee w toast/egg/avocado or shake or smoothie w strawberries 1/2 banana, 1 scoop protein powder (celebrate 4 in 1 or isopure) chipotle kids meal or skinny pasta leftovers 5 forks protein and vegetables Drinking 40-50 oz water Exercise routine includes: Nothing formal, reports being very active in her life gym at her home elliptical at home. Any post op complications: none HANNAH: never DM: never HTN: never Hyperlipidemia: improved GERD:?0-5 scale ??0 = no symptoms ??1 = symptoms noticeable but not bothersome 2 =symptoms bothersome but not daily ? 3 = symptoms bothersome and daily 4 = symptoms affect daily activities 5 = symptoms are incapacitating, unable to do daily activities ? How bad is the heartburn: 0 ? Heartburn while lying down: 0 ? Heartburn when standing up: 0 ? Heartburn after meals: 0 ? Does heartburn change your diet: 0 ? Does heartburn wake you up from sleep: 0 ? Do you have difficulty swallowin ? Do you have pain with swallowin ? If you take medicine for your reflux, does this affect your daily life: 0 Satisfaction with present condition - satisfied or not satisfied: satisfied [facility] Medical History Pre-op evaluation Preoperative cardiovascular examination BMI 37.0-37.9, adult BMI 38.0-38.9,adult HANNAH (obstructive sleep apnea) Hypersomnolence Hyperlipidemia Diverticulitis DJD (degenerative joint disease) Morbid obesity Surgical History Hx of laparoscopic partial gastrectomy Hx of tubal ligation Hx of cholecystectomy Family History Father CAD (coronary artery disease) Social History Household Members: Family Housing: House Are you a primary hearing care practitioner to a significant other at home: No Do you presently have visiting nurse or other home services: No 75 years or older and lives alone: No Alcohol intake: current Alcohol intake frequency: a few times a week Patient Tobacco Use Status: Former Tobacco user Tobacco use type: Cigarette Physical Exam Const General: cooperative and no acute distress Orientation/consciousness: patient oriented x3 Resp Effort & Inspection: normal respiratory effort Auscultation: clear to auscultation bilaterally Cardio Rate: regular rate Rhythm: regular rhythm GI Inspection: Yes normal to inspection and Yes incision (well healed) Palpation (GI): Soft to palpation and no masses Neuro General: patient oriented x3 Assessment & Plan Assessment & Plan (1) S/P laparoscopic sleeve gastrectomy: Code(s): Z98.84 - Bariatric surgery status Category: Surgical Plan: Patient is doing very well. She has achieved a healthy weight. Additionally, she is eating a healthy meal plan. We did encourage exercise both weight training and cardio. We will check 1 year postop labs. Encouraged text weight weekly and with any questions or concerns. We will have her follow-up in the [facility] in approximately 6 months. She is not complaining of any significant excess skin, but should this become a problem, we will address it. Overall, she is extremely satisfied with the results of her procedure and hard work. Orders: Orders Insulin Today E55.9 - Vitamin D deficiency, unspecified, E78.5 - Hyperlipidemia, unspecified, Z98.84 - Bariatric surgery status Complete Blood Count Auto Diff Today E55.9 - Vitamin D deficiency, unspecified, E78.5 - Hyperlipidemia, unspecified, Z98.84 - Bariatric surgery status IRON PROFILE Today E55.9 - Vitamin D deficiency, unspecified, E78.5 - Hyperlipidemia, unspecified, Z98.84 - Bariatric surgery status Vitamin B12 and Folate Today E55.9 - Vitamin D deficiency, unspecified, E78.5 - Hyperlipidemia, unspecified, Z98.84 - Bariatric surgery status C Reactive Protein Today E55.9 - Vitamin D deficiency, unspecified, E78.5 - Hyperlipidemia, unspecified, Z98.84 - Bariatric surgery status TSH reflex Free T4 Today E55.9 - Vitamin D deficiency, unspecified, E78.5 - Hyperlipidemia, unspecified, Z98.84 - Bariatric surgery status Hemoglobin A1c Today E55.9 - Vitamin D deficiency, unspecified, E78.5 - Hyperlipidemia, unspecified, Z98.84 - Bariatric surgery status Lipid Panel Today E55.9 - Vitamin D deficiency, unspecified, E78.5 - Hyperlipidemia, unspecified, Z98.84 - Bariatric surgery status Comprehensive Met. Panel Today E55.9 - Vitamin D deficiency, unspecified, E78.5 - Hyperlipidemia, unspecified, Z98.84 - Bariatric surgery status Zinc Today E55.9 - Vitamin D deficiency, unspecified, E78.5 - Hyperlipidemia, unspecified, Z98.84 - Bariatric surgery status Vitamin B1 Today E55.9 - Vitamin D deficiency, unspecified, E78.5 - Hyperlipidemia, unspecified, Z98.84 - Bariatric surgery status Vitamin A Today E55.9 - Vitamin D deficiency, unspecified, E78.5 - Hyperlipidemia, unspecified, Z98.84 - Bariatric surgery status Ferritin Today E55.9 - Vitamin D deficiency, unspecified, E78.5 - Hyperlipidemia, unspecified, Z98.84 - Bariatric surgery status Vitamin D 25-OH Total Today E55.9 - Vitamin D deficiency, unspecified, E78.5 - Hyperlipidemia, unspecified, Z98.84 - Bariatric surgery status
[2024-03-06 08:41] VITALS: BP 123/61; PULSE 57; TEMP 36.1; O2SAT 99; BMI 24.9
== END 2024-03-06 09:02 | disposition home or self-care (01) ==
PROVIDERS: PCP Family Medicine; Visit Provider Physician Assistant Surgical
DX: Z71.3 Dietary counseling and surveillance (principal); Z98.84 Bariatric surgery status
CPT/HCPCS: 99213

== ENCOUNTER 2024-03-06 08:27 | Outpatient (REF) | payer BC, SELFPAY ==
[2024-03-06 09:17] LABS: MANUAL DIFF FLAG NO
[2024-03-06 10:08] LABS: Basophils Absolute Auto 0.1 X10*3/uL (0.0-0.2); Basophils Percent Auto 1.4 % (0-2); Eosinophils Absolute Auto 0.1 X10*3/uL (0.0-0.4); Eosinophils Percent Auto 2.8 % (0-4); Hematocrit 38.4 % (37.0-47.0); Hemoglobin 11.8 g/dl (12.0-16.0); Imm Gran Abs Auto 0.01 X10*3/uL (0.00-0.03); Imm Gran Pct Auto 0.2 % (0.0-0.4); Lymphocytes Absolute Auto 1.4 X10*3/uL (1.2-4.9); Lymphocytes Percent Auto 28.8 % (20-40); Mean Corpuscular HGB Conc 30.7 g/dl (31.0-35.0); Mean Corpuscular Hemoglobin 24.2 pg (27.0-33.0); Mean Corpuscular Volume 78.7 fL (80.0-98.0); Mean Platelet Volume 10.1 fL (9.4-12.3); Monocytes Absolute Auto 0.3 X10*3/uL (0.1-1.2); Monocytes Percent Auto 6.7 % (2-11); Neutrophils Percent Auto 60.1 % (45-73); Platelet Count 289 X10*3/uL (160-400); Red Blood Count 4.88 X10*6/uL (4.20-5.50); Red Cell Distribution Width 14.5 % (11.0-16.0)
[2024-03-06 10:12] LABS: Estimated Average Glucose 108 mg/dL; Hemoglobin A1C 108.8472 umol/L; Hemoglobin A1c % 5.4 % (<6.0); Total Hemoglobin (HGBA1C) 3053.6471 umol/L
[2024-03-06 10:45] LABS: Alanine Aminotransferase 38 U/L (0-31); Albumin Level 4.2 g/dL (3.5-5.0); Alkaline Phosphatase 79 U/L (39-117); Anion Gap 9 (12-20); Aspartate Amino Transferase 23 U/L (5-31); Bilirubin Total 0.9 mg/dL (0.0-1.0); Blood Urea Nitrogen 20 mg/dL (9-16); C Reactive Protein 0.12 mg/dL (< or = 0.50); Calcium 9.2 mg/dL (8.4-10.2); Carbon Dioxide 28 mmol/L (22-29); Chloride 108 mmol/L (96-108); Cholesterol 195 mg/dL (<200); Estimated Glomerular Filt Rate > 60; Glucose Random 79 mg/dL (60-115); HDL Cholesterol 82 mg/dL (>40); Iron 105 mcg/dL (30-160); LDL Cholesterol Calculated 105 mg/dL (<100); Percent Iron Saturation 29 % (15-50); Sodium 141 mmol/L (135-145); Total Iron Binding Capacity 361 mcg/dL (228-428); Total Protein 7.7 g/dL (6.5-8.0); Triglycerides 44 mg/dL (<150); Unsaturated Iron Binding 256 ug/dL
[2024-03-06 11:02] LABS: Ferritin 13 ng/mL (10-250); Insulin 2 uU/mL (2-29); TSH reflex Free T4 0.48 uIU/mL (0.32-4.0); Vitamin D 25-OH Total 39.3 ng/mL (>30)
[2024-03-06 11:12] LABS: Folate 15.7 ng/mL (> or = 4.0); Vitamin B12 589 pg/mL (200-900)
[2024-03-08 20:03] LABS: Zinc 75 mcg/dL (60-130)
[2024-03-09 00:18] LABS: Vitamin A 37 mcg/dL (38-98)
[2024-03-10 20:03] LABS: Vitamin B1 12 nmol/L (8-30)
== END 2024-03-06 08:28 | disposition home or self-care (01) ==
LOC: HO.LAB 08:27
PROVIDERS: PCP Family Medicine; Visit Provider Physician Assistant Surgical
DX: E55.9 Vitamin D deficiency, unspecified (principal); E78.5 Hyperlipidemia, unspecified; Z98.84 Bariatric surgery status; Z13.1 Encounter for screening for diabetes mellitus
CPT/HCPCS: 36415; 80053; 80061; 82306; 82607; 82728; 82746; 83036; 83525; 83540; 84425; 84443; 84590; 84630; 85025; 86140

== ENCOUNTER 2024-09-04 08:11 | Outpatient (REF) | payer BC, SELFPAY ==
[2024-09-04 09:22] LABS: MANUAL DIFF FLAG NO
[2024-09-04 10:05] LABS: Hematocrit 32.7 % (37.0-47.0); Hemoglobin 10.0 g/dl (12.0-16.0); Imm Gran Abs Auto 0.01 X10*3/uL (0.00-0.03); Imm Gran Pct Auto 0.2 % (0.0-0.4); Lymphocytes Absolute Auto 1.3 X10*3/uL (1.2-4.9); Mean Corpuscular HGB Conc 30.6 g/dl (31.0-35.0); Mean Corpuscular Hemoglobin 22.4 pg (27.0-33.0); Mean Corpuscular Volume 73.3 fL (80.0-98.0); NRBC Abs Auto 0.000 X10*3/uL (0.0-0.012); NRBC Pct Auto 0.0 /100WBC (0.0-0.2); Platelet Count 284 X10*3/uL (160-400); Red Blood Count 4.46 X10*6/uL (4.20-5.50); White Blood Count 4.1 X10*3/uL (4.8-10.8)
[2024-09-04 10:19] LABS: Hemoglobin A1C 97.1641 umol/L; Total Hemoglobin (HGBA1C) 2682.7809 umol/L
[2024-09-04 11:08] LABS: Anion Gap 8 (12-20); Blood Urea Nitrogen 19 mg/dL (9-16); Calcium 8.8 mg/dL (8.4-10.2); Carbon Dioxide 27 mmol/L (22-29); Chloride 110 mmol/L (96-108); Cholesterol 201 mg/dL (<200); Estimated Glomerular Filt Rate > 60; HDL Cholesterol 73 mg/dL (>40); Iron 46 mcg/dL (30-160); Percent Iron Saturation 12 % (15-50); Potassium 4.0 mmol/L (3.3-5.1); Sodium 141 mmol/L (135-145); Total Iron Binding Capacity 381 mcg/dL (228-428); Triglycerides 45 mg/dL (<150); Unsaturated Iron Binding 335 ug/dL
[2024-09-04 11:10] LABS: Ferritin 4 ng/mL (10-250)
[2024-09-04 11:21] LABS: Folate 13.2 ng/mL (> or = 4.0); Vitamin B12 438 pg/mL (200-900)
== END 2024-09-04 08:12 | disposition home or self-care (01) ==
LOC: HO.LAB 08:11
PROVIDERS: PCP Family Medicine; Visit Provider Physician Assistant Surgical
DX: Z98.84 Bariatric surgery status (principal); E55.9 Vitamin D deficiency, unspecified; E78.5 Hyperlipidemia, unspecified
CPT/HCPCS: 36415; 80048; 80061; 82306; 82607; 82728; 82746; 83036; 83525; 83540; 84425; 84443; 84590; 84630; 85025; 86140

== ENCOUNTER 2024-09-04 08:11 | Outpatient (AMB) | payer BC, SELFPAY ==
--- OUTSIDE RECORDS SUMMARY | 2024-09-04 08:15 | XMS_ITS | Clinical Summary ---
Author Organization [facility] Address [address] [place] [address] Care Team Providers Care Warehouse Coordinator Name Role Phone Unavailable Primary Care Provider Unavailabl e Social History Tobacco Use Types Packs/Day Years Used Date Smoking Tobacco: Never Assessed Comments Unknown Sex and Gender Information Value Date Recorded Sex Assigned at Not on file Legal Sex Female 8:47 PM EDT Gender Identity Not on file Sexual Orientation Not on file Plan of Treatment Health Maintenance Due Date Last Done Comments Hepatitis C Screening 1975 Pap Smear 1991 DTaP/Tdap/Td (1 - Tdap) 09/30/1993 Hep B (1 of 3 - 19+ 3-dose series) 09/30/1994 Mammogram/Breast Imaging 2015 COVID-19 Vaccine ( - 2023-2 5 season) 2023 Influenza (#1) 2024 Zoster (Shingrix) (1 of 2) 09/30/2025 HPV Vaccine Aged Out No longer eligi ble based on patient's age to complete this topic Hep A Aged Out No longer eligi ble based on patient's age to complete this topic Hib Aged Out No longer eligi ble based on patient's age to complete this topic Meningococcal ACWY Aged Out No longer eligible based on patient's age to complete this topic Pneumococcal Aged Out No longer eligi ble based on patient's age to complete this topic Insurance [facility] PPO * Guarantor: JOLYNN COYNE Account Type Relation to Patient Date of Phone Billing Address [address] [place] [address] [employer]
--- NOTE | 2024-09-04 08:19 | A.OFFVIS_ITS ---
VS Expanded 09/04/24 08:41 BP 115/62 Blood Pressure Location Rt brachial Blood Pressure Position Sitting Pulse 57 Pulse Source Pulse Oximeter Temp 97.3 F Temperature Source Temporal Artery Scan Pulse Oximetry 98 Oxygen Delivery Method Room Air Height 5 ft 11 in Weight 177 lb 12.8 oz BMI 24.8 Body Fat % 27.5 Body Fat Mass 9.0 Fat Free Mass 28.8 Visceral Fat Rating 5.0 Body Water % 51.6 Body Water Mass 91.8 Muscle Mass/Score 122.4 Basal Metabolic Rate/Score 1,711 Intake Visit Reasons: (OV) PO LSG 03/04/23 [place] All Round Required: No Allergies No Known Allergies (No Known Allergies*) Allergy (Verified 09/04/24 08:33) Medication List - Last Reconciled 09/04/24 by GLORY Persaud atorvastatin 20 mg (1/2 x 40 mg) PO DAILY cholecalciferol (vitamin D3) 125 mcg PO DAILY iron,carbonyl-vitamin C 65 mg iron- 125 mg (Vitron-C) 1 tab PO DAILY 90 days sennosides (Senna Lax) 17.2 mg (2 x 8.6 mg) PO BEDTIME PRN vitamin A palmitate 3,000 mcg PO DAILY 90 days HPI Comments Details: This?a?48?yo female who is s/p LSG without hiatal hernia repair on?03/04/2023. Presents for 1 year 6 month post op visit. Weight today is 177.8 pounds, with a BMI of 24.8. There has been a 109.2 pound weight loss,(initial weight 287 pounds) since starting the program on 10/23/2022 reflecting a 38 % total body weight loss and a weight loss of 84.4 pounds since surgery (operative weight 262.2 pounds) reflecting a 32.1 % TBWL since surgery. No complaints of nausea, emesis, abdominal pain or reflux. Reports infrequent but normal bowel movements every 1-2 days and uses stool softeners regularly. Taking pre mvi States she feels awesome and she is happy where she is. She is satisfied with her current weight. She denies any issues with excess skin. She states that she has been getting increased leg cramps bilateral calves. This happens frequently in the evening, wants to twice per week. This has been going on for the last several months. She wakes up, walks around and eventually it improves. Present meal plan includes: coffee w toast/egg/avocado chipotle kids meal or skinny pasta leftovers 5 forks protein and vegetables Drinking 32-48 oz water Exercise routine includes: Nothing formal, reports being very active in her life gym at her home elliptical at home. Any post op complications: none HANNAH: never DM: never HTN: never Hyperlipidemia: improved GERD:?0-5 scale ??0 = no symptoms ??1 = symptoms noticeable but not bothersome 2 =symptoms bothersome but not daily ? 3 = symptoms bothersome and daily 4 = symptoms affect daily activities 5 = symptoms are incapacitating, unable to do daily activities ? How bad is the heartburn: 0 ? Heartburn while lying down: 0 ? Heartburn when standing up: 0 ? Heartburn after meals: 0 ? Does heartburn change your diet: 0 ? Does heartburn wake you up from sleep: 0 ? Do you have difficulty swallowin ? Do you have pain with swallowin ? If you take medicine for your reflux, does this affect your daily life: 0 Satisfaction with present condition - satisfied or not satisfied: satisfied [facility] Medical History Pre-op evaluation Preoperative cardiovascular examination BMI 37.0-37.9, adult BMI 38.0-38.9,adult HANNAH (obstructive sleep apnea) Hypersomnolence Hyperlipidemia Diverticulitis DJD (degenerative joint disease) Morbid obesity Surgical History Hx of laparoscopic partial gastrectomy Hx of tubal ligation Hx of cholecystectomy Family History Father CAD (coronary artery disease) Social History Household Members: Family Housing: House Are you a primary career services assistant to a significant other at home: No Do you presently have visiting nurse or other home services: No 75 years or older and lives alone: No Alcohol intake: current Alcohol intake frequency: a few times a week Patient Tobacco Use Status: Former Tobacco user Tobacco use type: Cigarette Assessment & Plan Assessment & Plan (1) S/P laparoscopic sleeve gastrectomy: Code(s): Z98.84 - Bariatric surgery status Category: Surgical Plan: Overall, patient is doing very well. She has maintained a healthy weight and healthy lifestyle although not exercising consistently. Discussed the importance of cardio and weight training. With regard to her cramping, this most likely is related to dehydration. Discussed the importance of increased fluids during the day as well as stretching prior to bedtime. We went over lower leg stretching in the office. We will check 18 month postop labs. Have her return to the office in February for her 2 year follow-up with the understanding that she will contact the office sooner should she have any questions or concerns. We did discuss a goal of approximately 70 g of protein per day. She is not quantify of the measuring her food intake but is aware of what she is taking in. Given the fact that she has been consistent over the last 6 months, this is a reasonable approach for her individually, but I did discuss the concern of watching for any weight regain without the quantifiably structured meal plan. Orders: Orders Insulin Today E55.9 - Vitamin D deficiency, unspecified, E78.5 - Hyperlipidemia, unspecified, Z98.84 - Bariatric surgery status IRON PROFILE Today E55.9 - Vitamin D deficiency, unspecified, E78.5 - Hyperlipidemia, unspecified, Z98.84 - Bariatric surgery status C Reactive Protein Today E55.9 - Vitamin D deficiency, unspecified, E78.5 - Hyperlipidemia, unspecified, Z98.84 - Bariatric surgery status Hemoglobin A1c Today E55.9 - Vitamin D deficiency, unspecified, E78.5 - Hyperlipidemia, unspecified, Z98.84 - Bariatric surgery status Complete Blood Count Auto Diff Today E55.9 - Vitamin D deficiency, unspecified, E78.5 - Hyperlipidemia, unspecified, Z98.84 - Bariatric surgery status Lipid Panel Today E55.9 - Vitamin D deficiency, unspecified, E78.5 - Hyperlipidemia, unspecified, Z98.84 - Bariatric surgery status Vitamin B12 and Folate Today E55.9 - Vitamin D deficiency, unspecified, E78.5 - Hyperlipidemia, unspecified, Z98.84 - Bariatric surgery status Zinc Today E55.9 - Vitamin D deficiency, unspecified, E78.5 - Hyperlipidemia, unspecified, Z98.84 - Bariatric surgery status Vitamin B1 Today E55.9 - Vitamin D deficiency, unspecified, E78.5 - Hyperlipidemia, unspecified, Z98.84 - Bariatric surgery status Vitamin A Today E55.9 - Vitamin D deficiency, unspecified, E78.5 - Hyperlipidemia, unspecified, Z98.84 - Bariatric surgery status TSH reflex Free T4 Today E55.9 - Vitamin D deficiency, unspecified, E78.5 - Hyperlipidemia, unspecified, Z98.84 - Bariatric surgery status Ferritin Today E55.9 - Vitamin D deficiency, unspecified, E78.5 - Hyperlipidemia, unspecified, Z98.84 - Bariatric surgery status Vitamin D 25-OH Total Today E55.9 - Vitamin D deficiency, unspecified, E78.5 - Hyperlipidemia, unspecified, Z98.84 - Bariatric surgery status Basic Metabolic Panel Today E55.9 - Vitamin D deficiency, unspecified, E78.5 - Hyperlipidemia, unspecified, Z98.84 - Bariatric surgery status
[2024-09-04 08:41] VITALS: BP 115/62; PULSE 57; TEMP 36.3; O2SAT 98; BMI 24.8
== END 2024-09-04 09:04 | disposition home or self-care (01) ==
LOC: HO.HBS 08:11
PROVIDERS: PCP Family Medicine; Visit Provider Physician Assistant Surgical
DX: Z71.3 Dietary counseling and surveillance (principal); Z90.3 Acquired absence of stomach [part of]; Z98.84 Bariatric surgery status
CPT/HCPCS: 99213